=== PATIENT | female | born 1955 | race Caucasian/White ===

== ENCOUNTER 2016-10-02 20:17 | Observation (INO) ==
[2016-10-02] MEDS ORDERED: Ondansetron 4 MG/2 ML VIAL IVP ONE (20:47)
[2016-10-02] MEDS ORDERED: *HR* Morphine 2 MG/ML SYRINGE IVP ONE (21:16)
[2016-10-02] MEDS ORDERED: MethylPREDNISolone 40 MG/ML VIAL IVP ONE (22:18)
--- NOTE | 2016-10-02 22:20 | Emergency Department Note ---
Disposition Clinical Impression: Lumbar radiculopathy Disposition: Admitted As Inpatient Condition: Fair Time of Disposition: 21:45 Back Pain HPI - General Chief Complaint: ED Back Pain/Injury Stated Complaint: pain after sugery Source: patient, family, EMS Limitations: no limitations - History of Present Illness HPI Narrative: Mrs. Camp had surgery today at the [facility] near [place] by Dr. Ramos. She comes into the [place] ER tonight by squad because of increased pain that is causing vomiting. She has urinated normally since coming home earlier this afternoon. She has not had a bowel movement yet. Her main complaint is that the left-sided sciatica that she has had for months is no better and even worse than before surgery. She is able to move her left leg and is limited only by pain. She is not experiencing any weakness. No fevers chills shortness of breath or chest pain. En route to the ER she had 6 mg of morphine and 5 mg of Versed each IV and is feeling more comfortable as long as she does not move very much. - Related Data Home Medications Medication Instructions Recorded Confirmed Allopurinol [Zyloprim 300 MG] 300 mg PO DAILY 03/08/15 05/22/16 Aspirin [Adult Low Dose Aspirin EC] 81 mg PO DAILY 03/08/15 05/22/16 Estrogens, Conjugated [Premarin] 0.5 mg PO DAILY 03/08/15 05/22/16 Etodolac 400 mg PO BID 03/08/15 05/22/16 Hydroxychloroquine [Plaquenuil] 200 mg PO BID 03/08/15 05/22/16 Leflunomide [Arava] 1 tab PO DAILY 03/08/15 05/22/16 Lovastatin [Mevacor] 20 mg PO HS 03/08/15 05/22/16 Metoprolol [Lopressor] 50 mg PO DAILY 03/08/15 05/22/16 Omeprazole [PriLOSEC] 20 mg PO DAILY 03/08/15 05/22/16 Ranitidine HCl [Zantac] 150 mg PO BID 03/08/15 05/22/16 glipiZIDE [Glucotrol] 5 mg PO DAILY 03/08/15 05/22/16 metFORMIN [Glucophage] 500 mg PO BIDWM 03/08/15 05/22/16 predniSONE [PredniSONE] 5 mg PO DAILY 03/08/15 05/22/16 Folic Acid 1 mg PO DAILY 10/02/16 10/02/16 Furosemide [Lasix] 40 mg PO DAILY PRN 10/02/16 10/02/16 Gabapentin [Gralise] 600 mg PO BID 10/02/16 10/02/16 Mesalamine [Lialda] 2.4 gm PO DAILY 10/02/16 10/02/16 Sulfasalazine [Azulfidine] 500 mg PO DAILY 10/02/16 10/02/16 Previous Rx's Medication Instructions Recorded Oxycodone HCl/Acetaminophen 1 each PO QID #12 tablet 05/22/16 [Percocet 5-325 mg Tablet] Allergies Allergy/AdvReac Type Severity Reaction Status Date / Time Amoxicillin [From Augmentin] Allergy Difficulty Verified 10/02/16 20:32 Breathing aspirin [From Fiorinal] Allergy Difficulty Verified 10/02/16 20:32 Breathing butalbital [From Fiorinal] Allergy Difficulty Verified 10/02/16 20:32 Breathing caffeine [From Fiorinal] Allergy Difficulty Verified 10/02/16 20:32 Breathing clavulanic acid Allergy Difficulty Verified 10/02/16 20:32 [From Augmentin] Breathing codeine Allergy Difficulty Verified 10/02/16 20:32 Breathing Erythromycin Base Allergy Difficulty Verified 10/02/16 20:32 Breathing norfloxacin [From Noroxin] Allergy Difficulty Verified 10/02/16 20:32 Breathing Penicillins Allergy Difficulty Verified 10/02/16 20:32 Breathing Quinolones Allergy See Verified 10/02/16 20:32 Comments Tetracycline Allergy Difficulty Verified 10/02/16 20:32 Breathing epinephrine AdvReac Migraine Verified 10/02/16 20:32 Constitutional: Denies: fever, chills Cardiovascular: Denies: chest pain, palpitations Gastrointestinal: Reports: as per HPI, nausea, vomiting. Denies: abdominal pain Genitourinary: Reports: as per HPI. Denies: urgency, dysuria, frequency Musculoskeletal: Reports: back pain Neurological: Reports: numbness, paresthesias. Denies: weakness Past Medical History - Past Medical History Medical history: Reports: arthritis, diabetes, fibromyalgia, hyperlipidemia, kidney stones, RA, other Surgical history: Reports: cholecystectomy, hysterectomy, other Psychiatric history: Reports: no psych history CAT AND DOG BATHER history: Reports: no CAT AND DOG BATHER history - Social History Smoking Status: Never smoker Smokeless Tobacco Status: No Alcohol use: Reports: none Drug use: Reports: none Physical Exam - General Limitations: no limitations General appearance: alert, in no apparent distress - Head Head exam: normocephalic - Eye Eye exam: Present: normal appearance - ENT ENT exam: mucous membranes moist, other (Nasal cannula in place) - Neck Neck exam: Present: normal inspection - Respiratory Respiratory exam: Present: normal lung sounds bilaterally. Absent: respiratory distress, wheezes, stridor - Cardiovascular Cardiovascular exam: Present: normal rhythm, tachycardia (Just over 100 bpm), normal heart sounds. Absent: systolic murmur, diastolic murmur - Back Exam Back exam: Present: straight leg raise (R) (At 10 degrees positive pain reported right lumbar.), straight leg raise (L) (At 10 degrees positive pain reported left lumbar.), other (Surgical scar lumbar longitudinal approximately 3 cm in length. Mild erythema no exudate.) - Neurological Exam Neurological exam: Present: alert, motor sensory deficit (Left great toe numb on tactile stimulation. Motor testing left lower extremity limited by pain but appears to be 4-5/5. Mrs. Camp feels this to be her baseline.) - Psychiatric Psychiatric exam: Present: anxious - Skin Skin exam: Present: erythema (Erythema her back exam) Course Vital Signs Temperature 97.1 F L 10/02/16 20:20 Pulse Rate 112 10/02/16 20:20 Respiratory Rate 12 10/02/16 20:20 Blood Pressure 144/83 10/02/16 20:20 O2 Sat by Pulse Oximetry 96 10/02/16 20:20 Temperature 98.3 F 10/02/16 22:58 Pulse Rate 112 10/02/16 20:20 Respiratory Rate 12 10/02/16 22:58 Blood Pressure 115/77 10/02/16 22:58 O2 Sat by Pulse Oximetry 96 10/02/16 20:20 Oxygen Delivery Oxygen Delivery Nasal Cannula Back Pain/Injury - MDM Narrative Medical decision making narrative: Low back pain status post surgery. On reassessment after IV Zofran was given she felt still nauseated and not ready for a by mouth challenge. She reports that her pain is returning as well. Room air pulse ox after removing nasal cannula oxygen 92%. She does not appear to be in any respiratory distress. She did urinate once here in the emergency department with staff assistance onto a bedpan. It does not appear as though she will do well going home based on her physical limitations with activities of daily living secondary to the pain. Furthermore her nausea will limit any aggressive by mouth regimen that we might formulate here tonight. I spoke with the on-call OrthoNeuro physician oncology physician assistant at [phone]. I presented the case and she agreed that Mrs. Camp should not return home. I did inquire about advanced imaging mainly an MRI with a patient like Miss Camp and she did not believe that that was urgently necessary as she did not have any motor deficits and was hoping that we could admit here at [place] for pain control steroids and nausea control. Mrs. Camp is amenable to this. She was transferred to the floor in stable condition.
[2016-10-03 00:10] LABS: Basophils % 0.1 %; Hematocrit 33.7 % (35.3-44.9); Hemoglobin 10.7 g/dL (11.5-15.4); Immature Granulocytes % 0.4 % (0-4); Lymphocytes # 0.7 K/mcL (0.6-4.6); Lymphocytes % 8.7 %; Mean Corpuscular HGB Conc 31.8 g/dL (31.6-35.5); Mean Corpuscular Hemoglobin 26.4 pg (28.0-33.3); Mean Platelet Volume 9.5 fL (9.4-12.4); Monocytes # 0.2 K/mcL (0.0-1.3); Monocytes % 2.9 %; Platelet Count 243 K/mcL (140-400); Red Blood Count 4.06 M/mcL (3.82-4.97); Segmented Neutrophils % 87.9 %
[2016-10-03 00:20] LABS: Alanine Aminotransferase 24 Units/L (0-55); Albumin 2.9 g/dL (3.5-5.0); Albumin/Globulin Ratio 0.9 (1.1-2.2); Alkaline Phosphatase 87 Units/L (38-126); Aspartate Amino Transferase 30 Units/L (5-34); BUN/Creatinine Ratio 20 (6-26); Bilirubin,Total 0.4 mg/dL (0.2-1.2); Blood Urea Nitrogen 17 mg/dL (7-20); Carbon Dioxide 24 mEq/L (19-29); Chloride 106 mEq/L (98-109); Globulin 3.3 g/dL (2.4-3.5); Glucose 199 mg/dL (70-99); Osmolality,Calculated 299 (280-300); Potassium 4.2 mEq/L (3.5-4.5); Sodium 141 mEq/L (136-145); Total Protein 6.2 g/dL (6.0-8.3); eGFR For African Americans > 60 (> 60); eGFR For Non-African Americans > 60 (> 60)
[2016-10-03] MEDS ORDERED: Dextrose Gel 15 GM PO PRN ×2 (00:26)
[2016-10-03] MEDS ORDERED: *HR* Dextrose 50 % in Water (Syg) 50 ML SYRINGE IVP PRN (00:26)
[2016-10-03] MEDS ORDERED: D5% in Water 1,000 ML IVC PRN (00:26)
[2016-10-03 00:35] LABS: INR 1.1; Prothrombin Time 11.3 Seconds (9.4-12.1)
[2016-10-03 00:38] LABS: Activated Partial Thrombo Time 29.3 Seconds (26.0-36.0)
[2016-10-03] MEDS: *HR* HYDROmorphone (PF) 1 MG/ML SYRINGE IVP PRN ×2 (02:38→08:12)
[2016-10-03] MEDS: Ondansetron 4 MG/2 ML VIAL IVP PRN ×2 (02:38→08:12)
[2016-10-03] MEDS: Insulin LISPRO 300 UNITS/3 ML VIAL SQ SCH ×2 (08:48→12:59)
[2016-10-03] MEDS ORDERED: *HR* HYDROmorphone 2 MG/ML SYRINGE IVP ONE ×3 (10:45→15:32)
[2016-10-03 11:56] VITALS: BP 118/83
[2016-10-03] MEDS ORDERED: *HR* HYDROmorphone 2 MG/ML SYRINGE IVP PRN (13:29)
[2016-10-03] MEDS ORDERED: diazePAM 10 MG/2 ML SYRINGE IVP PRN (13:30)
--- NOTE | 2016-10-03 14:27 | Internal Med History&Physical ---
Date of Encounter: 10/03/16 Time of Encounter: 14:25 Assessment and Plan (1) S/P discectomy for herniated nucleus pulposus Current visit: Yes Status: Acute Patient had a discectomy yesterday for the above-mentioned problem. She has had unrelenting pain and cannot ambulate since surgery. Spoke with her physician substance addiction coordinator who will except patient on transfer to the [facility] - H&P: HPI Chief complaint: Patient admitted for uncontrolled pain status post disc ectomy Admitted From: Emergency Dept Plans for Post Hospital Care: Transfer Other History of present illness: Ms. Camp is a 61 year old female She had has uncontrolled pain after surgery from the [facility]. I spoken to the neurosurgical call Dr. Gaitan is accepted the patient for transfer to the [facility] Past Med Surg Social Fam HX - Past Medical History Medical history: arthritis, diabetes, fibromyalgia, hyperlipidemia, kidney stones, RA, other Psychiatric history: no psych history - Past Surgical History Surgical History: cholecystectomy, hysterectomy, other - Social History Smoking Status: Never smoker Smokeless Tobacco Status: No Alcohol use: none Drug use: none - Family History Mother History Unknown: Yes Father History Unknown: Yes Internal Medicine - H&P: Meds Allopurinol [Zyloprim 300 MG] 300 mg PO DAILY 03/08/15 [History] Aspirin [Adult Low Dose Aspirin EC] 81 mg PO DAILY 03/08/15 [History] Estrogens, Conjugated [Premarin] 0.5 mg PO DAILY 03/08/15 [History] Etodolac 400 mg PO BID 03/08/15 [History] Hydroxychloroquine [Plaquenuil] 200 mg PO BID 03/08/15 [History] Leflunomide [Arava] 1 tab PO DAILY 03/08/15 [History] Lovastatin [Mevacor] 20 mg PO HS 03/08/15 [History] Metoprolol [Lopressor] 50 mg PO DAILY 03/08/15 [History] Omeprazole [PriLOSEC] 20 mg PO DAILY 03/08/15 [History] Ranitidine HCl [Zantac] 150 mg PO BID 03/08/15 [History] glipiZIDE [Glucotrol] 5 mg PO DAILY 03/08/15 [History] metFORMIN [Glucophage] 500 mg PO BIDWM 03/08/15 [History] predniSONE [PredniSONE] 5 mg PO DAILY 03/08/15 [History] Oxycodone HCl/Acetaminophen [Percocet 5-325 mg Tablet] 1 each PO QID #12 tablet 05/22/16 [Rx] Folic Acid 1 mg PO DAILY 10/02/16 [History] Furosemide [Lasix] 40 mg PO DAILY PRN 10/02/16 [History] Gabapentin [Gralise] 600 mg PO BID 10/02/16 [History] Mesalamine [Lialda] 2.4 gm PO DAILY 10/02/16 [History] Sulfasalazine [Azulfidine] 500 mg PO DAILY 10/02/16 [History] Allergies Amoxicillin [From Augmentin] Allergy (Verified 10/02/16 23:51) Difficulty Breathing aspirin [From Fiorinal] Allergy (Verified 10/02/16 23:51) Difficulty Breathing butalbital [From Fiorinal] Allergy (Verified 10/02/16 23:51) Difficulty Breathing caffeine [From Fiorinal] Allergy (Verified 10/02/16 23:51) Difficulty Breathing clavulanic acid [From Augmentin] Allergy (Verified 10/02/16 23:51) Difficulty Breathing codeine Allergy (Verified 10/02/16 23:51) Difficulty Breathing Erythromycin Base Allergy (Verified 10/02/16 23:51) Difficulty Breathing norfloxacin [From Noroxin] Allergy (Verified 10/02/16 23:51) Difficulty Breathing Penicillins Allergy (Verified 10/02/16 23:51) Difficulty Breathing Quinolones Allergy (Verified 10/02/16 23:51) See Comments Tetracycline Allergy (Verified 10/02/16 23:51) Difficulty Breathing epinephrine Adverse Reaction (Verified 10/02/16 23:51) Migraine All Systems PM: A 10-system review of systems was performed and is negative for pertinent findings except as documented above in the HPI. - Constitutional Vitals: Temp Pulse Resp BP Pulse Ox 98.1 F 107 18 118/83 97 10/03/16 11:55 10/03/16 11:55 10/03/16 11:55 10/03/16 11:55 10/03/16 11:55 General appearance: Present: severe distress - Head Head exam: Present: atraumatic, normal inspection, normocephalic - Neck Neck exam general surgery: Present: supple, trachea midline. Absent: lymphadenopathy - Respiratory Respiratory exam: Present: CTAB. Absent: accessory muscle use, rales, rhonchi, wheezes - Cardiovascular Cardiovascular exam: Present: RRR, +S1, +S2. Absent: diastolic murmur, gallop, rubs, systolic murmur - GI/Abdominal GI/Abdominal exam: Present: normal bowel sounds, soft, no peritoneal signs. Absent: distended, tenderness - Back Exam Back exam: Present: muscle spasm Additional comments: Fear pain at the surgical site. Dressings clean and dry. She has cephalgia so I suspect CSF leak. - Neurological Exam Neurological exam: Present: CN II-XII intact, oriented X3, no focal deficits. Absent: pronater drift, facial droop, speech deficit Additional comments: Patient is somewhat decreased sensation left leg. She states her toes a bit numb for several months. She had a previous laminectomy in June. Internal Med - H&P Results - Labs CBC & Chem 7: 10/02/16 23:55 10/02/16 23:55 Labs: Short CBC 10/02/16 Range/Units 23:55 WBC 8.0 D (4.3-11.1) K/mcL Hgb 10.7 L (11.5-15.4) g/dL Hct 33.7 L (35.3-44.9) % Plt Count 243 (140-400) K/mcL Neutrophils # 7.0 (1.6-8.9) K/mcL BMP 10/02/16 23:55 Sodium 141 Potassium 4.2 Chloride 106 Carbon Dioxide 24 BUN 17 Creatinine 0.83 Glucose 199 H Calcium 9.0 Liver Function 10/02/16 Range/Units 23:55 Total Bilirubin 0.4 (0.2-1.2) mg/dL AST 30 (5-34) Units/L ALT 24 (0-55) Units/L Alkaline Phosphatase 87 (38-126) Units/L Albumin 2.9 L (3.5-5.0) g/dL Her lab is stable - VTE Documentation of Mechanical Device: Graduated compression elastic hosiery
--- NOTE | 2016-10-03 14:33 | Discharge Summary ---
Date of Encounter: 10/03/16 Time of Encounter: 14:31 - Discharge Diagnosis (1) S/P discectomy for herniated nucleus pulposus Priority: Primary Status: Acute Comments: Patient's had unrelenting pain. - Discharge Medications Home Medications: Allopurinol [Zyloprim 300 MG] 300 mg PO DAILY 03/08/15 [History] Aspirin [Adult Low Dose Aspirin EC] 81 mg PO DAILY 03/08/15 [History] Estrogens, Conjugated [Premarin] 0.5 mg PO DAILY 03/08/15 [History] Etodolac 400 mg PO BID 03/08/15 [History] Hydroxychloroquine [Plaquenuil] 200 mg PO BID 03/08/15 [History] Leflunomide [Arava] 1 tab PO DAILY 03/08/15 [History] Lovastatin [Mevacor] 20 mg PO HS 03/08/15 [History] Metoprolol [Lopressor] 50 mg PO DAILY 03/08/15 [History] Omeprazole [PriLOSEC] 20 mg PO DAILY 03/08/15 [History] Ranitidine HCl [Zantac] 150 mg PO BID 03/08/15 [History] glipiZIDE [Glucotrol] 5 mg PO DAILY 03/08/15 [History] metFORMIN [Glucophage] 500 mg PO BIDWM 03/08/15 [History] predniSONE [PredniSONE] 5 mg PO DAILY 03/08/15 [History] Oxycodone HCl/Acetaminophen [Percocet 5-325 mg Tablet] 1 each PO QID #12 tablet 05/22/16 [Rx] Folic Acid 1 mg PO DAILY 10/02/16 [History] Furosemide [Lasix] 40 mg PO DAILY PRN 10/02/16 [History] Gabapentin [Gralise] 600 mg PO BID 10/02/16 [History] Mesalamine [Lialda] 2.4 gm PO DAILY 10/02/16 [History] Sulfasalazine [Azulfidine] 500 mg PO DAILY 10/02/16 [History] Allergies/Adverse Reactions: Allergies Amoxicillin [From Augmentin] Allergy (Verified 10/02/16 23:51) Difficulty Breathing aspirin [From Fiorinal] Allergy (Verified 10/02/16 23:51) Difficulty Breathing butalbital [From Fiorinal] Allergy (Verified 10/02/16 23:51) Difficulty Breathing caffeine [From Fiorinal] Allergy (Verified 10/02/16 23:51) Difficulty Breathing clavulanic acid [From Augmentin] Allergy (Verified 10/02/16 23:51) Difficulty Breathing codeine Allergy (Verified 10/02/16 23:51) Difficulty Breathing Erythromycin Base Allergy (Verified 10/02/16 23:51) Difficulty Breathing norfloxacin [From Noroxin] Allergy (Verified 10/02/16 23:51) Difficulty Breathing Penicillins Allergy (Verified 10/02/16 23:51) Difficulty Breathing Quinolones Allergy (Verified 10/02/16 23:51) See Comments Tetracycline Allergy (Verified 10/02/16 23:51) Difficulty Breathing epinephrine Adverse Reaction (Verified 10/02/16 23:51) Migraine Date of admission: 10/02/16 22:55 Primary care physician: Shaq Hills Discharging clinician: [place] Anticipated date of discharge: 10/03/16 - Patient Status Disposition: Transfer Other Condition: Fair Functional capacity at discharge: bed bound Overall status at discharge: patient is not back to baseline - Discharge Instructions Follow Up With: Tj Elizondo DO [Primary Care Provider] - - Diet and Activity Activity: as per physical therapy Diet: diabetic diet Interval History: She arrived home yesterday she could not ambulate family had incredibly difficult time just going from the car which was parked at the [employer] [place] to the house. She began crying out in pain. She has been hysterical. The patient was vomiting so she did not keep any pain meds down. So the eyes which dosed IV. She still states she is not getting much relief. That is with 2 of IV Dilaudid and 5 mg IV Valium Hospital course: Ms. Camp is a 61 year old female - Time Spent with Patient Total time spent providing and/or coordinating discharge services: Greater than 30 minutes - Constitutional Vitals: Temp Pulse Resp BP Pulse Ox 98.1 F 107 18 118/83 97 10/03/16 11:55 10/03/16 11:55 10/03/16 11:55 10/03/16 11:55 10/03/16 11:55 General appearance: Present: severe distress - Head Head exam: Present: atraumatic, normal inspection, normocephalic - Neck Neck exam general surgery: Present: supple, trachea midline. Absent: lymphadenopathy - Respiratory Respiratory exam: Present: CTAB. Absent: accessory muscle use, rales, rhonchi, wheezes - Cardiovascular Cardiovascular exam: Present: RRR, +S1, +S2. Absent: diastolic murmur, gallop, rubs, systolic murmur - Back Exam Back exam: Present: muscle spasm Additional comments: Patient cannot get comfortable rolls from side to side and moans and states the pain is terrible - Neurological Exam Neurological exam: Present: CN II-XII intact, oriented X3, no focal deficits. Absent: pronater drift, facial droop, speech deficit Additional comments: Dates decreased sensation left leg. - VTE Documentation of Mechanical Device: Graduated compression elastic hosiery
[2016-10-03] MEDS ORDERED: Insulin LISPRO 300 UNITS/3 ML VIAL SQ SCH (21:00)
== END 2016-10-03 16:10 | disposition short-term general hospital (02) ==
LOC: INPGRE 20:17 → EMEROOGRE 20:17 → INPGRE 23:07
PROVIDERS: ADMIT Internal Medicine; ATTEND Internal Medicine

== ENCOUNTER 2017-02-15 12:19 | Inpatient (IN) ==
[2017-02-15] MEDS ORDERED: Furosemide 40 MG TABLET PO PRN (19:40)
[2017-02-15] MEDS ORDERED: *HR* OxyCODONE/APAP 5/325 TABLET PO PRN (19:40)
[2017-02-15] MEDS: Famotidine 20 MG TABLET PO SCH (20:09)
[2017-02-15] MEDS: *HR* OxyCODONE/APAP 10/325 TABLET PO PRN (20:10)
[2017-02-16] MEDS: *HR* OxyCODONE/APAP 10/325 TABLET PO PRN ×4 (02:19→20:57)
[2017-02-16 07:26] LABS: Basophils % 0.5 %; Eosinophils # 0.1 K/mcL (0.0-0.6); Eosinophils % 1.2 %; Hematocrit 25.1 % (35.3-44.9); Hemoglobin 7.6 g/dL (11.5-15.4); Immature Granulocytes % 0.9 % (0-4); Lymphocytes # 2.7 K/mcL (0.6-4.6); Lymphocytes % 33.2 %; Mean Corpuscular HGB Conc 30.3 g/dL (31.6-35.5); Mean Corpuscular Volume 95.8 fL (83.0-100.0); Mean Platelet Volume 9.2 fL (9.4-12.4); Monocytes # 0.8 K/mcL (0.0-1.3); Monocytes % 10.3 %; Neutrophils # 4.4 K/mcL (1.6-8.9); Platelet Count 269 K/mcL (140-400); Red Blood Count 2.62 M/mcL (3.82-4.97); Red Cell Distribution Width 15.1 % (11.5-14.5); Segmented Neutrophils % 53.9 %
[2017-02-16 07:34] LABS: INR 1.1; Prothrombin Time 11.6 Seconds (9.4-12.1)
[2017-02-16 07:37] LABS: Activated Partial Thrombo Time 24.4 Seconds (26.0-36.0)
[2017-02-16 07:42] LABS: BUN/Creatinine Ratio 15 (6-26); Blood Urea Nitrogen 11 mg/dL (7-20); Calcium 8.8 mg/dL (8.6-10.8); Carbon Dioxide 26 mEq/L (19-29); Chloride 106 mEq/L (98-109); Glucose 110 mg/dL (70-99); Osmolality,Calculated 292 (280-300); Potassium 3.7 mEq/L (3.5-4.5); Sodium 141 mEq/L (136-145); eGFR For African Americans > 60 (> 60); eGFR For Non-African Americans > 60 (> 60)
[2017-02-16] MEDS: *HR* Metformin 500 MG TABLET PO SCH ×2 (08:50→16:54)
[2017-02-16] MEDS: Famotidine 20 MG TABLET PO SCH ×2 (08:50→20:56)
[2017-02-16] MEDS: Gabapentin 300 MG CAPSULE PO SCH ×2 (08:50→16:54)
[2017-02-16] MEDS: predniSONE 5 MG TABLET PO SCH (08:50)
[2017-02-16] MEDS: (Leflunomide [Arava] 20 MG) PO SCH (08:50)
[2017-02-16] MEDS: sulfaSALAzine 500 MG TABLET PO SCH (09:08)
--- NOTE | 2017-02-16 11:50 | Internal Med History&Physical ---
<LynnSalinas S - Last Filed: 02/16/17 13:54> Date of Encounter: 02/16/17 Internal Medicine - H&P: HPI History of present illness: Ms. Camp is a 61 year old female Internal Medicine - H&P: Meds Allopurinol [Zyloprim 300 MG] 300 mg PO DAILY 03/08/15 [History] Aspirin [Adult Low Dose Aspirin EC] 81 mg PO DAILY 03/08/15 [History] Hydroxychloroquine [Plaquenuil] 200 mg PO BID 03/08/15 [History] Leflunomide [Arava] 20 mg PO DAILY 03/08/15 [History] Lovastatin [Mevacor] 20 mg PO HS 03/08/15 [History] Metoprolol [Lopressor] 50 mg PO DAILY 03/08/15 [History] Omeprazole [PriLOSEC] 20 mg PO DAILY 03/08/15 [History] Ranitidine HCl [Zantac] 150 mg PO BID 03/08/15 [History] glipiZIDE [Glucotrol] 5 mg PO 1700 03/08/15 [History] metFORMIN [Glucophage] 500 mg PO BIDWM 03/08/15 [History] predniSONE [PredniSONE] 5 mg PO DAILY 03/08/15 [History] Folic Acid 1 mg PO 1200 10/02/16 [History] Furosemide [Lasix] 40 mg PO DAILY PRN 10/02/16 [History] Gabapentin [Gralise] 600 mg PO BIDWM 10/02/16 [History] Mesalamine [Lialda] 2.4 gm PO 1200 10/02/16 [History] Sulfasalazine [Azulfidine] 500 mg PO DAILY 10/02/16 [History] Estradiol 0.5 mg PO HS 02/15/17 [History] OxyCODONE/APAP 5/325 [Percocet 5/325 MG] 1 each PO Q4HR PRN 02/15/17 [History] 3 Allergy/AdvReac Type Severity Reaction Status Date / Time Amoxicillin [From Augmentin] Allergy Difficulty Verified 02/10/17 10:42 Breathing aspirin [From Fiorinal] Allergy Difficulty Verified 02/10/17 10:42 Breathing butalbital [From Fiorinal] Allergy Difficulty Verified 02/10/17 10:42 Breathing caffeine [From Fiorinal] Allergy Difficulty Verified 02/10/17 10:42 Breathing clavulanic acid Allergy Difficulty Verified 02/10/17 10:42 [From Augmentin] Breathing codeine Allergy Difficulty Verified 02/10/17 10:42 Breathing Erythromycin Base Allergy Difficulty Verified 02/10/17 10:42 Breathing norfloxacin [From Noroxin] Allergy Difficulty Verified 02/10/17 10:42 Breathing Penicillins Allergy Difficulty Verified 02/10/17 10:42 Breathing Quinolones Allergy See Verified 02/10/17 10:42 Comments Tetracycline Allergy Difficulty Verified 02/10/17 10:42 Breathing epinephrine AdvReac Migraine Verified 02/10/17 10:42 All Systems PM: A 10-system review of systems was performed and is negative for pertinent findings except as documented above in the HPI. - Constitutional Vitals: Temp Pulse Resp BP Pulse Ox 98.6 F 98 18 139/76 94 02/16/17 12:00 02/16/17 12:00 02/16/17 12:00 02/16/17 12:00 02/16/17 12:00 Internal Med - H&P Results - Labs CBC & Chem 7: 02/16/17 07:10 02/16/17 07:10 Labs: Short CBC 02/16/17 Range/Units 07:10 WBC 8.2 (4.3-11.1) K/mcL Hgb 7.6 L D (11.5-15.4) g/dL Hct 25.1 L (35.3-44.9) % Plt Count 269 (140-400) K/mcL Neutrophils # 4.4 (1.6-8.9) K/mcL BMP 02/16/17 07:10 Sodium 141 Potassium 3.7 Chloride 106 Carbon Dioxide 26 BUN 11 Creatinine 0.72 Glucose 110 H Calcium 8.8 <Aakash Moy - Last Filed: 02/17/17 16:09> Date of Encounter: 02/17/17 Time of Encounter: 11:48 Assessment and Plan (1) S/P discectomy for herniated nucleus pulposus Current visit: Yes Status: Acute Patient admitted for physical therapy evaluation and therapy secondary to deconditioning. Status post surgical lumbar laminectomy. Patient continues to have residual neurological deficits that include left lower leg radiculopathy and paresthesia. Patient noted to have slight motor weakness to left lower leg , which likely results and unstable gait. We will continue to evaluate patient' s pain management after therapy begins. We will start patient on a muscle relaxant such as Flexeril due to current complaints of pain medication not lasting long enough. (2) Diabetes mellitus Current visit: Yes Status: Chronic Patient is a type II diabetic with oral coverage. Patient currently with admission labs shows elevated glucose greater than 150. 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 Patient's baseline renal values show creatinine of 0.7 and B UN of 11 on her admission labs. We will continue current medications Qualifiers: Chronic kidney disease stage: unspecified stage Qualified Code(s): N18.9 - Chronic kidney disease, unspecified (4) Hypertension Current visit: Yes Status: Chronic Currently vital signs are stable. We will continue with current medications. Qualifiers: Hypertension type: essential hypertension Qualified Code(s): I10 - Essential (primary) hypertension Internal Medicine - H&P: HPI Chief complaint: deconditioning s/p lumbar laminectomy Admitted From: Hospital to Hospital Transfer Plans for Post Hospital Care: Home History of present illness: Ms. Camp is a 61 year old female who was admitted for deconditioning secondary to a L4-L5 lumbar laminectomy/fusion. Pt states a long Hx of lumbar disc disease , which includes two previous laminectomies and multiple past interventions. Pt states that she she had radicular symptoms to the left hip and leg that included pain radiating down the back of the leg to the foot, slight decreased motor strength and parasthesia to the lower leg and top of the foot. Pt states that these symptoms have only slightly improved since her surgery. States that her pain meds have been effective, but do not last long between dosing. Past Med Surg Social Fam HX - Past Medical History Source: patient Medical history: arthritis, diabetes, fibromyalgia, hyperlipidemia, hypertension , kidney stones, RA, renal disease, other (History of lupus, chronic kidney disease, hiatal hernia, GERD, chronic anemia) Psychiatric history: no psych history - Past Surgical History Surgical History: cholecystectomy, hysterectomy, other (Patient also has a history of a laminectomy, kidney stones, cholecystectomy, hysterectomy, carpal tunnel) - Social History Smoking Status: Never smoker Smokeless Tobacco Status: No Alcohol use: none Drug use: none Occupational status: previously employed Current living situation: Home, With Family Recent Out of Country Travel Within the Last 8 Weeks: No Exposure or Possible Exposure to Illness During Travel: No - Family History Father Hx Family Neurologic Disorders: Yes (CVA) Mother Hx Family Respiratory Disorders: Yes (copd) All Systems PM: A 10-system review of systems was performed and is negative for pertinent findings except as documented above in the HPI. - Constitutional Constitutional: as per HPI, fatigue, weakness Additional comments: Patient c/o increased weakness and parasthesia to the entire left leg. Also, c/ o of radicular pain to the left hip, radiating down to the foot. - EENT Eyes: as per HPI, no change in vision, no discharge, no pain, no photophobia Ears: no ear discharge, no ear pain, no tinnitus Nose, mouth and throat: no dysphagia, no nasal discharge, no neck pain, no sore throat - Breasts Breasts: as per HPI - Cardiovascular Cardiovascular ROS IM: as per HPI, no chest pain, no diaphoresis, no dyspnea, no dyspnea on exertion, no edema, no lightheadedness, no palpitations, no syncope - Respiratory Respiratory: no cough, no dyspnea, no wheezing, no excessive phlegm production - Gastrointestinal Gastrointestinal: constipation, no abdominal pain, no diarrhea, no hematemesis, no hematochezia, no melena, no nausea, no vomiting - Genitourinary Genitourinary: urinary hesitancy, no change in urinary stream, no dysuria, no flank pain, no hematuria Menstruation: post hysterectomy - Musculoskeletal Musculoskeletal ROS IM: back pain, limited range of motion, muscle weakness, numbness, tingling, no atrophy, no joint swelling, no muscle cramps, no neck pain, no stiffness - Integumentary Integumentary IM: no rash, no unusual bruising - Neurological Neurological ROS: as per HPI, paresthesias, radicular pain, weakness, no restless legs - Psychiatric Psychiatric: as per HPI, no anxiety, no behavioral changes, no confusion, no depression - Endocrine Endocrine IM: as per HPI - Hematologic/Lymphatic Hematologic/Lymphatic: as per HPI - Allergic/Immunologic Allergic/Immunologic: as per HPI - Constitutional Vitals: Temp Pulse Resp BP Pulse Ox 98.6 F 96 18 139/76 94 02/16/17 07:16 02/16/17 07:16 02/16/17 07:16 02/16/17 07:16 02/16/17 07:16 General appearance: Present: A&O X 3, no acute distress, obese - Head Head exam: Present: atraumatic, normocephalic - Eye Eye exam: Present: PERRL, conjuntiva pink, sclera anicteric Pupils: Present: PERRL - Neck Neck exam general surgery: Present: supple, trachea midline. Absent: lymphadenopathy - Respiratory Respiratory exam: Present: decreased breath sounds (Patient with diminished breath sounds to lower posterior stark), CTAB. Absent: accessory muscle use, rales, rhonchi, wheezes - Expanded Respiratory Exam Location: decreased breath sounds: Lower, Right, Left - Cardiovascular Cardiovascular exam: Present: RRR, +S1, +S2. Absent: diastolic murmur, gallop, rubs, systolic murmur - GI/Abdominal GI/Abdominal exam: Present: normal bowel sounds, soft, no peritoneal signs. Absent: distended, tenderness - Back Exam Back exam: Present: normal inspection (Surgical incision the lower lumbar area appears dry and intact and healing well) - Neurological Exam Neurological exam: Present: CN II-XII intact, oriented X3, reflexes normal Additional comments: Patient noted to have slight motor weakness to the left lower leg with MS 5/5 to the BUE and RLE. Noted MS of 4/5 to the LLE on prox/distal and ext/flex. Patient states paresthesia type symptoms to left lower leg. Noted diminished sensation to sharp on the left lateral leg and top of the left foot. - Psychiatric Psychiatric exam: Present: normal affect, normal mood - Skin Skin exam: Present: dry, normal color, warm Internal Med - H&P Results - Labs CBC & Chem 7: 02/17/17 05:04 02/16/17 07:10 Labs: Short CBC 02/16/17 Range/Units 07:10 WBC 8.2 (4.3-11.1) K/mcL Hgb 7.6 L D (11.5-15.4) g/dL Hct 25.1 L (35.3-44.9) % Plt Count 269 (140-400) K/mcL Neutrophils # 4.4 (1.6-8.9) K/mcL BMP 02/16/17 07:10 Sodium 141 Potassium 3.7 Chloride 106 Carbon Dioxide 26 BUN 11 Creatinine 0.72 Glucose 110 H Calcium 8.8 - VTE Documentation of Mechanical Device: Graduated compression elastic hosiery
[2017-02-16] MEDS: Folic Acid 1 MG TABLET PO SCH (13:40)
[2017-02-16] MEDS: MESALAMINE PO SCH (13:40)
[2017-02-16] MEDS: *HR* Morphine Sulfate SR (12 HR) 15 MG TABLET.ER PO SCH (14:53)
[2017-02-16] MEDS: *HR* GlipiZIDE 5 MG TABLET PO SCH (16:55)
[2017-02-17] MEDS: *HR* Morphine Sulfate SR (12 HR) 15 MG TABLET.ER PO SCH ×2 (02:28→14:50)
[2017-02-17 05:11] LABS: Basophils % 0.6 %; Eosinophils # 0.1 K/mcL (0.0-0.6); Eosinophils % 1.8 %; Hematocrit 25.9 % (35.3-44.9); Hemoglobin 7.9 g/dL (11.5-15.4); Immature Granulocytes % 0.7 % (0-4); Lymphocytes # 2.5 K/mcL (0.6-4.6); Mean Corpuscular HGB Conc 30.5 g/dL (31.6-35.5); Mean Corpuscular Hemoglobin 29.5 pg (28.0-33.3); Mean Corpuscular Volume 96.6 fL (83.0-100.0); Mean Platelet Volume 8.9 fL (9.4-12.4); Monocytes # 0.7 K/mcL (0.0-1.3); Monocytes % 10.5 %; Neutrophils # 3.2 K/mcL (1.6-8.9); Nucleated Red Blood Cells 0.3 /100 WBC (0); Platelet Count 283 K/mcL (140-400); Red Blood Count 2.68 M/mcL (3.82-4.97); Red Cell Distribution Width 15.2 % (11.5-14.5); Segmented Neutrophils % 48.4 %
[2017-02-17] MEDS: *HR* OxyCODONE/APAP 10/325 TABLET PO PRN ×4 (05:41→21:48)
[2017-02-17] MEDS: *HR* Metformin 500 MG TABLET PO SCH ×2 (09:47→16:36)
[2017-02-17] MEDS: sulfaSALAzine 500 MG TABLET PO SCH (09:47)
[2017-02-17] MEDS: Aspirin Enteric Coated 81 MG Tablet PO SCH (09:47)
[2017-02-17] MEDS: Famotidine 20 MG TABLET PO SCH ×2 (09:47→21:47)
[2017-02-17] MEDS: predniSONE 5 MG TABLET PO SCH (09:48)
[2017-02-17] MEDS: Gabapentin 300 MG CAPSULE PO SCH ×2 (09:48→16:36)
[2017-02-17] MEDS: (Leflunomide [Arava] 20 MG) PO SCH (09:48)
[2017-02-17] MEDS: MESALAMINE PO SCH (10:59)
[2017-02-17] MEDS: *HR* Enoxaparin 40 MG/0.4 ML SYRINGE SQ SCH (11:01)
[2017-02-17] MEDS: Folic Acid 1 MG TABLET PO SCH (11:01)
--- NOTE | 2017-02-17 11:31 | Internal Med Progress Note ---
<Aakash Moy - Last Filed: 02/17/17 16:09> Date of Encounter: 02/17/17 Time of Encounter: 16:09 - Assessment and plan (1) S/P discectomy for herniated nucleus pulposus Status: Acute Assessment and plan: No acute issues. Patient needs to have radicular symptoms to her left hip and leg. States her pain has improved with the addition of the Flexeril. We will continue to monitor closely as patient progresses during physical therapy. Surgical incision appears to be healing well, but noted caused still attached to the right incision. We will continue to attempt to remove gauze without disrupting surgical incision. We will continue with current therapy (2) Diabetes mellitus Status: Chronic Assessment and plan: Patient started him on fingersticks to violate current coverage needs. Patient currently has had fingersticks have all been less than 200. We will continue to monitor fingersticks and continue with current coverage ordered Qualifiers: Diabetes mellitus type: type 2 Diabetes mellitus complication status: without complication Diabetes mellitus assisted insulin use: with adjunct faculty for medical terminology use Qualified Code(s): E11.9 - Type 2 diabetes mellitus without complications (3) Chronic kidney disease Status: Chronic Assessment and plan: No acute issues will continue with current medications. We will reevaluate labs in 1 week Qualifiers: Chronic kidney disease stage: unspecified stage Qualified Code(s): N18.9 - Chronic kidney disease, unspecified (4) Hypertension Status: Chronic Assessment and plan: Vital signs stable continue with current medications Qualifiers: Hypertension type: essential hypertension Qualified Code(s): I10 - Essential (primary) hypertension - Subjective Interval history: Patient currently complains of moderate low back pain with radicular pain to the left leg, which she states is tolerable with current pain medications. Patient states that her pain is improved since starting on Flexeril yesterday. States that her pain currently is secondary to starting her physical therapy. - Constitutional Vitals: Temp Pulse Resp BP Pulse Ox 98.3 F 92 18 127/77 94 02/17/17 07:00 02/17/17 07:00 02/17/17 07:00 02/17/17 07:00 02/17/17 07:00 General appearance: Present: A&O X 3, no acute distress, obese - Head Head exam: Present: atraumatic, normocephalic - Neck Neck exam general surgery: Present: full ROM, supple, trachea midline. Absent: lymphadenopathy - Respiratory Respiratory exam: Present: CTAB. Absent: accessory muscle use, rales, rhonchi, wheezes Additional comments: Respiratory rate is regular and relaxed - Cardiovascular Cardiovascular exam: Present: RRR, +S1, +S2. Absent: diastolic murmur, gallop, rubs, systolic murmur - GI/Abdominal GI/Abdominal exam: Present: normal bowel sounds, soft, no peritoneal signs. Absent: distended, tenderness - Incison Comments: Patient has 2 incisions to her lower lumbar area which are parallel to the spine. Left incision remains intact and appears to be healing well. Right incision remains intact and healing well, but noted small amount of dressing gauze that is attached to the incision. Both incisions were sealed with surgical glue. No erythema or drainage noted. No edema. - Neurological Exam Neurological exam: Present: CN II-XII intact, oriented X3, no focal deficits. Absent: pronater drift, facial droop, speech deficit Additional comments: Patient continues with complaints of pain radiating to her left hip and lower leg. Continued decreased sharp sensation to left lateral leg and foot. No clonus. Muscle strength remains 5/5 to BUE and RLE and +4/5 to the LLE - Skin Skin exam: Present: dry, intact Internal Medicine: Result - Labs CBC & Chem 7: 02/17/17 05:04 02/16/17 07:10 Labs: Short CBC 02/17/17 Range/Units 05:04 WBC 6.7 (4.3-11.1) K/mcL Hgb 7.9 L (11.5-15.4) g/dL Hct 25.9 L (35.3-44.9) % Plt Count 283 (140-400) K/mcL Neutrophils # 3.2 (1.6-8.9) K/mcL - ABG Interpretation ABG results: PT/INR, D-dimer PT 11.6 Seconds (9.4-12.1) 02/16/17 07:10 - VTE Documentation of Mechanical Device: Graduated compression elastic hosiery Consult Discharge Plan - Plan Instructions: Lumbar Spinal Fusion (DC) Referrals: Tj Elizondo DO [Primary Care Provider] - 02/26/17 1:30 pm Candida Ramos DO [Non-Partnered Physician] - 03/10/17 11:15 am Prescriptions: Morphine Sulfate SR (12 HR) [MS Contin] 15 mg PO Q12H #30 tablet.er <Salinas Lynn - Last Filed: 02/24/17 13:16> Date of Encounter: 02/24/17 - Constitutional Vitals: Temp Pulse Resp BP Pulse Ox 97.9 F 83 14 132/77 93 02/19/17 07:00 02/19/17 07:00 02/19/17 07:00 02/19/17 07:00 02/19/17 07:00 Internal Medicine: Result - Labs CBC & Chem 7: 02/17/17 05:04 02/16/17 07:10 - ABG Interpretation ABG results: PT/INR, D-dimer PT 11.6 Seconds (9.4-12.1) 02/16/17 07:10
[2017-02-17] MEDS: *HR* GlipiZIDE 5 MG TABLET PO SCH (16:36)
[2017-02-18] MEDS: *HR* Morphine Sulfate SR (12 HR) 15 MG TABLET.ER PO SCH ×2 (02:30→14:56)
[2017-02-18] MEDS: *HR* Enoxaparin 40 MG/0.4 ML SYRINGE SQ SCH (06:41)
[2017-02-18] MEDS: *HR* OxyCODONE/APAP 10/325 TABLET PO PRN ×3 (08:28→21:34)
[2017-02-18] MEDS: Gabapentin 300 MG CAPSULE PO SCH ×2 (08:28→17:31)
[2017-02-18] MEDS: sulfaSALAzine 500 MG TABLET PO SCH (08:28)
[2017-02-18] MEDS: Famotidine 20 MG TABLET PO SCH ×2 (08:28→21:32)
[2017-02-18] MEDS: predniSONE 5 MG TABLET PO SCH (08:28)
[2017-02-18] MEDS: Aspirin Enteric Coated 81 MG Tablet PO SCH (08:28)
[2017-02-18] MEDS: *HR* Metformin 500 MG TABLET PO SCH ×2 (08:28→17:32)
[2017-02-18] MEDS: (Leflunomide [Arava] 20 MG) PO SCH (08:36)
--- NOTE | 2017-02-18 10:57 | Internal Med Progress Note ---
Date of Encounter: 02/18/17 Time of Encounter: 11:17 - Assessment and plan (1) S/P discectomy for herniated nucleus pulposus Current Visit: Yes Status: Acute Assessment and plan: No acute issues. Patient continues to have radicular symptoms to her left hip and leg, but has improved during therapy over the last 2 days.. S We will continue to monitor closely as patient progresses during physical therapy. Surgical incision appears to be healing well, but noted caused still attached to the right incision. We will continue to attempt to remove gauze without disrupting surgical incision. We will continue with current therapy (2) Diabetes mellitus Current Visit: Yes Status: Chronic Assessment and plan: Patient glucose has remained greater than 200 on fingersticks. We will increase current metformin dosing to 1000 twice a day and will continue with fingersticks before meals and at bedtime. Qualifiers: Diabetes mellitus type: type 2 Diabetes mellitus complication status: without complication Diabetes mellitus rodent exterminator insulin use: with rodent exterminator use Qualified Code(s): E11.9 - Type 2 diabetes mellitus without complications ; Z79.4 - residential (current) use of insulin; Z79.4 - intermediate teacher (current) use of insulin; Z79.4 - residential (current) use of insulin; Z79.4 - residential ( current) use of insulin (3) Chronic kidney disease Current Visit: Yes Status: Chronic Assessment and plan: No acute issues will continue with current medications. We will reevaluate labs in 1 week Qualifiers: Chronic kidney disease stage: unspecified stage Qualified Code(s): N18.9 - Chronic kidney disease, unspecified (4) Hypertension Current Visit: Yes Status: Chronic Assessment and plan: Vital signs stable continue with current medications Qualifiers: Hypertension type: essential hypertension Qualified Code(s): I10 - Essential (primary) hypertension - Subjective Interval history: Patient currently complains of moderate low back pain with radicular pain to the left leg, which she states is tolerable with current pain medications and that her pain is actually has decreased over the last 2 days. Patient states that her pain has greatly decreased from her preoperative state. Patient does complain of 2 days of dysuria and last night onset or frequency. Patient states long history of frequent UTIs and has been followed prior to this admission with urology. Patient denies any fever or chills. - Constitutional Vitals: Temp Pulse Resp BP Pulse Ox 97.8 F 81 18 149/82 95 02/18/17 07:15 02/18/17 07:15 02/18/17 07:15 02/18/17 07:15 02/18/17 07:15 General appearance: Present: A&O X 3, no acute distress, obese - Respiratory Respiratory exam: Present: CTAB. Absent: accessory muscle use, rales, rhonchi, wheezes - Cardiovascular Cardiovascular exam: Present: RRR, +S1, +S2. Absent: diastolic murmur, gallop, rubs, systolic murmur - GI/Abdominal GI/Abdominal exam: Present: normal bowel sounds, soft, no peritoneal signs. Absent: distended, tenderness - Incison Comments: Patient's surgical incisions to lower lumbar, which were originally closed with surgical glue, remained dry and intact. No erythema or edema noted. Patient continues to have a small amount of gauze to the right decision, which has been adherent BioGlue. - Neurological Exam Neurological exam: Present: CN II-XII intact, oriented X3, no focal deficits. Absent: pronater drift, facial droop, speech deficit Additional comments: Patient continues complaining radicular symptoms to her left leg. Noted decreased sharp sensation to left lateral leg and on the top of her foot. No limits to range of motion. No clonus. Muscle strength in bilateral legs remain 5/5. No hyperreflexia Internal Medicine: Result - Labs CBC & Chem 7: 02/17/17 05:04 02/16/17 07:10 - ABG Interpretation ABG results: PT/INR, D-dimer PT 11.6 Seconds (9.4-12.1) 02/16/17 07:10 - VTE Documentation of Mechanical Device: Graduated compression elastic hosiery Consult Discharge Plan - Plan Referrals: Tj Elizondo DO [Primary Care Provider] -
[2017-02-18] MEDS: Folic Acid 1 MG TABLET PO SCH (12:49)
[2017-02-18] MEDS: MESALAMINE PO SCH (12:50)
[2017-02-18 15:39] LABS: Bilirubin,Urine Negative (Negative); Blood,Urine Negative (Negative); Clarity,Urine Slightly Cloudy (Clear); Color,Urine Yellow (Yellow); Glucose,Urine (UA) Normal (Normal); Ketones,Urine Negative (Negative); Leukocyte Esterase,Urine Large (Negative); Nitrite,Urine Positive (Negative); Protein,Urine Negative (Neg-Trace); Urobilinogen,Urine Normal (Normal)
[2017-02-18 15:46] LABS: Bacteria,Urine Many per hpf (None-Few); Squamous Epithelial Cell,Urine Few per lpf (None-Few); WBC,Urine 15-30 per hpf (0-3)
[2017-02-18] MEDS: *HR* GlipiZIDE 5 MG TABLET PO SCH (17:31)
[2017-02-19] MEDS: *HR* Morphine Sulfate SR (12 HR) 15 MG TABLET.ER PO SCH (02:40)
[2017-02-19] MEDS: *HR* Enoxaparin 40 MG/0.4 ML SYRINGE SQ SCH (06:46)
[2017-02-19 07:18] VITALS: BP 132/77
[2017-02-19] MEDS: *HR* Metformin 500 MG TABLET PO SCH (08:53)
[2017-02-19] MEDS: Famotidine 20 MG TABLET PO SCH (08:53)
[2017-02-19] MEDS: Gabapentin 300 MG CAPSULE PO SCH (08:53)
[2017-02-19] MEDS: predniSONE 5 MG TABLET PO SCH (08:54)
[2017-02-19] MEDS: Aspirin Enteric Coated 81 MG Tablet PO SCH (08:54)
[2017-02-19] MEDS: sulfaSALAzine 500 MG TABLET PO SCH (08:54)
[2017-02-19] MEDS: *HR* OxyCODONE/APAP 10/325 TABLET PO PRN ×2 (08:54→12:54)
[2017-02-19] MEDS: (Leflunomide [Arava] 20 MG) PO SCH (08:55)
--- NOTE | 2017-02-19 10:42 | Internal Med Progress Note ---
Date of Encounter: 02/19/17 Time of Encounter: 10:40 - Assessment and plan (1) S/P discectomy for herniated nucleus pulposus Current Visit: Yes Status: Acute Assessment and plan: No acute issues. Patient continues to have radicular symptoms to her left hip and leg, but has improved over the last several days. Surgical incision appears to be healing well, but noted gauze still attached to the right incision. We will continue to attempt to remove gauze without disrupting surgical incision. Patient will continue with current therapy. Patient being prepared for discharge to home. (2) Diabetes mellitus Current Visit: Yes Status: Chronic Assessment and plan: Patient glucose has remained greater than 200 on fingersticks with minimal effect after increasing metformin dosing. Will continue with fingersticks before meals and at bedtime. Qualifiers: Diabetes mellitus type: type 2 Diabetes mellitus complication status: without complication Diabetes mellitus ocean transportation intermediary insulin use: without fpc use Qualified Code(s): E11.9 - Type 2 diabetes mellitus without complications (3) Chronic kidney disease Current Visit: Yes Status: Chronic Assessment and plan: No acute issues will continue with current medications. We will reevaluate labs in 1 week Qualifiers: Chronic kidney disease stage: unspecified stage Qualified Code(s): N18.9 - Chronic kidney disease, unspecified (4) Hypertension Current Visit: Yes Status: Chronic Assessment and plan: Vital signs stable continue with current medications Qualifiers: Hypertension type: essential hypertension Qualified Code(s): I10 - Essential (primary) hypertension (5) UTI (urinary tract infection) Current Visit: Yes Status: Acute Assessment and plan: Patient continues with complaints of dysuria and frequency. Analysis was obtained which shows positive for UTI. Patient started on Macrodantin. Patient with long history of frequent chronic UTIs and will be recommended to follow up with her urologist after discharge Qualifiers: Urinary tract infection type: acute cystitis Hematuria presence: without hematuria Qualified Code(s): N30.00 - Acute cystitis without hematuria - Subjective Interval history: Patient prophylaxis and continues with complaints of radicular pain to the left leg which increases during mobility and physical therapy. Patient states that her pain has subsided somewhat. Patient continues with complaints of dysuria and frequency of urination. Urinalysis was received which was positive for UTI. Patient denies any other issues or shortness of breath. - Constitutional Vitals: Temp Pulse Resp BP Pulse Ox 97.9 F 83 14 132/77 93 02/19/17 07:00 02/19/17 07:00 02/19/17 07:00 02/19/17 07:00 02/19/17 07:00 General appearance: Present: A&O X 3, no acute distress, obese - Respiratory Respiratory exam: Present: CTAB. Absent: accessory muscle use, rales, rhonchi, wheezes Additional comments: Lungs are clear to refills and diminished to posterior basilar stark - Cardiovascular Cardiovascular exam: Present: RRR, +S1, +S2. Absent: diastolic murmur, gallop, rubs, systolic murmur - GI/Abdominal GI/Abdominal exam: Present: normal bowel sounds, soft, no peritoneal signs. Absent: distended, tenderness - Extremities Exam Extremities exam: Present: warm, radial pulses palpable and symmetrical. Absent : calf tenderness, cyanotic, pedal edema - Incison Incision: Present: clean and dry, intact Comments: Patient has 2 surgical incisions approximately 4 cm in late or lumbar spine area which were closed with surgical glue. Patient continues to have a small amount of gauze adhered to the right incision. Both incisions appear clean with no erythema or drainage. No edema - Neurological Exam Neurological exam: Present: CN II-XII intact, oriented X3, no focal deficits. Absent: pronater drift, facial droop, speech deficit Additional comments: Patient continues with complaints radicular pain that radiates from her left hip down to her left foot. Patient states a decreased sharp sensation that is along her left lateral leg and goes to the top of her left foot. - Skin Skin exam: Present: dry, intact Internal Medicine: Result - Labs CBC & Chem 7: 02/17/17 05:04 02/16/17 07:10 Labs: Urine 02/18/17 Range/Units 10:54 Urine Color Yellow (Yellow) Urine Clarity Slightly Cloudy A (Clear) Urine pH 6.0 (5.0-8.0) pH Units Ur Specific [place] 1.020 (1.010-1.025) Urine Protein Negative (Neg-Trace) mg/dL Urine Glucose (UA) Normal (Normal) mg/dL - ABG Interpretation ABG results: PT/INR, D-dimer PT 11.6 Seconds (9.4-12.1) 02/16/17 07:10 - VTE Documentation of Mechanical Device: Graduated compression elastic hosiery Consult Discharge Plan - Plan Referrals: Tj Elizondo DO [Primary Care Provider] -
[2017-02-19] MEDS: MESALAMINE PO SCH (12:55)
[2017-02-19] MEDS: Folic Acid 1 MG TABLET PO SCH (12:55)
--- NOTE | 2017-02-19 13:29 | Discharge Summary ---
Date of Encounter: 02/19/17 Time of Encounter: 13:23 - Discharge Diagnosis (1) S/P discectomy for herniated nucleus pulposus Priority: Primary Status: Acute (2) Diabetes mellitus Priority: Secondary Status: Chronic Qualifiers: Diabetes mellitus type: type 2 Diabetes mellitus complication status: without complication Diabetes mellitus long distance operator insulin use: without long distance operator use Qualified Code(s): E11.9 - Type 2 diabetes mellitus without complications (3) Chronic kidney disease Priority: Secondary Status: Chronic Qualifiers: Chronic kidney disease stage: unspecified stage Qualified Code(s): N18.9 - Chronic kidney disease, unspecified (4) Hypertension Priority: Secondary Status: Chronic Qualifiers: Hypertension type: essential hypertension Qualified Code(s): I10 - Essential (primary) hypertension (5) UTI (urinary tract infection) Priority: Secondary Status: Acute Qualifiers: Urinary tract infection type: acute cystitis Hematuria presence: without hematuria Qualified Code(s): N30.00 - Acute cystitis without hematuria - Discharge Medications Home Medications: Allopurinol [Zyloprim 300 MG] 300 mg PO DAILY 03/08/15 [History] Aspirin [Adult Low Dose Aspirin EC] 81 mg PO DAILY 03/08/15 [History] Hydroxychloroquine [Plaquenuil] 200 mg PO BID 03/08/15 [History] Leflunomide [Arava] 20 mg PO DAILY 03/08/15 [History] Lovastatin [Mevacor] 20 mg PO HS 03/08/15 [History] Metoprolol [Lopressor] 50 mg PO DAILY 03/08/15 [History] Omeprazole [PriLOSEC] 20 mg PO DAILY 03/08/15 [History] Ranitidine HCl [Zantac] 150 mg PO BID 03/08/15 [History] glipiZIDE [Glucotrol] 5 mg PO 1700 03/08/15 [History] metFORMIN [Glucophage] 500 mg PO BIDWM 03/08/15 [History] predniSONE [PredniSONE] 5 mg PO DAILY 03/08/15 [History] Folic Acid 1 mg PO 1200 10/02/16 [History] Furosemide [Lasix] 40 mg PO DAILY PRN 10/02/16 [History] Gabapentin [Gralise] 600 mg PO BIDWM 10/02/16 [History] Mesalamine [Lialda] 2.4 gm PO 1200 10/02/16 [History] Sulfasalazine [Azulfidine] 500 mg PO DAILY 10/02/16 [History] Estradiol 0.5 mg PO HS 02/15/17 [History] OxyCODONE/APAP 5/325 [Percocet 5/325 MG] 1 each PO Q4HR PRN 02/15/17 [History] Allergies/Adverse Reactions: 3 Allergy/AdvReac Type Severity Reaction Status Date / Time Amoxicillin [From Augmentin] Allergy Difficulty Verified 02/10/17 10:42 Breathing aspirin [From Fiorinal] Allergy Difficulty Verified 02/10/17 10:42 Breathing butalbital [From Fiorinal] Allergy Difficulty Verified 02/10/17 10:42 Breathing caffeine [From Fiorinal] Allergy Difficulty Verified 02/10/17 10:42 Breathing clavulanic acid Allergy Difficulty Verified 02/10/17 10:42 [From Augmentin] Breathing codeine Allergy Difficulty Verified 02/10/17 10:42 Breathing Erythromycin Base Allergy Difficulty Verified 02/10/17 10:42 Breathing norfloxacin [From Noroxin] Allergy Difficulty Verified 02/10/17 10:42 Breathing Penicillins Allergy Difficulty Verified 02/10/17 10:42 Breathing Quinolones Allergy See Verified 02/10/17 10:42 Comments Tetracycline Allergy Difficulty Verified 02/10/17 10:42 Breathing epinephrine AdvReac Migraine Verified 02/10/17 10:42 Date of admission: 02/15/17 18:07 Primary care physician: Shaq Hills Consults: 02/16/17 07:00 Consult to Occupational Therapy [CONS] Routine Comment: Evaluate, develop and implement POC Reason for Consult: s/p lumbar fusion Consult to Physical Therapy [CONS] Routine Comment: Evaluate, develop and implement POC Reason for Consult: s/p lumbar fusion Consult to Recreational Therapy [CONS] Routine Comment: Evaluate, develop and implement POC Discharging clinician: [place] - Patient Status Disposition: Home, Self-Care Condition: Good Functional capacity at discharge: uses cane/walker Overall status at discharge: patient is progressing back to baseline - Discharge Instructions Follow Up With: Tj Elizondo DO [Primary Care Provider] - - Diet and Activity Activity: ambulate only with your walker Diet: diabetic diet Interval History: . Hospital course: Ms. Camp is a 61 year old female was admitted to facility for rehabilitation due to deconditioning secondary to a recent lumbar laminectomy. Patient had a L4-L5 laminectomy with no acute issues noted during her acute hospitalization. Patient has a long history of lumbar disc disease with this being her second surgery for lumbar disc. Patient was admitted with continued radicular symptoms of pain radiating down from her hip to her left lower leg and had complained of decreased sharp sensation along her left lateral leg and on top of her foot along the L5 dermatome. Patient dissipated and physical therapy and progressed well. Patient currently ambulates with the use of a walker and continues with the walker due to unsteady gait. Patient noted to have very slight weakness on the left lower leg, possibly antalgic. Pain has been controlled with oral medications. Patient did complain of dysuria during her stay and urinalysis. Which showed positive results. Patient will start on Macrodantin. Patient with a history of diabetes, which she takes oral coverage. Glucose fingersticks have been greater than 200 on multiple checks. Patient's metformin was increased during her hospital stay to 1000 twice a day. Time spent discussing smoking cessation with patient: 3 to 10 minutes - Time Spent with Patient Total time spent providing and/or coordinating discharge services: Less than 30 minutes - Constitutional Vitals: Temp Pulse Resp BP Pulse Ox 97.9 F 83 14 132/77 93 02/19/17 07:00 02/19/17 07:00 02/19/17 07:00 02/19/17 07:00 02/19/17 07:00 General appearance: Present: A&O X 3, no acute distress, obese - Head Head exam: Present: atraumatic, normocephalic - Eye Eye exam: Present: PERRL, conjuntiva pink, sclera anicteric Pupils: Present: PERRL - Neck Neck exam general surgery: Present: supple, trachea midline. Absent: lymphadenopathy - Respiratory Respiratory exam: Present: CTAB. Absent: accessory muscle use, rales, rhonchi, wheezes - Cardiovascular Cardiovascular exam: Present: RRR, +S1, +S2. Absent: diastolic murmur, gallop, rubs, systolic murmur - GI/Abdominal GI/Abdominal exam: Present: normal bowel sounds, soft, no peritoneal signs. Absent: distended, tenderness - Extremities Exam Extremities exam: Present: warm, radial pulses palpable and symmetrical. Absent : calf tenderness, cyanotic, pedal edema Additional comments: He complains of slight pain drain left leg left. No limits to range of motion. Describes decreased sensation to left lateral leg area on the top of her left foot. - Neurological Exam Neurological exam: Present: CN II-XII intact, oriented X3, no focal deficits. Absent: pronater drift, facial droop, speech deficit - Skin Skin exam: Present: dry, intact - VTE Documentation of Mechanical Device: Graduated compression elastic hosiery
[2017-02-19] MEDS ORDERED: Nitrofurantoin (BID) 100 MG CAPSULE PO SCH (17:00)
== END 2017-02-19 16:30 | disposition home health service (06) | DRG 560 ==
LOC: INPGRE 18:07
PROVIDERS: ADMIT Internal Medicine; ATTEND Internal Medicine

== ENCOUNTER 2017-05-20 17:45 | Observation (INO) ==
[2017-05-20 18:17] LABS: Bilirubin,Urine Moderate (Negative); Blood,Urine Negative (Negative); Clarity,Urine Clear (Clear); Color,Urine Yellow (Yellow); Glucose,Urine (UA) 100 mg/dL (Normal); Ketones,Urine Negative (Negative); Leukocyte Esterase,Urine Negative (Negative); Nitrite,Urine Negative (Negative); Protein,Urine 30 mg/dL (Neg-Trace); Specific Gravity,Urine >= 1.030 (1.010-1.025); Urobilinogen,Urine Normal (Normal)
[2017-05-20] MEDS ORDERED: 0.9 % Sodium Chloride 1,000 ML IVC ONE (18:26)
[2017-05-20] MEDS ORDERED: Ketorolac 30 MG/ML VIAL IVP ONE (18:26)
--- NOTE | 2017-05-20 18:26 | Emergency Department Note ---
Disposition Clinical Impression: Anemia Qualifiers: Anemia type: unspecified type Qualified Code(s): D64.9 - Anemia, unspecified Back pain Qualifiers: Chronicity: acute Back pain laterality: right Sciatica presence: without sciatica Disposition: Admitted As Inpatient Back Pain HPI - General Chief Complaint: ED Back Pain/Injury Stated Complaint: severe back pain Time Seen by Provider: 05/20/17 18:05 Source: patient Mode of arrival: private vehicle Limitations: no limitations Nursing Notes Reviewed: Yes Vital Signs Reviewed: Yes - History of Present Illness HPI Narrative: Patient presents to the ED complaining of right-sided back and flank pain. States it started 2 days ago was initially intermittent but today has become constant. She states it stabbing in nature and she rates it a 10 out of 10. It is in her right mid back and wraps around towards the front. It does not cross midline or radiate up into her neck or down into her legs. Denies any numbness, tingling or weakness in her legs. No bowel or bladder incontinence. No saddle anesthesia. She reports urinary frequency with small volumes of urine over the past few days but denies any dysuria, hematuria or urgency. She denies any recent falls or back injuries. She has had 3 prior back surgeries, the most recent an L4-L5 fusion performed 02/12/2017. States she had follow-up with her orthopedist 2 days ago and was told that "everything looked good." She does have a remote history of kidney stones with last episode a few years ago. She has required surgery and stents in the past for her stones. She took 2 of her Percocet today that she had left over from her back surgery without significant improvement. She also tried applying salon Julien patch as well without relief. She denies any abdominal pain, nausea, vomiting or diarrhea. No fever or report of chill although she states she did feel hot and sweaty earlier today when the pain was really bad. - Related Data Home Medications Medication Instructions Recorded Confirmed Allopurinol [Zyloprim 300 MG] 300 mg PO DAILY 03/08/15 05/20/17 Aspirin [Adult Low Dose Aspirin EC] 81 mg PO DAILY 03/08/15 05/20/17 Hydroxychloroquine [Plaquenuil] 200 mg PO BID 03/08/15 05/20/17 Leflunomide [Arava] 20 mg PO DAILY 03/08/15 05/20/17 Lovastatin [Mevacor] 20 mg PO HS 03/08/15 05/20/17 Metoprolol [Lopressor] 50 mg PO BID 03/08/15 05/20/17 Omeprazole [PriLOSEC] 20 mg PO DAILY 03/08/15 05/20/17 Ranitidine HCl [Zantac] 150 mg PO BID 03/08/15 05/20/17 glipiZIDE [Glucotrol] 5 mg PO 1700 03/08/15 05/20/17 metFORMIN [Glucophage] 500 mg PO BIDWM 03/08/15 05/20/17 predniSONE [PredniSONE] 5 mg PO DAILY 03/08/15 05/20/17 Folic Acid 1 mg PO 1200 10/02/16 05/20/17 Mesalamine [Lialda] 2.4 gm PO 1200 10/02/16 05/20/17 Sulfasalazine [Azulfidine] 500 mg PO DAILY 10/02/16 05/20/17 Estradiol 0.5 mg PO HS 02/15/17 05/20/17 OxyCODONE/APAP 5/325 [Percocet 1 each PO Q4HR PRN 02/15/17 05/20/17 5/325 MG] Etodolac [Lodine] 400 mg PO BID 02/21/17 05/20/17 Gabapentin [Gralise] 600 mg PO BID 02/21/17 05/20/17 Meloxicam [Mobic] 7.5 mg PO DAILY 05/20/17 05/20/17 Previous Rx's Medication Instructions Recorded Morphine Sulfate SR (12 HR) [MS 15 mg PO Q12H #30 tablet.er 02/19/17 Contin] Allergies Allergy/AdvReac Type Severity Reaction Status Date / Time Amoxicillin [From Augmentin] Allergy Difficulty Verified 05/20/17 21:20 Breathing aspirin [From Fiorinal] Allergy Difficulty Verified 05/20/17 21:20 Breathing butalbital [From Fiorinal] Allergy Difficulty Verified 05/20/17 21:20 Breathing caffeine [From Fiorinal] Allergy Difficulty Verified 05/20/17 21:20 Breathing clavulanic acid Allergy Difficulty Verified 05/20/17 21:20 [From Augmentin] Breathing codeine Allergy Difficulty Verified 05/20/17 21:20 Breathing Erythromycin Base Allergy Difficulty Verified 05/20/17 21:20 Breathing norfloxacin [From Noroxin] Allergy Difficulty Verified 05/20/17 21:20 Breathing Penicillins Allergy Difficulty Verified 05/20/17 21:20 Breathing Quinolones Allergy See Verified 05/20/17 21:20 Comments Tetracycline Allergy Difficulty Verified 05/20/17 21:20 Breathing epinephrine AdvReac Migraine Verified 05/20/17 21:20 Constitutional: Denies: fever, chills, weakness, weight change Eyes: Denies: eye pain, eye discharge, vision change ENT ED: Denies: ear pain, throat pain, dental pain, hearing loss, epistaxis, congestion, dysphagia Cardiovascular: Denies: chest pain, palpitations, dyspnea on exertion, edema, syncope Respiratory: Denies: cough, dyspnea, wheezes, hemoptysis, stridor Gastrointestinal: Denies: abdominal pain, nausea, vomiting, diarrhea, constipation, hematemesis, melena, hematochezia Genitourinary: Reports: as per HPI, frequency. Denies: dysuria, hematuria, discharge Musculoskeletal: Reports: as per HPI, back pain. Denies: neck pain, arthralgia , myalgia Integumentary: Denies: rash, abrasion, lesions Neurological: Denies: headache, weakness, numbness, paresthesias, confusion, abnormal gait, vertigo Psychiatric: Denies: anxiety, depression, suicidal thoughts, homicidal thoughts , auditory hallucinations, visual hallucinations Endocrine: Denies: fatigue Hematological/Lymphatic: Denies: easy bleeding, easy bruising Allergic/Immunologic: Denies: facial swelling, urticaria Past Medical History - Past Medical History Medical history: Reports: arthritis, diabetes, fibromyalgia, hyperlipidemia, hypertension, kidney stones, RA, renal disease, other Surgical history: Reports: cholecystectomy, hysterectomy, other (Patient also has a history of a laminectomy, kidney stones, cholecystectomy, hysterectomy, carpal tunnel) Psychiatric history: Reports: no psych history MEAT PUMPER history: Reports: no MEAT PUMPER history - Social History Smoking Status: Never smoker Smokeless Tobacco Status: No Alcohol use: Reports: none Drug use: Reports: none Physical Exam - General Limitations: no limitations General appearance: alert, in no apparent distress - Head Head exam: atraumatic, normocephalic, normal inspection - Eye Eye exam: Present: normal appearance - ENT ENT exam: normal exam, normal oropharynx, mucous membranes moist - Neck Neck exam: Present: normal inspection, full ROM, trachea midline - Chest Chest inspection: Present: normal inspection, symmetric chest wall rise - Respiratory Respiratory exam: Present: normal lung sounds bilaterally - Cardiovascular Cardiovascular exam: Present: regular rate, normal rhythm, normal heart sounds - Abdominal Exam Abdominal exam: Present: soft, Non-Tender, normal bowel sounds. Absent: tenderness, distention, guarding, rebound, rigidity - Extremities Exam Extremities exam: Present: normal inspection, full ROM. Absent: tenderness, pedal edema - Back Exam Back exam: Present: normal inspection, full ROM, tenderness (R lower thoracic area and flank). Absent: CVA tenderness (R), CVA tenderness (L), vertebral tenderness, sciatic notch tenderness (R), sciatic notch tenderness (L), straight leg raise (R), straight leg raise (L) - Neurological Exam Neurological exam: Present: alert, oriented X3 - Psychiatric Psychiatric exam: Present: normal affect, normal mood - Skin Skin exam: Present: warm, dry, intact, normal color Course Course Narrative: She presents to the ED with right-sided back and flank pain that has been increasing over the past few days as well as some urinary frequency with small volumes of urine. On arrival she is hemodynamically stable and nontoxic in appearance. Given her symptoms and history of stones or is concern for possible recurrent kidney stone. Will give Toradol for pain, obtain labs and CT scan. Pain is not in the vertebral area and she has no associated neurologic symptoms to raise concern for spinal pathology or any complications from her recent surgery. - Reevaluation(s) Reevaluation #2: CT scan did not show any kidney stone or other cause for patient's pain. She had lumbar and thoracic x-rays performed one month ago by her orthopedist that showed degenerative changes and good hardware placement. At this time the cause of patient's pain is unclear although it could be musculoskeletal in nature given its location. She had some relief with Toradol intially but the pain has now increased again. Will give Percocet. Urinalysis did not show any blood. CBC however shows acute on chronic anemia with H&H of 7 and 26, down from 9 and32 one month ago. Patient has apparent history of anemia and required a blood transfusion last September. States they never found a cause for her anemia that she has been on iron supplements in the past. She has a history of Crohn's disease but has never had any GI bleeding. She denies any blood in her urine or stool recently. She does on further questioning admits some fatigue and occasional shortness of breath. She would benefit from a transfusion at this time as well as continued medication for her back pain. Discussed with patient admission for transfusion and she is agreeable. Will contact the hospitalist at this time to discuss admission. Time: 20:31 Reevaluation #3: I spoke to the hospitalist on-call, Dr. More, who has agreed to admit the patient for transfusion of 2 units of PRBCs. Vital Signs Temperature 97.7 F 05/20/17 17:52 Pulse Rate 107 05/20/17 17:52 Respiratory Rate 18 05/20/17 17:52 Blood Pressure 144/66 05/20/17 17:52 O2 Sat by Pulse Oximetry 98 05/20/17 17:52 Temperature 98.0 F 05/21/17 02:12 Pulse Rate 84 05/21/17 02:12 Respiratory Rate 15 05/21/17 02:12 Blood Pressure 147/71 05/21/17 02:12 O2 Sat by Pulse Oximetry 97 05/21/17 02:12 Oxygen Delivery Oxygen Delivery Room Air Back Pain/Injury - Differential Diagnosis Differential Diagnosis: Likely: lumbar radiculopathy, renal colic, thoracic back pain. Unlikely: sciatica, strain of lumbar region - Medical Records Medical records reviewed: Yes I reviewed the patient's medical records. - Lab Data Lab results reviewed: Yes I reviewed the patient's lab results. Result diagrams: 05/20/17 18:48 05/20/17 18:48 Lab Results 05/20/17 05/20/17 05/20/17 Range/Units 18:12 18:48 18:48 WBC 7.9 (4.3-11.1) K/mcL RBC 3.31 L (3.82-4.97) M/mcL Hgb 7.7 L (11.5-15.4) g/dL Hct 26.4 L (35.3-44.9) % MCV 79.8 L (83.0-100.0) fL MCH 23.3 L (28.0-33.3) pg MCHC 29.2 L (31.6-35.5) g/dL RDW 16.5 H (11.5-14.5) % Plt Count 382 (140-400) K/mcL MPV 8.9 L (9.4-12.4) fL Immature Gran % 0.4 (0-4) % Seg Neutrophils % 71.9 % Lymphocytes % 17.6 % Monocytes % 8.7 % Eosinophils % 0.8 % Basophils % 0.6 % Neutrophils # 5.7 (1.6-8.9) K/mcL Lymphocytes # 1.4 (0.6-4.6) K/mcL Monocytes # 0.7 (0.0-1.3) K/mcL Eosinophils # 0.1 (0.0-0.6) K/mcL Basophils # 0.1 (0.0-0.2) K/mcL Sodium 133 L (136-145) mEq/L Potassium 4.4 (3.5-5.1) mEq/L Chloride 103 (98-107) mEq/L Carbon Dioxide 22 L (23-29) mEq/L BUN 18 (8-23) mg/dL Creatinine 0.85 (0.60-1.20) mg/dL Est GFR ( Amer) > 60 (> 60) Est GFR (Non-Af Amer) > 60 (> 60) BUN/Creatinine Ratio 21 (6-26) Glucose 239 H (70-105) mg/dL Calculated Osmolality 286 (280-300) Calcium 9.0 (8.6-10.3) mg/dL Urine Color Yellow (Yellow) Urine Clarity Clear (Clear) Urine pH 5.0 (5.0-8.0) pH Units Ur Specific [place] >= 1.030 H (1.010-1.025) Urine Protein 30 H (Neg-Trace) mg/dL Urine Glucose (UA) 100 H (Normal) mg/dL Urine Ketones Negative (Negative) mg/dL Urine Blood Negative (Negative) Urine Nitrite Negative (Negative) Urine Bilirubin Moderate H (Negative) Urine Urobilinogen Normal (Normal) mg/dL Ur Leukocyte Esterase Negative (Negative) Urine Microscopic RBC 0-3 (0-3) per hpf Urine Microscopic WBC 3-5 H (0-3) per hpf Ur Squamous Epith Cells Many H (None-Few) per lpf Calcium Oxalate Crystal Present Urine Bacteria Many H (None-Few) per hpf Hyaline Casts Few (None-Few) per lpf Ur Culture Indicated? NO (NO) Blood Type Antibody Screen Crossmatch 05/20/17 Range/Units 21:23 WBC (4.3-11.1) K/mcL RBC (3.82-4.97) M/mcL Hgb (11.5-15.4) g/dL Hct (35.3-44.9) % MCV (83.0-100.0) fL MCH (28.0-33.3) pg MCHC (31.6-35.5) g/dL RDW (11.5-14.5) % Plt Count (140-400) K/mcL MPV (9.4-12.4) fL Immature Gran % (0-4) % Seg Neutrophils % % Lymphocytes % % Monocytes % % Eosinophils % % Basophils % % Neutrophils # (1.6-8.9) K/mcL Lymphocytes # (0.6-4.6) K/mcL Monocytes # (0.0-1.3) K/mcL Eosinophils # (0.0-0.6) K/mcL Basophils # (0.0-0.2) K/mcL Sodium (136-145) mEq/L Potassium (3.5-5.1) mEq/L Chloride (98-107) mEq/L Carbon Dioxide (23-29) mEq/L BUN (8-23) mg/dL Creatinine (0.60-1.20) mg/dL Est GFR ( Amer) (> 60) Est GFR (Non-Af Amer) (> 60) BUN/Creatinine Ratio (6-26) Glucose (70-105) mg/dL Calculated Osmolality (280-300) Calcium (8.6-10.3) mg/dL Urine Color (Yellow) Urine Clarity (Clear) Urine pH (5.0-8.0) pH Units Ur Specific [place] (1.010-1.025) Urine Protein (Neg-Trace) mg/dL Urine Glucose (UA) (Normal) mg/dL Urine Ketones (Negative) mg/dL Urine Blood (Negative) Urine Nitrite (Negative) Urine Bilirubin (Negative) Urine Urobilinogen (Normal) mg/dL Ur Leukocyte Esterase (Negative) Urine Microscopic RBC (0-3) per hpf Urine Microscopic WBC (0-3) per hpf Ur Squamous Epith Cells (None-Few) per lpf Calcium Oxalate Crystal Urine Bacteria (None-Few) per hpf Hyaline Casts (None-Few) per lpf Ur Culture Indicated? (NO) Blood Type A POSITIVE Antibody Screen NEGATIVE Crossmatch See Detail - Radiology Data Radiology results reviewed: Yes I reviewed the patient's radiology results. ITS Impressions Abdomen/Pelvis CT 05/20/17 18:26 IMPRESSION: Negative noncontrast study. D/ / Bita Kaiser Cha, MD / Bita Kaiser Cha, MD Interpreting Provider: Bita Kaiser Cha, MD
[2017-05-20 18:28] LABS: RBC,Urine 0-3 per hpf (0-3); Squamous Epithelial Cell,Urine Many per lpf (None-Few)
[2017-05-20 18:29] LABS: Bacteria,Urine Many per hpf (None-Few); Calcium Oxalate Crystals,Urine Present; Hyaline Casts,Urine Few per lpf (None-Few)
[2017-05-20 18:57] LABS: Basophils # 0.1 K/mcL (0.0-0.2); Basophils % 0.6 %; Eosinophils # 0.1 K/mcL (0.0-0.6); Eosinophils % 0.8 %; Hematocrit 26.4 % (35.3-44.9); Hemoglobin 7.7 g/dL (11.5-15.4); Immature Granulocytes % 0.4 % (0-4); Lymphocytes # 1.4 K/mcL (0.6-4.6); Lymphocytes % 17.6 %; Mean Corpuscular HGB Conc 29.2 g/dL (31.6-35.5); Mean Corpuscular Hemoglobin 23.3 pg (28.0-33.3); Mean Corpuscular Volume 79.8 fL (83.0-100.0); Mean Platelet Volume 8.9 fL (9.4-12.4); Monocytes # 0.7 K/mcL (0.0-1.3); Monocytes % 8.7 %; Neutrophils # 5.7 K/mcL (1.6-8.9); Platelet Count 382 K/mcL (140-400); Red Blood Count 3.31 M/mcL (3.82-4.97); Red Cell Distribution Width 16.5 % (11.5-14.5); Segmented Neutrophils % 71.9 %
[2017-05-20 19:08] LABS: BUN/Creatinine Ratio 21 (6-26); Blood Urea Nitrogen 18 mg/dL (8-23); Carbon Dioxide 22 mEq/L (23-29); Chloride 103 mEq/L (98-107); Glucose 239 mg/dL (70-105); Osmolality,Calculated 286 (280-300); Potassium 4.4 mEq/L (3.5-5.1); Sodium 133 mEq/L (136-145); eGFR For African Americans > 60 (> 60); eGFR For Non-African Americans > 60 (> 60)
[2017-05-20] MEDS ORDERED: *HR* OxyCODONE/APAP 5/325 TABLET PO ONE (20:20)
[2017-05-20] MEDS ORDERED: Naloxone 0.4 MG/ML INJ IVP PRN (21:12)
[2017-05-20] MEDS ORDERED: *HR* OxyCODONE/APAP 5/325 TABLET PO PRN (21:26)
[2017-05-20] MEDS ORDERED: 0.9 % Sodium Chloride 500 ML ONE (23:14)
[2017-05-21] MEDS: *HR* OxyCODONE/APAP 5/325 TABLET PO PRN ×4 (00:13→15:18)
[2017-05-21] MEDS: *HR* Morphine Sulfate SR (12 HR) 15 MG TABLET.ER PO SCH ×2 (00:17→08:05)
[2017-05-21 07:19] LABS: Basophils # 0.1 K/mcL (0.0-0.2); Basophils % 0.9 %; Eosinophils # 0.2 K/mcL (0.0-0.6); Eosinophils % 1.9 %; Hematocrit 30.3 % (35.3-44.9); Hemoglobin 9.1 g/dL (11.5-15.4); Immature Granulocytes % 0.2 % (0-4); Lymphocytes # 2.9 K/mcL (0.6-4.6); Lymphocytes % 35.3 %; Mean Corpuscular Hemoglobin 24.3 pg (28.0-33.3); Mean Corpuscular Volume 80.8 fL (83.0-100.0); Monocytes # 0.9 K/mcL (0.0-1.3); Monocytes % 11.5 %; Neutrophils # 4.1 K/mcL (1.6-8.9); Platelet Count 338 K/mcL (140-400); Red Blood Count 3.75 M/mcL (3.82-4.97); Red Cell Distribution Width 16.4 % (11.5-14.5); Segmented Neutrophils % 50.2 %
[2017-05-21] MEDS: *HR* Metformin 500 MG TABLET PO SCH ×2 (08:13→17:41)
[2017-05-21] MEDS: Famotidine 20 MG TABLET PO SCH ×2 (08:13→15:17)
[2017-05-21] MEDS ORDERED: predniSONE 5 MG TABLET PO SCH (09:00)
[2017-05-21] MEDS ORDERED: Gabapentin 300 MG CAPSULE PO SCH (09:00)
[2017-05-21] MEDS ORDERED: Leflunomide [Arava] 20 MG PO SCH (09:00)
[2017-05-21] MEDS ORDERED: MESALAMINE 2.4 GM PO SCH (12:00)
[2017-05-21] MEDS ORDERED: Folic Acid 1 MG TABLET PO SCH (12:00)
--- NOTE | 2017-05-21 13:45 | Internal Med History&Physical ---
Date of Encounter: 05/21/17 Time of Encounter: 13:36 Assessment and Plan (1) Back pain Current visit: Yes Status: Acute Patient with complaints of pain to lower thoracic area, which she states as a dull ache with intermittent increases in severity secondary to mobilization. Patient states that her pain has been present for the past 2 weeks with minimal relief after taking pain medications and applying heat. Recent has followed up with orthopedic surgeon with resolving current imagery showing no acute process. We will continue with current treatment. Patient surgeon Dr. Ramos was updated on patient's current status per Dr. More with recommendations received. Patient being scheduled for a MRI of the thoracic spine with and without contrast and will follow-up with Dr. Ramos for further evaluation and treatment. No other focal neurological deficits noted during exam. Qualifiers: Back pain location: low back pain Chronicity: acute Back pain laterality : right Sciatica presence: without sciatica Qualified Code(s): M54.5 - Low back pain (2) Anemia Current visit: Yes Status: Acute Patient was admitted with hemoglobin of 7.7. Patient with a long history of chronic anemia and currently showed positive for Hemoccult stool. No signs of phil bleeding noted. Patient received 2 units of packed red blood cells and current hemoglobin is greater than 9. Current plan is for patient to be discharged after receiving her MRI and is to follow-up with her PCP, Dr. Pierre in 1 week for further labs, a evaluation and treatment. Qualifiers: Anemia type: unspecified type Qualified Code(s): D64.9 - Anemia, unspecified (3) Hypertension Current visit: No Status: Chronic No acute issues during this admission. Vital signs been stable. We will continue with current medications Qualifiers: Hypertension type: essential hypertension Qualified Code(s): I10 - Essential (primary) hypertension Internal Medicine - H&P: HPI Chief complaint: low back pain Admitted From: Home Plans for Post Hospital Care: Home History of present illness: Ms. Camp is a 61 year old female presented to the ED complaining of right-sided back and flank pain. States it started 2 days ago was initially intermittent but today has become constant. She states it stabbing in nature and she rates it a 10 out of 10. It is in her right mid back and wraps around towards the front. It does not cross midline or radiate up into her neck or down into her legs. Denies any numbness, tingling or weakness in her legs. No bowel or bladder incontinence. No saddle anesthesia. She reports urinary frequency with small volumes of urine over the past few days but denies any dysuria, hematuria or urgency. She denies any recent falls or back injuries. She has had 3 prior back surgeries, the most recent an L4-L5 fusion performed 2016. States she had follow-up with her orthopedist 2 days ago and was told that "everything looked good." She does have a remote history of kidney stones with last episode a few years ago. She has required surgery and stents in the past for her stones. CT scan of abdomen did not show any kidney stone or other cause for patient's pain. She had lumbar and thoracic x-rays performed one month ago by her orthopedist that showed degenerative changes and good hardware placement. At this time the cause of patient's pain is unclear although it could be musculoskeletal in nature given its location. CBC however shows acute on chronic anemia with H&H of 7 and 26, down from 9 and32 one month ago. Patient has apparent history of anemia and required a blood transfusion last September. States they never found a cause for her anemia that she has been on iron supplements in the past. She has a history of Crohn' s disease but has never had any GI bleeding. She was asymptomatic at that time but was admitted for a transfusion Patient currently continues with complaints of pain to the lower thoracic area which she states is a constant dull pain with intermittent increases when mobilizing. Patient denies any shortness of breath or discomforts. Past Med Surg Social Fam HX - Past Medical History Medical history: arthritis, diabetes, fibromyalgia, hyperlipidemia, hypertension , kidney stones, RA, renal disease, other Psychiatric history: no psych history - Past Surgical History Surgical History: cholecystectomy, hysterectomy, other (Patient also has a history of a laminectomy, kidney stones, cholecystectomy, hysterectomy, carpal tunnel) - Social History Smoking Status: Never smoker Smokeless Tobacco Status: No Alcohol use: none Drug use: none - Family History Father Adopted: Ada: [employer] Family Member Ethnicity: Non- Living Status: Age at : 56 Cause of : stroke Hx Family Cardiac Disorders: No Hx Family Respiratory Disorders: Yes Hx Family Cancer: No Hx Family GI Disorders: Yes Hx Family Genitourinary Disorders: Yes Hx Family Endocrine Disorder: Yes Hx Family Musculoskeletal Disorders: No Hx Family Neuromuscular Disorders: No Hx Family Neurologic Disorders: No Hx Family HEENT Disorders: No Hx Family Autoimmune Disorders: No Hx Family Reproductive Disorders: No Hx Family Psychosocial Disorders: No Hx Family Medical Disorders: No Mother Adopted: Ada: amina pugh Age: 83 Family Member Ethnicity: Non- Living Status: Still Living Hx Family Cardiac Disorders: No Hx Family Respiratory Disorders: Yes Hx Family Cancer: No Hx Family GI Disorders: Yes Hx Family Genitourinary Disorders: Yes Hx Family Endocrine Disorder: Yes Hx Family Musculoskeletal Disorders: No Hx Family Neuromuscular Disorders: No Hx Family Neurologic Disorders: No Hx Family HEENT Disorders: No Hx Family Autoimmune Disorders: No Hx Family Reproductive Disorders: No Hx Family Psychosocial Disorders: No Hx Family Medical Disorders: No Internal Medicine - H&P: Meds Allopurinol [Zyloprim 300 MG] 300 mg PO DAILY 03/08/15 [History] Aspirin [Adult Low Dose Aspirin EC] 81 mg PO DAILY 03/08/15 [History] Hydroxychloroquine [Plaquenuil] 200 mg PO BID 03/08/15 [History] Leflunomide [Arava] 20 mg PO DAILY 03/08/15 [History] Lovastatin [Mevacor] 20 mg PO HS 03/08/15 [History] Metoprolol [Lopressor] 50 mg PO BID 03/08/15 [History] Omeprazole [PriLOSEC] 20 mg PO DAILY 03/08/15 [History] Ranitidine HCl [Zantac] 150 mg PO BID 03/08/15 [History] glipiZIDE [Glucotrol] 5 mg PO 1700 03/08/15 [History] metFORMIN [Glucophage] 500 mg PO BIDWM 03/08/15 [History] predniSONE [PredniSONE] 5 mg PO DAILY 03/08/15 [History] Folic Acid 1 mg PO 1200 10/02/16 [History] Mesalamine [Lialda] 2.4 gm PO 1200 10/02/16 [History] Sulfasalazine [Azulfidine] 500 mg PO DAILY 10/02/16 [History] Estradiol 0.5 mg PO HS 02/15/17 [History] OxyCODONE/APAP 5/325 [Percocet 5/325 MG] 1 each PO Q4HR PRN 02/15/17 [History] Morphine Sulfate SR (12 HR) [MS Contin] 15 mg PO Q12H #30 tablet.er 02/19/17 [Rx ] Etodolac [Lodine] 400 mg PO BID 02/21/17 [History] Gabapentin [Gralise] 600 mg PO BID 02/21/17 [History] Meloxicam [Mobic] 7.5 mg PO DAILY 05/20/17 [History] 3 Allergy/AdvReac Type Severity Reaction Status Date / Time Amoxicillin [From Augmentin] Allergy Difficulty Verified 05/20/17 21:20 Breathing aspirin [From Fiorinal] Allergy Difficulty Verified 05/20/17 21:20 Breathing butalbital [From Fiorinal] Allergy Difficulty Verified 05/20/17 21:20 Breathing caffeine [From Fiorinal] Allergy Difficulty Verified 05/20/17 21:20 Breathing clavulanic acid Allergy Difficulty Verified 05/20/17 21:20 [From Augmentin] Breathing codeine Allergy Difficulty Verified 05/20/17 21:20 Breathing Erythromycin Base Allergy Difficulty Verified 05/20/17 21:20 Breathing norfloxacin [From Noroxin] Allergy Difficulty Verified 05/20/17 21:20 Breathing Penicillins Allergy Difficulty Verified 05/20/17 21:20 Breathing Quinolones Allergy See Verified 05/20/17 21:20 Comments Tetracycline Allergy Difficulty Verified 05/20/17 21:20 Breathing epinephrine AdvReac Migraine Verified 05/20/17 21:20 All Systems PM: A 10-system review of systems was performed and is negative for pertinent findings except as documented above in the HPI. - Constitutional Constitutional: no chills, no fever(s), no night sweats - EENT Eyes: no change in vision, no discharge, no pain, no photophobia Ears: no ear discharge, no ear pain, no tinnitus Nose, mouth and throat: no dysphagia, no nasal discharge, no neck pain, no sore throat - Cardiovascular Cardiovascular ROS IM: as per HPI, no chest pain, no diaphoresis, no dyspnea, no lightheadedness, no palpitations, no syncope - Respiratory Respiratory: as per HPI, no cough, no dyspnea, no wheezing, no excessive phlegm production - Gastrointestinal Gastrointestinal: as per HPI, no abdominal pain, no diarrhea, no hematemesis, no hematochezia, no melena, no nausea, no vomiting - Genitourinary Genitourinary: as per HPI, no change in urinary stream, no dysuria, no flank pain, no hematuria - Musculoskeletal Musculoskeletal ROS IM: as per HPI, no numbness, no tingling - Integumentary Integumentary IM: no rash, no unusual bruising - Neurological Neurological ROS: no confusion, no convulsions, no focal weakness, no numbness, no tingling, no tremor(s) - Hematologic/Lymphatic Hematologic/Lymphatic: no easy bruising - Constitutional Vitals: Temp Pulse Resp BP Pulse Ox 97.8 F 75 16 147/86 96 05/21/17 11:43 05/21/17 11:43 05/21/17 11:43 05/21/17 11:43 05/21/17 11:43 General appearance: Present: A&O X 3, pleasant - Head Head exam: Present: atraumatic, normocephalic - Eye Eye exam: Present: PERRL, conjuntiva pink, sclera anicteric Pupils: Present: PERRL - Neck Neck exam general surgery: Present: full ROM, supple, trachea midline. Absent: lymphadenopathy Additional comments: No stillness or rigidity - Respiratory Respiratory exam: Present: CTAB. Absent: accessory muscle use, rales, rhonchi, wheezes - Cardiovascular Cardiovascular exam: Present: RRR, +S1, +S2. Absent: diastolic murmur, gallop, rubs, systolic murmur - GI/Abdominal GI/Abdominal exam: Present: normal bowel sounds, soft, no peritoneal signs. Absent: distended, tenderness - Extremities Exam Extremities exam: Present: warm, radial pulses palpable and symmetrical. Absent : calf tenderness, cyanotic, pedal edema - Neurological Exam Neurological exam: Present: CN II-XII intact, oriented X3, no focal deficits. Absent: pronater drift, facial droop, speech deficit Additional comments: Previous surgical incision site appears well-healed to lower lumbar. No deformities, injuries or step-offs noted during inspection of spine. Patient with complaints of slight tenderness to lower thoracic spine area with radiation to right chest flank. No other neurological focal deficits noted on exam. Leg lift exam was negative. No hyperreflexia or clonus. - Skin Skin exam: Present: dry, intact Internal Med - H&P Results - Labs CBC & Chem 7: 05/21/17 06:45 05/20/17 18:48 Labs: Short CBC 05/21/17 Range/Units 06:45 WBC 8.1 (4.3-11.1) K/mcL Hgb 9.1 L (11.5-15.4) g/dL Hct 30.3 L (35.3-44.9) % Plt Count 338 (140-400) K/mcL Neutrophils # 4.1 (1.6-8.9) K/mcL - VTE Reasons for not Prescribing Prophylaxis: Treatment not Indicated - Low risk for VTE
--- NOTE | 2017-05-21 14:01 | Discharge Summary ---
- NOTES TO OUTPATIENT PROVIDER Notes to Outpatient Provider: Patient was admitted for complaints of thoracic back pain and at time of admission was noted to have a hemoglobin of 7.2. Patient received 2 units of packed red blood cells with posttransfusion hemoglobin greater than 9. Patient was positive for Hemoccult blood. Orders not resulted at time of discharge: Pending orders 05/21/17 12:47 MR thoracic spine wo/w con [MR] Routine Date of Encounter: 05/21/17 Time of Encounter: 13:58 - Discharge Diagnosis (1) Back pain Priority: Primary Status: Acute Comments: Patient has had a dull pain to her lower thoracic area that becomes severe during mobilization. Patient has had a recent lumbar laminectomy by Dr. Ramos and has been in follow-up with him. Patient had a abdominal CAT scan during this admission which showed no acute issues. Patient received MRI with and without contrast of thoracic spine which will be taken to Dr. Ramos for further evaluation. Qualifiers: Back pain location: low back pain Chronicity: acute Back pain laterality : right Sciatica presence: without sciatica Qualified Code(s): M54.5 - Low back pain (2) Anemia Priority: Secondary Status: Acute Comments: Patient's hemoglobin was 7.7 current presentation in emergency department. Patient was transfused with 2 units packed red blood cells and currently his hemoglobin is greater than 9. Patient was positive for occult stool. Patient is to follow-up with her PCP in one week for a follow-up CBC. Qualifiers: Anemia type: unspecified type Qualified Code(s): D64.9 - Anemia, unspecified (3) Hypertension Priority: Secondary Status: Chronic Comments: No acute issues during this hospitalization. Patient is a continue with current medications Qualifiers: Hypertension type: essential hypertension Qualified Code(s): I10 - Essential (primary) hypertension Hospital course: Ms. Camp is a 61 year old female who presented to the emergency firm with complaints of lower thoracic pain that been present for the past 2 weeks and was progressively worsening. Patient's pain was a dull pain with intermittent severity secondary to immobilization. Patient has had recent follow-up with her surgeon, Dr. Ramos who performed Pool laminectomy during the past several weeks. Chemistry taken by his office showed no acute issues. Patient had a CT scan of the abdomen was showed no acute issues. During her presentation to the emergency department her hemoglobin was shown to be 7.7 and she was admitted overnight for pain control and for transfusion of packed red blood cells. Patient's hemoglobin after transfusion of 2 units of packed blood cells was greater than 9. Patient's thoracic pain was unresolved. Dr. More called Dr. Ramos and spoke to him at length about patient's current status with recommendations received for patient to have a MRI of the thoracic spine with and without contrast. Patient has a history of a thoracic arachnoid cyst. Patient being discharged to home after MRI obtained and reviewed. Discharge discussed with: patient - Time Spent with Patient Total time spent providing and/or coordinating discharge services: Less than 30 minutes - Discharge Medications Home Medications: Allopurinol [Zyloprim 300 MG] 300 mg PO DAILY 03/08/15 [History] Aspirin [Adult Low Dose Aspirin EC] 81 mg PO DAILY 03/08/15 [History] Hydroxychloroquine [Plaquenuil] 200 mg PO BID 03/08/15 [History] Leflunomide [Arava] 20 mg PO DAILY 03/08/15 [History] Lovastatin [Mevacor] 20 mg PO HS 03/08/15 [History] Metoprolol [Lopressor] 50 mg PO BID 03/08/15 [History] Omeprazole [PriLOSEC] 20 mg PO DAILY 03/08/15 [History] Ranitidine HCl [Zantac] 150 mg PO BID 03/08/15 [History] glipiZIDE [Glucotrol] 5 mg PO 1700 03/08/15 [History] metFORMIN [Glucophage] 500 mg PO BIDWM 03/08/15 [History] predniSONE [PredniSONE] 5 mg PO DAILY 03/08/15 [History] Folic Acid 1 mg PO 1200 10/02/16 [History] Mesalamine [Lialda] 2.4 gm PO 1200 10/02/16 [History] Sulfasalazine [Azulfidine] 500 mg PO DAILY 10/02/16 [History] Estradiol 0.5 mg PO HS 02/15/17 [History] OxyCODONE/APAP 5/325 [Percocet 5/325 MG] 1 each PO Q4HR PRN 02/15/17 [History] Morphine Sulfate SR (12 HR) [MS Contin] 15 mg PO Q12H #30 tablet.er 02/19/17 [Rx ] Etodolac [Lodine] 400 mg PO BID 02/21/17 [History] Gabapentin [Gralise] 600 mg PO BID 02/21/17 [History] Meloxicam [Mobic] 7.5 mg PO DAILY 05/20/17 [History] Allergies/Adverse Reactions: 3 Allergy/AdvReac Type Severity Reaction Status Date / Time Amoxicillin [From Augmentin] Allergy Difficulty Verified 05/20/17 21:20 Breathing aspirin [From Fiorinal] Allergy Difficulty Verified 05/20/17 21:20 Breathing butalbital [From Fiorinal] Allergy Difficulty Verified 05/20/17 21:20 Breathing caffeine [From Fiorinal] Allergy Difficulty Verified 05/20/17 21:20 Breathing clavulanic acid Allergy Difficulty Verified 05/20/17 21:20 [From Augmentin] Breathing codeine Allergy Difficulty Verified 05/20/17 21:20 Breathing Erythromycin Base Allergy Difficulty Verified 05/20/17 21:20 Breathing norfloxacin [From Noroxin] Allergy Difficulty Verified 05/20/17 21:20 Breathing Penicillins Allergy Difficulty Verified 05/20/17 21:20 Breathing Quinolones Allergy See Verified 05/20/17 21:20 Comments Tetracycline Allergy Difficulty Verified 05/20/17 21:20 Breathing epinephrine AdvReac Migraine Verified 05/20/17 21:20 Date of admission: 05/20/17 21:32 Primary care physician: Shaq Hills Discharging clinician: Tino More Anticipated date of discharge: 05/21/17 - Constitutional Vitals: Temp Pulse Resp BP Pulse Ox 97.8 F 75 16 147/86 96 05/21/17 11:43 05/21/17 11:43 05/21/17 11:43 05/21/17 11:43 05/21/17 11:43 General appearance: Present: A&O X 3, pleasant - Head Head exam: Present: atraumatic, normocephalic - Eye Eye exam: Present: PERRL, conjuntiva pink, sclera anicteric Pupils: Present: PERRL - Neck Neck exam general surgery: Present: supple, trachea midline. Absent: lymphadenopathy - Respiratory Respiratory exam: Present: CTAB. Absent: accessory muscle use, rales, rhonchi, wheezes - Cardiovascular Cardiovascular exam: Present: RRR, +S1, +S2. Absent: diastolic murmur, gallop, rubs, systolic murmur - GI/Abdominal GI/Abdominal exam: Present: normal bowel sounds, soft, no peritoneal signs. Absent: distended, tenderness - Extremities Exam Extremities exam: Present: warm, radial pulses palpable and symmetrical. Absent : calf tenderness, cyanotic, pedal edema - Neurological Exam Neurological exam: Present: CN II-XII intact, oriented X3, no focal deficits. Absent: pronater drift, facial droop, speech deficit Additional comments: Spine was inspected with no step-offs or deformities noted. Patient to have slight tenderness to lower thoracic area with pain radiating to right chest flank. No neurological focal deficits noted during exam. Leg lift exam was negative. No clonus or hyperreflexia. Recent surgical lumbar laminectomy incisions were well-healed and appear healthy - Skin Skin exam: Present: dry, intact - Patient Status Disposition: Home, Self-Care Condition: Good Functional capacity at discharge: independent ambulation Overall status at discharge: patient is progressing back to baseline - Discharge Instructions Follow Up With: jT Elizondo DO [Primary Care Provider] - - Diet and Activity Activity: increase activity as tolerated, resume usual activities as tolerated Diet: advance to your usual diet - VTE Reasons for not Prescribing Prophylaxis: Treatment not Indicated - Low risk for VTE
[2017-05-21 16:50] VITALS: BP 162/80
[2017-05-21] MEDS ORDERED: *HR* GlipiZIDE 5 MG TABLET PO SCH (17:00)
== END 2017-05-21 18:00 | disposition home or self-care (01) ==
LOC: INPGRE 17:45 → EMEROOGRE 17:45 → INPGRE 22:08

== ENCOUNTER 2019-03-02 16:52 | Observation (INO) ==
[2019-03-02] MEDS ORDERED: *HR* HYDROmorphone (PF) 1 MG/ML SYRINGE IM ONE (17:25)
[2019-03-02] MEDS ORDERED: Ondansetron ODT 4 MG TAB.RAPDIS SL ONE (17:26)
[2019-03-02] MEDS ORDERED: Dexamethasone 4 MG/ML VIAL IVP ONE (17:58)
[2019-03-02] MEDS ORDERED: *HR* HYDROmorphone (PF) 1 MG/ML SYRINGE IVP ONE (18:32)
[2019-03-02 19:05] LABS: Basophils % 0.7 %; Hematocrit 36.2 % (35.3-44.9); Hemoglobin 11.5 g/dL (11.5-15.4); Immature Granulocytes % 1.2 % (0-4); Lymphocytes # 0.7 K/mcL (0.6-4.6); Lymphocytes % 11.5 %; Mean Corpuscular HGB Conc 31.8 g/dL (31.6-35.5); Mean Corpuscular Hemoglobin 28.8 pg (28.0-33.3); Mean Corpuscular Volume 90.7 fL (83.0-100.0); Mean Platelet Volume 9.8 fL (9.4-12.4); Monocytes # 1.1 K/mcL (0.0-1.3); Monocytes % 17.9 %; Neutrophils # 4.1 K/mcL (1.6-8.9); Platelet Count 197 K/mcL (140-400); Red Blood Count 3.99 M/mcL (3.82-4.97); Red Cell Distribution Width 14.5 % (11.5-14.5); Segmented Neutrophils % 68.7 %
[2019-03-02 19:15] LABS: Bilirubin,Urine Negative (Negative); Blood,Urine Trace-intact (Negative); Clarity,Urine Clear (Clear); Color,Urine Yellow (Yellow); Glucose,Urine (UA) Normal (Normal); Ketones,Urine Negative (Negative); Leukocyte Esterase,Urine Small (Negative); Nitrite,Urine Positive (Negative); Protein,Urine Negative (Neg-Trace); Specific Gravity,Urine 1.015 (1.010-1.025); Urobilinogen,Urine Normal (Normal)
[2019-03-02 19:20] LABS: Bacteria,Urine Many per hpf (None-Few); RBC,Urine 0-3 per hpf (0-3); Squamous Epithelial Cell,Urine Moderate per lpf (None-Few)
[2019-03-02] MEDS ORDERED: Sulfamethoxazole/Trimeth DS 1 EACH TABLET PO ONE (19:22)
[2019-03-02 19:24] LABS: Alanine Aminotransferase 43 Units/L (7-52); Albumin 3.5 g/dL (3.5-5.7); Albumin/Globulin Ratio 1.7 (1.1-2.2); Alkaline Phosphatase 101 Units/L (34-104); Aspartate Amino Transferase 39 Units/L (13-39); BUN/Creatinine Ratio 16 (6-26); Bilirubin,Total 0.6 mg/dL (0.3-1.0); Blood Urea Nitrogen 13 mg/dL (8-23); Calcium 8.9 mg/dL (8.6-10.3); Carbon Dioxide 24 mEq/L (23-29); Chloride 99 mEq/L (98-107); Globulin 2.1 g/dL (2.4-3.5); Glucose 182 mg/dL (70-105); Osmolality,Calculated 283 (280-300); Potassium 4.2 mEq/L (3.5-5.1); Sodium 134 mEq/L (136-145); Total Protein 5.6 g/dL (6.4-8.9); eGFR For African Americans > 60 (> 60); eGFR For Non-African Americans > 60 (> 60)
[2019-03-02] MEDS ORDERED: *HR* HYDROmorphone (PF) 1 MG/ML SYRINGE IVP PRN (21:01)
[2019-03-02] MEDS ORDERED: Ondansetron ODT 4 MG TAB.RAPDIS SL PRN (22:30)
[2019-03-02] MEDS ORDERED: Gabapentin 300 MG CAPSULE PO SCH (22:30)
[2019-03-02] MEDS ORDERED: Naloxone 0.4 MG/ML INJ IVP PRN (22:30)
[2019-03-02] MEDS ORDERED: *HR* HYDROmorphone (PF) 1 MG/ML SYRINGE IVP STA (22:30)
[2019-03-02] MEDS ORDERED: MOM Conc 10 ML UD.LIQ PO PRN (22:30)
[2019-03-02] MEDS ORDERED: Mag Hydrox/Al Hydrox/Simeth 30 ML UDC PO PRN (22:30)
[2019-03-03] MEDS: Ibuprofen 400 MG TABLET PO SCH ×2 (00:04→08:03)
[2019-03-03] MEDS: Famotidine 20 MG TABLET PO SCH ×2 (00:14→08:03)
[2019-03-03] MEDS: *HR* OxyCODONE/APAP 5/325 TABLET PO PRN ×3 (00:32→15:25)
[2019-03-03] MEDS: *HR* HYDROmorphone (PF) 1 MG/ML SYRINGE IVP PRN ×2 (03:26→11:28)
[2019-03-03] MEDS ORDERED: *HR* Enoxaparin 40 MG/0.4 ML SYRINGE SQ SCH (07:00)
[2019-03-03] MEDS ORDERED: *HR* Metformin 500 MG TABLET PO SCH (08:00)
[2019-03-03] MEDS ORDERED: (Leflunomide [Arava] 20 MG) PO SCH (09:00)
[2019-03-03] MEDS ORDERED: MESALAMINE PO SCH (09:00)
[2019-03-03] MEDS ORDERED: predniSONE 20 MG TABLET PO SCH ×2 (09:00)
[2019-03-03] MEDS ORDERED: Aspirin Enteric Coated 81 MG Tablet PO SCH (09:00)
[2019-03-03] MEDS ORDERED: Folic Acid 1 MG TABLET PO SCH (12:00)
[2019-03-03 12:36] VITALS: BP 124/75
[2019-03-03] MEDS ORDERED: GlipiZIDE 5 MG TABLET PO SCH (17:00)
== END 2019-03-03 16:53 | disposition home or self-care (01) ==
LOC: EMEROOGRE 16:52 → INPGRE 16:52

== ENCOUNTER 2019-03-14 18:12 | Inpatient (IN) ==
[2019-03-14] MEDS ORDERED: Morphine Sulfate 2 MG/ML SYRINGE IVP ONE (18:32)
[2019-03-14] MEDS ORDERED: Ondansetron 4 MG/2 ML VIAL IVP ONE ×2 (18:32→20:00)
[2019-03-14] MEDS ORDERED: *HR* HYDROmorphone (PF) 1 MG/ML SYRINGE IVP ONE ×3 (20:01→21:36)
[2019-03-14] MEDS ORDERED: Naloxone 0.4 MG/ML INJ IVP PRN (23:23)
[2019-03-15] MEDS: *HR* HYDROmorphone (PF) 1 MG/ML SYRINGE IVP PRN ×2 (00:47→04:50)
[2019-03-15] MEDS: *HR* OxyCODONE/APAP 5/325 TABLET PO PRN ×4 (01:52→20:35)
[2019-03-15 05:46] LABS: Bilirubin,Urine Small (Negative); Blood,Urine Negative (Negative); Clarity,Urine Slightly Cloudy (Clear); Color,Urine Dark Yellow (Yellow); Glucose,Urine (UA) 500 mg/dL (Normal); Ketones,Urine 15 mg/dL (Negative); Leukocyte Esterase,Urine Negative (Negative); Nitrite,Urine Negative (Negative); PH,Urine 5.5 pH Units (5.0-8.0); Protein,Urine 30 mg/dL (Neg-Trace); Specific Gravity,Urine >= 1.030 (1.010-1.025); Urobilinogen,Urine Normal (Normal)
[2019-03-15 05:47] LABS: Amorphous Sediment,Urine Few per hpf (Few); Squamous Epithelial Cell,Urine Few per lpf (None-Few)
[2019-03-15] MEDS: Ondansetron ODT 4 MG TAB.RAPDIS SL PRN ×2 (06:26→12:03)
[2019-03-15] MEDS: *HR* Enoxaparin 40 MG/0.4 ML SYRINGE SQ SCH (06:58)
[2019-03-15] MEDS: *HR* OxyCODONE ER (12 HR) 10 MG TABLET PO SCH ×2 (06:58→18:17)
[2019-03-15] MEDS: Famotidine 20 MG TABLET PO SCH ×2 (06:58→16:32)
[2019-03-15] MEDS: *HR* Metformin 500 MG TABLET PO SCH ×2 (08:14→16:32)
[2019-03-15] MEDS: Folic Acid 1 MG TABLET PO SCH (12:03)
[2019-03-15] MEDS: Gabapentin 400 MG CAPSULE PO SCH ×3 (12:03→20:34)
[2019-03-15] MEDS ORDERED: GlipiZIDE 5 MG TABLET PO SCH (17:00)
[2019-03-15] MEDS ORDERED: Gabapentin 300 MG CAPSULE PO SCH (21:00)
[2019-03-16] MEDS: *HR* HYDROmorphone (PF) 1 MG/ML SYRINGE IVP PRN ×2 (03:51→09:11)
[2019-03-16] MEDS: Famotidine 20 MG TABLET PO SCH ×3 (06:08→18:33)
[2019-03-16] MEDS: *HR* Enoxaparin 40 MG/0.4 ML SYRINGE SQ SCH (06:09)
[2019-03-16] MEDS: *HR* OxyCODONE ER (12 HR) 10 MG TABLET PO SCH ×3 (06:09→19:58)
[2019-03-16] MEDS: Gabapentin 400 MG CAPSULE PO SCH ×3 (08:02→20:27)
[2019-03-16] MEDS: *HR* Metformin 500 MG TABLET PO SCH (08:02)
[2019-03-16] MEDS: Ketorolac 15 MG/ML VIAL IVP PRN ×2 (08:07→10:05)
[2019-03-16] MEDS ORDERED: Mesalamine 250 MG CAPSULE.ER PO SCH (09:00)
[2019-03-16] MEDS: Folic Acid 1 MG TABLET PO SCH (12:55)
[2019-03-16] MEDS: *HR* OxyCODONE/APAP 5/325 TABLET PO PRN ×2 (13:00→20:27)
[2019-03-16] MEDS ORDERED: 0.9 % Sodium Chloride 1,000 ML IVC SCH (13:00)
[2019-03-16] MEDS ORDERED: *HR* Dextrose 50 % in Water (Syg) 50 ML SYRINGE IVP PRN (14:46)
[2019-03-16] MEDS ORDERED: D5% in Water 1,000 ML IVC PRN (14:46)
[2019-03-16] MEDS ORDERED: Dextrose Gel 15 GM/37.5 ML TUBE PO PRN ×2 (14:46)
[2019-03-16] MEDS ORDERED: Insulin LISPRO 300 UNITS/3 ML VIAL SQ SCH ×2 (16:30→21:00)
[2019-03-17] MEDS: *HR* OxyCODONE/APAP 5/325 TABLET PO PRN (03:33)
[2019-03-17 03:44] VITALS: BP 156/79
== END 2019-03-17 04:32 | disposition short-term general hospital (02) | DRG 552 ==
LOC: EMEROOGRE 18:12 → SUATTDRO 22:21 → INPGRE 22:21
PROVIDERS: ADMIT Internal Medicine; ATTEND Family Medicine

== ENCOUNTER 2019-03-17 17:25 | Inpatient (IN) ==
[2019-03-18] MEDS ORDERED: USTEKINUMAB SQ SCH (18:45)
[2019-03-18] MEDS ORDERED: *HR* Dextrose 50 % in Water (Syg) 50 ML SYRINGE IVP PRN (18:47)
[2019-03-18] MEDS ORDERED: Dextrose Gel 15 GM/37.5 ML TUBE PO PRN ×2 (18:47→21:07)
[2019-03-18] MEDS ORDERED: D5% in Water 1,000 ML IVC PRN (18:47)
[2019-03-18] MEDS ORDERED: cloNIDine HCl 0.1 MG TABLET PO PRN (19:14)
[2019-03-18] MEDS: *HR* OxyCODONE/APAP 5/325 TABLET PO PRN (19:57)
[2019-03-18] MEDS ORDERED: Gabapentin 300 MG CAPSULE PO SCH (21:00)
[2019-03-18] MEDS: tiZANidine 4 MG TABLET PO PRN (21:04)
[2019-03-18] MEDS: Insulin LISPRO 300 UNITS/3 ML VIAL SQ SCH (21:05)
[2019-03-19] MEDS: *HR* OxyCODONE/APAP 5/325 TABLET PO PRN ×3 (01:12→23:40)
[2019-03-19] MEDS: tiZANidine 4 MG TABLET PO PRN (04:38)
[2019-03-19 07:11] LABS: Basophils % 0.5 %; Eosinophils # 0.1 K/mcL (0.0-0.6); Eosinophils % 0.9 %; Hematocrit 29.3 % (35.3-44.9); Hemoglobin 9.2 g/dL (11.5-15.4); Immature Granulocytes % 0.5 % (0-4); Lymphocytes # 1.2 K/mcL (0.6-4.6); Mean Corpuscular HGB Conc 31.4 g/dL (31.6-35.5); Mean Corpuscular Hemoglobin 29.6 pg (28.0-33.3); Mean Corpuscular Volume 94.2 fL (83.0-100.0); Mean Platelet Volume 10.1 fL (9.4-12.4); Monocytes # 0.8 K/mcL (0.0-1.3); Monocytes % 13.4 %; Neutrophils # 3.6 K/mcL (1.6-8.9); Platelet Count 146 K/mcL (140-400); Red Blood Count 3.11 M/mcL (3.82-4.97); Red Cell Distribution Width 15.9 % (11.5-14.5); Segmented Neutrophils % 63.7 %; White Blood Count 5.7 K/mcL (4.3-11.1)
[2019-03-19 07:28] LABS: Alanine Aminotransferase 30 Units/L (7-52); Albumin 2.6 g/dL (3.5-5.7); Albumin/Globulin Ratio 1.4 (1.1-2.2); Alkaline Phosphatase 102 Units/L (34-104); Aspartate Amino Transferase 31 Units/L (13-39); BUN/Creatinine Ratio 12 (6-26); Bilirubin,Total 0.7 mg/dL (0.3-1.0); Blood Urea Nitrogen 7 mg/dL (8-23); Calcium 7.6 mg/dL (8.6-10.3); Carbon Dioxide 26 mEq/L (23-29); Chloride 106 mEq/L (98-107); Globulin 1.9 g/dL (2.4-3.5); Glucose 160 mg/dL (70-105); Magnesium 1.8 mg/dL (1.6-2.6); Osmolality,Calculated 283 (280-300); Potassium 4.2 mEq/L (3.5-5.1); Sodium 136 mEq/L (136-145); Total Protein 4.5 g/dL (6.4-8.9); eGFR For African Americans > 60 (> 60); eGFR For Non-African Americans > 60 (> 60)
[2019-03-19] MEDS: predniSONE 5 MG TABLET PO SCH (08:42)
[2019-03-19] MEDS: *HR* Metformin 500 MG TABLET PO SCH ×2 (08:42→17:24)
[2019-03-19] MEDS: Insulin LISPRO 300 UNITS/3 ML VIAL SQ SCH ×4 (08:47→20:14)
[2019-03-19] MEDS ORDERED: MESALAMINE PO SCH (09:00)
[2019-03-19] MEDS ORDERED: *HR* HYDROmorphone (PF) 1 MG/ML SYRINGE SQ ONE (10:13)
[2019-03-19] MEDS: Folic Acid 1 MG TABLET PO SCH (12:10)
[2019-03-19] MEDS: Gabapentin 300 MG CAPSULE PO SCH ×2 (15:30→20:14)
[2019-03-19] MEDS: tiZANidine 4 MG TABLET PO SCH ×2 (15:30→20:13)
[2019-03-19] MEDS: GlipiZIDE 5 MG TABLET PO SCH (17:25)
[2019-03-19] MEDS: *HR* OxyCODONE ER (12 HR) 10 MG TABLET PO SCH (17:25)
[2019-03-20] MEDS: *HR* OxyCODONE ER (12 HR) 10 MG TABLET PO SCH ×2 (05:29→17:15)
[2019-03-20 05:56] LABS: Hemoglobin 9.7 g/dL (11.5-15.4); Mean Corpuscular HGB Conc 30.3 g/dL (31.6-35.5); Mean Corpuscular Hemoglobin 28.6 pg (28.0-33.3); Mean Corpuscular Volume 94.4 fL (83.0-100.0); Mean Platelet Volume 9.9 fL (9.4-12.4); Platelet Count 185 K/mcL (140-400); Red Blood Count 3.39 M/mcL (3.82-4.97); Red Cell Distribution Width 15.9 % (11.5-14.5)
[2019-03-20 06:10] LABS: BUN/Creatinine Ratio 11 (6-26); Blood Urea Nitrogen 7 mg/dL (8-23); Calcium 8.4 mg/dL (8.6-10.3); Carbon Dioxide 28 mEq/L (23-29); Chloride 105 mEq/L (98-107); Glucose 72 mg/dL (70-105); Magnesium 1.7 mg/dL (1.6-2.6); Osmolality,Calculated 285 (280-300); Sodium 139 mEq/L (136-145); eGFR For African Americans > 60 (> 60); eGFR For Non-African Americans > 60 (> 60)
[2019-03-20] MEDS: Insulin LISPRO 300 UNITS/3 ML VIAL SQ SCH ×4 (07:25→21:20)
[2019-03-20] MEDS: *HR* Metformin 500 MG TABLET PO SCH ×2 (07:33→17:14)
[2019-03-20] MEDS: tiZANidine 4 MG TABLET PO SCH ×3 (07:33→21:20)
[2019-03-20] MEDS: Gabapentin 300 MG CAPSULE PO SCH ×3 (07:33→21:20)
[2019-03-20] MEDS: predniSONE 5 MG TABLET PO SCH (07:34)
[2019-03-20] MEDS: (Dulaglutide [Trulicity] 0.5 ML) SQ SCH (07:37)
[2019-03-20] MEDS: *HR* OxyCODONE/APAP 5/325 TABLET PO PRN ×2 (09:19→13:15)
[2019-03-20] MEDS: Folic Acid 1 MG TABLET PO SCH (13:15)
[2019-03-20 13:52] LABS: Estimated Average Glucose 203 mg/dl
[2019-03-20] MEDS: GlipiZIDE 5 MG TABLET PO SCH (17:15)
[2019-03-21] MEDS: *HR* OxyCODONE ER (12 HR) 10 MG TABLET PO SCH (06:13)
[2019-03-21] MEDS: Insulin LISPRO 300 UNITS/3 ML VIAL SQ SCH ×4 (07:44→20:41)
[2019-03-21] MEDS: tiZANidine 4 MG TABLET PO SCH ×3 (08:15→20:58)
[2019-03-21] MEDS: predniSONE 5 MG TABLET PO SCH (08:15)
[2019-03-21] MEDS: Gabapentin 300 MG CAPSULE PO SCH ×3 (08:15→20:58)
[2019-03-21] MEDS: *HR* Metformin 500 MG TABLET PO SCH ×2 (08:15→17:26)
[2019-03-21] MEDS: *HR* OxyCODONE/APAP 5/325 TABLET PO PRN ×3 (09:45→20:58)
[2019-03-21] MEDS: Folic Acid 1 MG TABLET PO SCH (12:30)
[2019-03-21] MEDS: *HR* OxyCODONE ER (12 HR) 20 MG TABLET PO SCH (17:26)
[2019-03-21] MEDS: GlipiZIDE 5 MG TABLET PO SCH (17:26)
[2019-03-21] MEDS ORDERED: Mag Hydrox/Al Hydrox/Simeth 30 ML UDC PO PRN (21:38)
[2019-03-22] MEDS: *HR* OxyCODONE ER (12 HR) 20 MG TABLET PO SCH ×2 (05:22→17:08)
[2019-03-22] MEDS: Insulin LISPRO 300 UNITS/3 ML VIAL SQ SCH ×4 (07:59→19:55)
[2019-03-22] MEDS: tiZANidine 4 MG TABLET PO SCH ×3 (08:11→20:01)
[2019-03-22] MEDS: *HR* Metformin 500 MG TABLET PO SCH ×2 (08:11→17:08)
[2019-03-22] MEDS: predniSONE 5 MG TABLET PO SCH (08:11)
[2019-03-22] MEDS: *HR* OxyCODONE/APAP 5/325 TABLET PO PRN ×3 (08:11→20:02)
[2019-03-22] MEDS: Gabapentin 300 MG CAPSULE PO SCH ×3 (08:11→20:01)
[2019-03-22] MEDS: Folic Acid 1 MG TABLET PO SCH (12:41)
[2019-03-22] MEDS: GlipiZIDE 5 MG TABLET PO SCH (17:08)
[2019-03-23] MEDS: *HR* OxyCODONE/APAP 5/325 TABLET PO PRN ×4 (03:42→16:54)
[2019-03-23] MEDS: *HR* OxyCODONE ER (12 HR) 20 MG TABLET PO SCH ×2 (05:56→17:49)
[2019-03-23] MEDS: Insulin LISPRO 300 UNITS/3 ML VIAL SQ SCH ×4 (07:32→22:32)
[2019-03-23] MEDS: tiZANidine 4 MG TABLET PO SCH ×3 (08:26→22:32)
[2019-03-23] MEDS: *HR* Metformin 500 MG TABLET PO SCH ×2 (08:26→16:54)
[2019-03-23] MEDS: Gabapentin 300 MG CAPSULE PO SCH ×3 (08:26→22:32)
[2019-03-23] MEDS: predniSONE 5 MG TABLET PO SCH (08:26)
[2019-03-23] MEDS: Folic Acid 1 MG TABLET PO SCH (11:54)
[2019-03-23] MEDS: GlipiZIDE 5 MG TABLET PO SCH (16:54)
[2019-03-24] MEDS: *HR* OxyCODONE ER (12 HR) 20 MG TABLET PO SCH ×2 (06:32→17:40)
[2019-03-24] MEDS: Insulin LISPRO 300 UNITS/3 ML VIAL SQ SCH ×4 (07:40→22:10)
[2019-03-24] MEDS: predniSONE 5 MG TABLET PO SCH (08:01)
[2019-03-24] MEDS: Gabapentin 300 MG CAPSULE PO SCH ×3 (08:01→22:10)
[2019-03-24] MEDS: *HR* OxyCODONE/APAP 5/325 TABLET PO PRN ×3 (08:01→16:02)
[2019-03-24] MEDS: *HR* Metformin 500 MG TABLET PO SCH ×2 (08:01→17:40)
[2019-03-24] MEDS: tiZANidine 4 MG TABLET PO SCH ×3 (08:01→22:10)
[2019-03-24] MEDS: Folic Acid 1 MG TABLET PO SCH (12:10)
[2019-03-24] MEDS: Triamcinolone Acet 0.1% CRM 15 GM TUBE TP SCH (15:56)
[2019-03-24] MEDS: GlipiZIDE 5 MG TABLET PO SCH (17:40)
[2019-03-25] MEDS: *HR* OxyCODONE ER (12 HR) 20 MG TABLET PO SCH ×2 (05:25→17:20)
[2019-03-25] MEDS: Insulin LISPRO 300 UNITS/3 ML VIAL SQ SCH ×4 (08:14→19:54)
[2019-03-25] MEDS: predniSONE 5 MG TABLET PO SCH (08:23)
[2019-03-25] MEDS: *HR* Metformin 500 MG TABLET PO SCH ×2 (08:23→17:19)
[2019-03-25] MEDS: *HR* OxyCODONE/APAP 5/325 TABLET PO PRN ×3 (08:23→18:31)
[2019-03-25] MEDS: Gabapentin 300 MG CAPSULE PO SCH ×3 (08:23→19:55)
[2019-03-25] MEDS: tiZANidine 4 MG TABLET PO SCH ×3 (08:23→19:55)
[2019-03-25] MEDS: Folic Acid 1 MG TABLET PO SCH (12:05)
[2019-03-25] MEDS: GlipiZIDE 5 MG TABLET PO SCH (17:19)
[2019-03-26] MEDS: *HR* OxyCODONE/APAP 5/325 TABLET PO PRN ×4 (00:05→23:06)
[2019-03-26] MEDS: *HR* OxyCODONE ER (12 HR) 20 MG TABLET PO SCH ×2 (05:26→18:09)
[2019-03-26] MEDS: Insulin LISPRO 300 UNITS/3 ML VIAL SQ SCH ×4 (08:18→20:04)
[2019-03-26] MEDS: predniSONE 5 MG TABLET PO SCH (08:24)
[2019-03-26] MEDS: Gabapentin 300 MG CAPSULE PO SCH ×3 (08:24→20:06)
[2019-03-26] MEDS: tiZANidine 4 MG TABLET PO SCH ×3 (08:24→20:07)
[2019-03-26] MEDS: *HR* Metformin 500 MG TABLET PO SCH ×2 (08:24→16:55)
[2019-03-26] MEDS: Folic Acid 1 MG TABLET PO SCH (12:02)
[2019-03-26] MEDS: GlipiZIDE 5 MG TABLET PO SCH (16:55)
[2019-03-27] MEDS: *HR* OxyCODONE ER (12 HR) 20 MG TABLET PO SCH ×2 (05:39→18:03)
[2019-03-27 05:54] LABS: Hematocrit 32.5 % (35.3-44.9); Hemoglobin 9.9 g/dL (11.5-15.4); Mean Corpuscular HGB Conc 30.5 g/dL (31.6-35.5); Mean Corpuscular Hemoglobin 28.9 pg (28.0-33.3); Mean Platelet Volume 9.6 fL (9.4-12.4); Platelet Count 305 K/mcL (140-400); Red Blood Count 3.42 M/mcL (3.82-4.97); Red Cell Distribution Width 15.5 % (11.5-14.5); White Blood Count 5.5 K/mcL (4.3-11.1)
[2019-03-27 06:21] LABS: BUN/Creatinine Ratio 10 (6-26); Blood Urea Nitrogen 8 mg/dL (8-23); Calcium 8.6 mg/dL (8.6-10.3); Carbon Dioxide 30 mEq/L (23-29); Chloride 103 mEq/L (98-107); Glucose 73 mg/dL (70-105); Magnesium 1.6 mg/dL (1.6-2.6); Osmolality,Calculated 287 (280-300); Potassium 4.1 mEq/L (3.5-5.1); Sodium 140 mEq/L (136-145); eGFR For African Americans > 60 (> 60); eGFR For Non-African Americans > 60 (> 60)
[2019-03-27] MEDS: Insulin LISPRO 300 UNITS/3 ML VIAL SQ SCH ×4 (07:58→20:49)
[2019-03-27] MEDS: predniSONE 5 MG TABLET PO SCH (08:04)
[2019-03-27] MEDS: Gabapentin 300 MG CAPSULE PO SCH ×3 (08:04→20:48)
[2019-03-27] MEDS: tiZANidine 4 MG TABLET PO SCH ×3 (08:04→20:48)
[2019-03-27] MEDS: *HR* Metformin 500 MG TABLET PO SCH ×2 (08:04→18:03)
[2019-03-27] MEDS: (Dulaglutide [Trulicity] 0.5 ML) SQ SCH (08:05)
[2019-03-27] MEDS: Folic Acid 1 MG TABLET PO SCH (12:39)
[2019-03-27] MEDS: *HR* OxyCODONE/APAP 5/325 TABLET PO PRN ×2 (12:41→20:48)
[2019-03-27] MEDS: Triamcinolone Acet 0.1% CRM 15 GM TUBE TP SCH (12:42)
[2019-03-27] MEDS: GlipiZIDE 5 MG TABLET PO SCH (18:03)
[2019-03-28] MEDS: *HR* OxyCODONE ER (12 HR) 20 MG TABLET PO SCH (06:33)
[2019-03-28] MEDS: Insulin LISPRO 300 UNITS/3 ML VIAL SQ SCH ×4 (07:53→20:01)
[2019-03-28] MEDS: Gabapentin 300 MG CAPSULE PO SCH ×3 (08:32→19:55)
[2019-03-28] MEDS: *HR* Metformin 500 MG TABLET PO SCH ×2 (08:32→17:16)
[2019-03-28] MEDS: predniSONE 5 MG TABLET PO SCH (08:32)
[2019-03-28] MEDS: tiZANidine 4 MG TABLET PO SCH (08:32)
[2019-03-28] MEDS ORDERED: *HR* OxyCODONE/APAP 5/325 TABLET PO PRN (09:12)
[2019-03-28] MEDS: *HR* OxyCODONE/APAP 5/325 TABLET PO PRN (11:46)
[2019-03-28] MEDS: Ondansetron ODT 4 MG TAB.RAPDIS SL PRN (11:47)
[2019-03-28] MEDS: Folic Acid 1 MG TABLET PO SCH (11:47)
[2019-03-28] MEDS: GlipiZIDE 5 MG TABLET PO SCH (17:16)
[2019-03-28] MEDS: *HR* OxyCODONE ER (12 HR) 10 MG TABLET PO SCH (18:05)
[2019-03-28] MEDS: tiZANidine 4 MG TABLET PO PRN (19:55)
[2019-03-29] MEDS: *HR* OxyCODONE/APAP 5/325 TABLET PO PRN ×4 (00:09→21:57)
[2019-03-29] MEDS: *HR* OxyCODONE ER (12 HR) 10 MG TABLET PO SCH ×2 (05:33→18:40)
[2019-03-29] MEDS: Gabapentin 300 MG CAPSULE PO SCH (07:26)
[2019-03-29] MEDS: predniSONE 5 MG TABLET PO SCH (07:26)
[2019-03-29] MEDS: *HR* Metformin 500 MG TABLET PO SCH ×2 (07:27→16:43)
[2019-03-29] MEDS: Insulin LISPRO 300 UNITS/3 ML VIAL SQ SCH ×4 (08:48→20:48)
[2019-03-29] MEDS: tiZANidine 4 MG TABLET PO PRN ×2 (10:30→21:57)
[2019-03-29] MEDS: Folic Acid 1 MG TABLET PO SCH (13:02)
[2019-03-29 15:17] LABS: Hematocrit 34.9 % (35.3-44.9); Hemoglobin 10.7 g/dL (11.5-15.4); Mean Corpuscular HGB Conc 30.7 g/dL (31.6-35.5); Mean Corpuscular Hemoglobin 29.2 pg (28.0-33.3); Mean Corpuscular Volume 95.1 fL (83.0-100.0); Mean Platelet Volume 9.5 fL (9.4-12.4); Platelet Count 455 K/mcL (140-400); Red Blood Count 3.67 M/mcL (3.82-4.97); Red Cell Distribution Width 15.3 % (11.5-14.5)
[2019-03-29 15:32] LABS: BUN/Creatinine Ratio 12 (6-26); Blood Urea Nitrogen 10 mg/dL (8-23); Calcium 8.6 mg/dL (8.6-10.3); Carbon Dioxide 26 mEq/L (23-29); Chloride 101 mEq/L (98-107); Glucose 122 mg/dL (70-105); Osmolality,Calculated 286 (280-300); Potassium 3.9 mEq/L (3.5-5.1); Sodium 138 mEq/L (136-145); eGFR For African Americans > 60 (> 60); eGFR For Non-African Americans > 60 (> 60)
[2019-03-29] MEDS: Gabapentin 100 MG CAPSULE PO SCH ×2 (16:44→21:57)
[2019-03-29] MEDS: GlipiZIDE 5 MG TABLET PO SCH (16:48)
[2019-03-29] MEDS: Triamcinolone Acet 0.1% CRM 15 GM TUBE TP SCH (17:06)
[2019-03-29 18:57] LABS: Bilirubin,Urine Negative (Negative); Blood,Urine Trace-intact (Negative); Clarity,Urine Clear (Clear); Color,Urine Yellow (Yellow); Glucose,Urine (UA) Normal (Normal); Ketones,Urine Negative (Negative); Leukocyte Esterase,Urine Negative (Negative); Nitrite,Urine Positive (Negative); PH,Urine 5.5 pH Units (5.0-8.0); Protein,Urine Trace mg/dL (Neg-Trace); Specific Gravity,Urine >= 1.030 (1.010-1.025); Urobilinogen,Urine Normal (Normal)
[2019-03-29 19:54] LABS: Bacteria,Urine Many per hpf (None-Few); Squamous Epithelial Cell,Urine Few per lpf (None-Few)
[2019-03-30] MEDS: Ondansetron ODT 4 MG TAB.RAPDIS SL PRN (00:40)
[2019-03-30] MEDS: *HR* OxyCODONE ER (12 HR) 10 MG TABLET PO SCH (06:57)
[2019-03-30 07:10] VITALS: BP 145/80
[2019-03-30] MEDS: Insulin LISPRO 300 UNITS/3 ML VIAL SQ SCH ×2 (08:58→11:44)
[2019-03-30] MEDS ORDERED: *HR* Promethazine 25 MG/ML VIAL IM ONE (09:18)
[2019-03-30] MEDS: *HR* Metformin 500 MG TABLET PO SCH (10:19)
[2019-03-30] MEDS: predniSONE 5 MG TABLET PO SCH (10:19)
[2019-03-30] MEDS: Gabapentin 100 MG CAPSULE PO SCH ×2 (10:20→14:33)
[2019-03-30] MEDS: Folic Acid 1 MG TABLET PO SCH (13:26)
== END 2019-03-30 17:20 | disposition home health service (06) | DRG 560 ==
LOC: INPGRE 03-18 18:08
PROVIDERS: ADMIT Family Medicine; ATTEND Family Medicine

== ENCOUNTER 2019-03-31 18:26 | Observation (INO) ==
[2019-03-31] MEDS ORDERED: *HR* Promethazine 25 MG/ML VIAL IM ONE (19:13)
[2019-03-31 19:52] LABS: Bilirubin,Urine Negative (Negative); Blood,Urine Negative (Negative); Clarity,Urine Clear (Clear); Color,Urine Yellow (Yellow); Glucose,Urine (UA) Normal (Normal); Ketones,Urine 15 mg/dL (Negative); Leukocyte Esterase,Urine Negative (Negative); Nitrite,Urine Negative (Negative); PH,Urine 6.5 pH Units (5.0-8.0); Protein,Urine Negative (Neg-Trace); Specific Gravity,Urine 1.015 (1.010-1.025); Urobilinogen,Urine Normal (Normal)
[2019-03-31] MEDS ORDERED: Metoclopramide 10 MG/2 ML VIAL IVP ONE (20:54)
[2019-03-31] MEDS ORDERED: 0.9 % Sodium Chloride 1,000 ML IVC SCH ×2 (21:00→23:44)
[2019-03-31] MEDS ORDERED: Pantoprazole 40 MG VIAL IVP ONE (21:28)
[2019-03-31 21:35] LABS: Basophils # 0.1 K/mcL (0.0-0.2); Basophils % 1.7 %; Eosinophils % 0.4 %; Hematocrit 37.8 % (35.3-44.9); Hemoglobin 11.6 g/dL (11.5-15.4); Immature Granulocytes % 1.5 % (0-4); Lymphocytes # 1.3 K/mcL (0.6-4.6); Lymphocytes % 18.4 %; Mean Corpuscular HGB Conc 30.7 g/dL (31.6-35.5); Mean Corpuscular Hemoglobin 29.1 pg (28.0-33.3); Mean Corpuscular Volume 94.7 fL (83.0-100.0); Mean Platelet Volume 9.8 fL (9.4-12.4); Monocytes # 0.7 K/mcL (0.0-1.3); Monocytes % 9.8 %; Neutrophils # 4.7 K/mcL (1.6-8.9); Nucleated Red Blood Cells 0.3 /100 WBC (0); Platelet Count 479 K/mcL (140-400); Red Blood Count 3.99 M/mcL (3.82-4.97); Segmented Neutrophils % 68.2 %; White Blood Count 6.9 K/mcL (4.3-11.1)
[2019-03-31] MEDS ORDERED: *HR* HYDROmorphone (PF) 1 MG/ML SYRINGE IVP ONE (21:45)
[2019-03-31 21:47] LABS: Alanine Aminotransferase 16 Units/L (7-52); Albumin 3.8 g/dL (3.5-5.7); Albumin/Globulin Ratio 1.5 (1.1-2.2); Alkaline Phosphatase 125 Units/L (34-104); Aspartate Amino Transferase 22 Units/L (13-39); BUN/Creatinine Ratio 13 (6-26); Bilirubin,Total 0.6 mg/dL (0.3-1.0); Blood Urea Nitrogen 10 mg/dL (8-23); Calcium 9.2 mg/dL (8.6-10.3); Carbon Dioxide 27 mEq/L (23-29); Chloride 103 mEq/L (98-107); Globulin 2.6 g/dL (2.4-3.5); Glucose 148 mg/dL (70-105); Lipase 47 Units/L (11-82); Osmolality,Calculated 294 (280-300); Potassium 3.6 mEq/L (3.5-5.1); Sodium 141 mEq/L (136-145); Total Protein 6.4 g/dL (6.4-8.9); eGFR For African Americans > 60 (> 60); eGFR For Non-African Americans > 60 (> 60)
[2019-03-31] MEDS ORDERED: Ondansetron 4 MG/2 ML VIAL IVP ONE (22:10)
[2019-03-31] MEDS ORDERED: 0.9 % Sodium Chloride 1,000 ML IVC ONE (22:17)
[2019-03-31] MEDS ORDERED: Mag Hydrox/Al Hydrox/Simeth 30 ML UDC PO PRN (23:44)
[2019-03-31] MEDS ORDERED: Naloxone 0.4 MG/ML INJ IVP PRN (23:44)
[2019-03-31] MEDS ORDERED: *HR* Promethazine 25 MG/ML VIAL IVP PRN (23:44)
[2019-03-31] MEDS ORDERED: tiZANidine 4 MG TABLET PO PRN (23:44)
[2019-03-31] MEDS ORDERED: Acetaminophen 325 MG TABLET PO PRN (23:44)
[2019-04-01] MEDS: 0.9 % Sodium Chloride 1,000 ML IVC SCH ×2 (00:28→11:04)
[2019-04-01] MEDS: Sucralfate 1 GM TABLET PO SCH ×5 (02:22→19:59)
[2019-04-01] MEDS: Gabapentin 300 MG CAPSULE PO SCH ×2 (02:27→19:59)
[2019-04-01] MEDS: *HR* OxyCODONE Immed Rel 5 MG TABLET PO PRN ×3 (02:29→17:19)
[2019-04-01] MEDS: *HR* Enoxaparin 40 MG/0.4 ML SYRINGE SQ SCH ×2 (02:30→07:36)
[2019-04-01] MEDS: MESALAMINE PO SCH ×2 (02:30→09:08)
[2019-04-01 06:34] LABS: Basophils # 0.1 K/mcL (0.0-0.2); Basophils % 0.8 %; Eosinophils % 0.1 %; Hematocrit 29.9 % (35.3-44.9); Hemoglobin 9.1 g/dL (11.5-15.4); Immature Granulocytes % 0.9 % (0-4); Lymphocytes # 0.7 K/mcL (0.6-4.6); Lymphocytes % 9.6 %; Mean Corpuscular HGB Conc 30.4 g/dL (31.6-35.5); Mean Corpuscular Hemoglobin 28.7 pg (28.0-33.3); Mean Corpuscular Volume 94.3 fL (83.0-100.0); Mean Platelet Volume 9.4 fL (9.4-12.4); Monocytes % 13.4 %; Neutrophils # 5.6 K/mcL (1.6-8.9); Nucleated Red Blood Cells 0.3 /100 WBC (0); Platelet Count 358 K/mcL (140-400); Red Blood Count 3.17 M/mcL (3.82-4.97); Red Cell Distribution Width 15.3 % (11.5-14.5); Segmented Neutrophils % 75.2 %; White Blood Count 7.5 K/mcL (4.3-11.1)
[2019-04-01 06:52] LABS: BUN/Creatinine Ratio 13 (6-26); Blood Urea Nitrogen 9 mg/dL (8-23); Carbon Dioxide 26 mEq/L (23-29); Chloride 108 mEq/L (98-107); Glucose 113 mg/dL (70-105); Osmolality,Calculated 293 (280-300); Potassium 3.4 mEq/L (3.5-5.1); Sodium 142 mEq/L (136-145); eGFR For African Americans > 60 (> 60); eGFR For Non-African Americans > 60 (> 60)
[2019-04-01] MEDS ORDERED: NON-FORMULARY MEDICATION 1 EACH EACH (Pantoprazole Sodium [Protonix] 40 MG) PO SCH (09:00)
[2019-04-01] MEDS: *HR* Metformin 500 MG TABLET PO SCH ×2 (09:06→16:49)
[2019-04-01] MEDS: predniSONE 5 MG TABLET PO SCH (09:06)
[2019-04-01] MEDS: Folic Acid 1 MG TABLET PO SCH (11:03)
[2019-04-01] MEDS ORDERED: GlipiZIDE 5 MG TABLET PO SCH (17:00)
[2019-04-02] MEDS: *HR* OxyCODONE Immed Rel 5 MG TABLET PO PRN ×2 (02:33→09:06)
[2019-04-02 08:48] VITALS: BP 157/83
[2019-04-02] MEDS: *HR* Enoxaparin 40 MG/0.4 ML SYRINGE SQ SCH (09:06)
[2019-04-02] MEDS: predniSONE 5 MG TABLET PO SCH (09:07)
[2019-04-02] MEDS: *HR* Metformin 500 MG TABLET PO SCH (09:07)
[2019-04-02] MEDS: Sucralfate 1 GM TABLET PO SCH ×2 (09:07→11:58)
[2019-04-02] MEDS: MESALAMINE PO SCH (09:10)
[2019-04-02] MEDS: Folic Acid 1 MG TABLET PO SCH (11:58)
[2019-04-03] MEDS ORDERED: (Dulaglutide [Trulicity] 0.5 ML) SQ SCH (09:00)
== END 2019-04-02 12:50 | disposition home or self-care (01) ==
LOC: INPGRE 18:26 → EMEROOGRE 18:26 → INPGRE 23:50
PROVIDERS: ADMIT Family Medicine; ATTEND Family Medicine

== ENCOUNTER 2019-04-28 16:27 | Inpatient (IN) ==
[2019-04-29] MEDS ORDERED: *HR* OxyCODONE/APAP 5/325 TABLET PO PRN
[2019-04-29] MEDS: Gabapentin 300 MG CAPSULE PO SCH ×2 (00:17→21:22)
[2019-04-29] MEDS: tiZANidine 4 MG TABLET PO SCH ×2 (00:17→21:22)
[2019-04-29] MEDS ORDERED: *HR* OxyCODONE/APAP 5/325 TABLET PO ONE (02:23)
[2019-04-29] MEDS: *HR* OxyCODONE/APAP 10/325 TABLET PO PRN ×5 (04:02→21:22)
[2019-04-29] MEDS: Ertapenem 1,000 MG in 0.9 % Sodium Chloride Mini Bag 100 ML IVPB SCH (08:15)
[2019-04-29] MEDS: *HR* Metformin 500 MG TABLET PO SCH ×2 (08:15→17:01)
[2019-04-29] MEDS: Sucralfate 1 GM TABLET PO SCH ×4 (08:15→21:22)
[2019-04-29] MEDS: Gabapentin 100 MG CAPSULE PO SCH (08:15)
[2019-04-29] MEDS: Metoprolol XL (24 HR) Succ 50 MG TAB.ER.24H PO SCH (08:15)
[2019-04-29] MEDS: GlipiZIDE 5 MG TABLET PO SCH (12:36)
[2019-04-29] MEDS: Folic Acid 1 MG TABLET PO SCH (12:36)
[2019-04-29] MEDS: predniSONE 5 MG TABLET PO SCH (12:37)
[2019-04-29] MEDS: LEFLUNOMIDE 20 MG PO SCH (12:45)
[2019-04-29 19:57] LABS: Bilirubin,Urine Negative (Negative); Blood,Urine Negative (Negative); Clarity,Urine Slightly Cloudy (Clear); Color,Urine Yellow (Yellow); Glucose,Urine (UA) Normal (Normal); Ketones,Urine Negative (Negative); Leukocyte Esterase,Urine Negative (Negative); Nitrite,Urine Negative (Negative); Protein,Urine Negative (Neg-Trace); Urobilinogen,Urine Normal (Normal)
[2019-04-30] MEDS: Metoprolol XL (24 HR) Succ 50 MG TAB.ER.24H PO SCH (07:51)
[2019-04-30] MEDS: *HR* OxyCODONE/APAP 10/325 TABLET PO PRN ×4 (07:51→21:50)
[2019-04-30] MEDS: Ertapenem 1,000 MG in 0.9 % Sodium Chloride Mini Bag 100 ML IVPB SCH (07:52)
[2019-04-30] MEDS: Gabapentin 100 MG CAPSULE PO SCH (07:52)
[2019-04-30] MEDS: *HR* Metformin 500 MG TABLET PO SCH ×2 (07:52→17:02)
[2019-04-30] MEDS: Sucralfate 1 GM TABLET PO SCH ×4 (07:52→21:50)
[2019-04-30] MEDS: Folic Acid 1 MG TABLET PO SCH (12:28)
[2019-04-30] MEDS: predniSONE 5 MG TABLET PO SCH (12:28)
[2019-04-30] MEDS: GlipiZIDE 5 MG TABLET PO SCH (12:29)
[2019-04-30] MEDS: LEFLUNOMIDE 20 MG PO SCH (12:29)
[2019-04-30 14:00] LABS: eGFR For African Americans > 60 (> 60); eGFR For Non-African Americans > 60 (> 60)
[2019-04-30] MEDS: Gabapentin 300 MG CAPSULE PO SCH (21:50)
[2019-04-30] MEDS: tiZANidine 4 MG TABLET PO SCH (21:50)
[2019-05-01] MEDS: *HR* OxyCODONE/APAP 10/325 TABLET PO PRN ×4 (02:29→18:10)
[2019-05-01 05:58] LABS: Basophils % 0.2 %; Eosinophils # 0.2 K/mcL (0.0-0.6); Hematocrit 28.4 % (35.3-44.9); Hemoglobin 8.7 g/dL (11.5-15.4); Immature Granulocytes % 0.7 % (0-4); Lymphocytes # 1.1 K/mcL (0.6-4.6); Lymphocytes % 19.5 %; Mean Corpuscular HGB Conc 30.6 g/dL (31.6-35.5); Mean Corpuscular Hemoglobin 28.6 pg (28.0-33.3); Mean Corpuscular Volume 93.4 fL (83.0-100.0); Monocytes # 0.6 K/mcL (0.0-1.3); Monocytes % 10.7 %; Neutrophils # 3.8 K/mcL (1.6-8.9); Platelet Count 166 K/mcL (140-400); Red Blood Count 3.04 M/mcL (3.82-4.97); Segmented Neutrophils % 65.9 %; White Blood Count 5.7 K/mcL (4.3-11.1)
[2019-05-01 06:11] LABS: BUN/Creatinine Ratio 24 (6-26); Blood Urea Nitrogen 14 mg/dL (8-23); Calcium 8.2 mg/dL (8.6-10.3); Carbon Dioxide 28 mEq/L (23-29); Chloride 106 mEq/L (98-107); Glucose 176 mg/dL (70-105); Osmolality,Calculated 293 (280-300); Potassium 3.8 mEq/L (3.5-5.1); Sodium 139 mEq/L (136-145); eGFR For African Americans > 60 (> 60); eGFR For Non-African Americans > 60 (> 60)
[2019-05-01] MEDS: *HR* Metformin 500 MG TABLET PO SCH ×2 (08:11→16:38)
[2019-05-01] MEDS: Sucralfate 1 GM TABLET PO SCH ×4 (08:11→19:58)
[2019-05-01] MEDS: Metoprolol XL (24 HR) Succ 50 MG TAB.ER.24H PO SCH (08:11)
[2019-05-01] MEDS: Ertapenem 1,000 MG in 0.9 % Sodium Chloride Mini Bag 100 ML IVPB SCH (08:11)
[2019-05-01] MEDS: Gabapentin 100 MG CAPSULE PO SCH (08:11)
[2019-05-01] MEDS: (Dulaglutide [Trulicity] 0.5 ML) SQ SCH (08:15)
[2019-05-01] MEDS ORDERED: USTEKINUMAB 90 MG SQ SCH (09:00)
[2019-05-01] MEDS: LEFLUNOMIDE 20 MG PO SCH (11:42)
[2019-05-01] MEDS: predniSONE 5 MG TABLET PO SCH (11:42)
[2019-05-01] MEDS: Folic Acid 1 MG TABLET PO SCH (11:42)
[2019-05-01 13:23] LABS: C-Reactive Protein 32 mg/L (Less than 10)
[2019-05-01] MEDS: Gabapentin 300 MG CAPSULE PO SCH (19:56)
[2019-05-01] MEDS: tiZANidine 4 MG TABLET PO SCH (19:56)
[2019-05-02] MEDS: *HR* OxyCODONE/APAP 10/325 TABLET PO PRN ×5 (02:08→21:47)
[2019-05-02] MEDS: Sucralfate 1 GM TABLET PO SCH ×4 (06:15→21:47)
[2019-05-02] MEDS: *HR* Metformin 500 MG TABLET PO SCH ×2 (09:17→16:23)
[2019-05-02] MEDS: Gabapentin 100 MG CAPSULE PO SCH (09:17)
[2019-05-02] MEDS: Metoprolol XL (24 HR) Succ 50 MG TAB.ER.24H PO SCH (09:17)
[2019-05-02] MEDS: Ertapenem 1,000 MG in 0.9 % Sodium Chloride Mini Bag 100 ML IVPB SCH (09:17)
[2019-05-02] MEDS ORDERED: *HR* OxyCODONE Immed Rel 5 MG TABLET PO ONE (10:00)
[2019-05-02] MEDS: LEFLUNOMIDE 20 MG PO SCH (10:45)
[2019-05-02] MEDS: Folic Acid 1 MG TABLET PO SCH (11:51)
[2019-05-02] MEDS: predniSONE 5 MG TABLET PO SCH (11:51)
[2019-05-02] MEDS: Gabapentin 300 MG CAPSULE PO SCH (21:46)
[2019-05-02] MEDS: tiZANidine 4 MG TABLET PO SCH (21:48)
[2019-05-03] MEDS ORDERED: Ondansetron ODT 4 MG TAB.RAPDIS SL ONE (01:02)
[2019-05-03 01:49] LABS: Basophils % 0.7 %; Eosinophils # 0.3 K/mcL (0.0-0.6); Eosinophils % 5.1 %; Hematocrit 28.6 % (35.3-44.9); Hemoglobin 8.9 g/dL (11.5-15.4); Immature Granulocytes % 0.7 % (0-4); Lymphocytes # 1.2 K/mcL (0.6-4.6); Lymphocytes % 19.9 %; Mean Corpuscular HGB Conc 31.1 g/dL (31.6-35.5); Mean Corpuscular Hemoglobin 28.7 pg (28.0-33.3); Mean Corpuscular Volume 92.3 fL (83.0-100.0); Mean Platelet Volume 10.1 fL (9.4-12.4); Monocytes # 0.8 K/mcL (0.0-1.3); Monocytes % 12.7 %; Neutrophils # 3.7 K/mcL (1.6-8.9); Platelet Count 186 K/mcL (140-400); Red Cell Distribution Width 14.7 % (11.5-14.5); Segmented Neutrophils % 60.9 %; White Blood Count 6.1 K/mcL (4.3-11.1)
[2019-05-03 02:50] LABS: BUN/Creatinine Ratio 12 (6-26); Blood Urea Nitrogen 9 mg/dL (8-23); Calcium 8.4 mg/dL (8.6-10.3); Carbon Dioxide 27 mEq/L (23-29); Chloride 106 mEq/L (98-107); Glucose 149 mg/dL (70-105); Osmolality,Calculated 291 (280-300); Potassium 3.7 mEq/L (3.5-5.1); Sodium 140 mEq/L (136-145); eGFR For African Americans > 60 (> 60); eGFR For Non-African Americans > 60 (> 60)
[2019-05-03 04:08] LABS: Albumin/Globulin Ratio 1.3 (1.1-2.2); Bilirubin,Direct 0.1 mg/dL (0.0-0.2); Bilirubin,Indirect 0.4 mg/dL (0.0-1.0); Bilirubin,Total 0.5 mg/dL (0.3-1.0); Globulin 2.4 g/dL (2.4-3.5); Total Protein 5.4 g/dL (6.4-8.9)
[2019-05-03] MEDS ORDERED: 0.9 % Sodium Chloride 250 ML ONE (04:11)
[2019-05-03] MEDS: *HR* OxyCODONE/APAP 10/325 TABLET PO PRN ×4 (04:28→20:39)
[2019-05-03] MEDS: Metoprolol XL (24 HR) Succ 50 MG TAB.ER.24H PO SCH (07:57)
[2019-05-03] MEDS: Gabapentin 100 MG CAPSULE PO SCH (07:57)
[2019-05-03] MEDS: Sucralfate 1 GM TABLET PO SCH ×4 (07:57→20:39)
[2019-05-03] MEDS: Ertapenem 1,000 MG in 0.9 % Sodium Chloride Mini Bag 100 ML IVPB SCH (07:58)
[2019-05-03] MEDS: LEFLUNOMIDE 20 MG PO SCH (07:58)
[2019-05-03] MEDS: *HR* Metformin 500 MG TABLET PO SCH ×2 (07:58→15:55)
[2019-05-03] MEDS: predniSONE 5 MG TABLET PO SCH (11:50)
[2019-05-03] MEDS: Folic Acid 1 MG TABLET PO SCH (11:50)
[2019-05-03] MEDS: Gabapentin 300 MG CAPSULE PO SCH (20:39)
[2019-05-03] MEDS: tiZANidine 4 MG TABLET PO SCH (20:40)
[2019-05-04] MEDS: *HR* OxyCODONE/APAP 10/325 TABLET PO PRN ×4 (01:15→17:31)
[2019-05-04] MEDS: Gabapentin 100 MG CAPSULE PO SCH (10:37)
[2019-05-04] MEDS: Metoprolol XL (24 HR) Succ 50 MG TAB.ER.24H PO SCH (10:37)
[2019-05-04] MEDS: Sucralfate 1 GM TABLET PO SCH ×4 (10:37→20:50)
[2019-05-04] MEDS: *HR* Metformin 500 MG TABLET PO SCH ×2 (10:38→17:22)
[2019-05-04] MEDS: Ertapenem 1,000 MG in 0.9 % Sodium Chloride Mini Bag 100 ML IVPB SCH (10:38)
[2019-05-04] MEDS: predniSONE 5 MG TABLET PO SCH (12:16)
[2019-05-04] MEDS: LEFLUNOMIDE 20 MG PO SCH (12:16)
[2019-05-04] MEDS: Folic Acid 1 MG TABLET PO SCH (12:16)
[2019-05-04] MEDS: *HR* Enoxaparin 40 MG/0.4 ML SYRINGE SQ SCH (20:49)
[2019-05-04] MEDS: tiZANidine 4 MG TABLET PO SCH (20:50)
[2019-05-04] MEDS: Gabapentin 300 MG CAPSULE PO SCH (20:50)
[2019-05-05] MEDS: *HR* OxyCODONE/APAP 10/325 TABLET PO PRN ×4 (03:06→19:54)
[2019-05-05 05:59] LABS: eGFR For African Americans > 60 (> 60); eGFR For Non-African Americans > 60 (> 60)
[2019-05-05] MEDS: Sucralfate 1 GM TABLET PO SCH ×3 (06:56→19:57)
[2019-05-05] MEDS: *HR* Metformin 500 MG TABLET PO SCH ×2 (07:50→19:54)
[2019-05-05] MEDS: Gabapentin 100 MG CAPSULE PO SCH (07:51)
[2019-05-05] MEDS: Metoprolol XL (24 HR) Succ 50 MG TAB.ER.24H PO SCH (07:51)
[2019-05-05] MEDS: Ertapenem 1,000 MG in 0.9 % Sodium Chloride Mini Bag 100 ML IVPB SCH (07:52)
[2019-05-05] MEDS: predniSONE 5 MG TABLET PO SCH (11:56)
[2019-05-05] MEDS: Folic Acid 1 MG TABLET PO SCH (11:56)
[2019-05-05] MEDS: LEFLUNOMIDE 20 MG PO SCH (11:59)
[2019-05-05] MEDS: Gabapentin 300 MG CAPSULE PO SCH (19:54)
[2019-05-05] MEDS: tiZANidine 4 MG TABLET PO SCH (19:54)
[2019-05-05] MEDS: *HR* Enoxaparin 40 MG/0.4 ML SYRINGE SQ SCH (19:55)
[2019-05-06] MEDS: *HR* OxyCODONE/APAP 10/325 TABLET PO PRN ×5 (01:19→23:34)
[2019-05-06] MEDS: Sucralfate 1 GM TABLET PO SCH ×4 (06:09→22:34)
[2019-05-06 06:21] LABS: Basophils # 0.1 K/mcL (0.0-0.2); Eosinophils # 0.4 K/mcL (0.0-0.6); Eosinophils % 8.8 %; Hematocrit 26.3 % (35.3-44.9); Immature Granulocytes % 0.8 % (0-4); Lymphocytes # 1.6 K/mcL (0.6-4.6); Lymphocytes % 33.4 %; Mean Corpuscular HGB Conc 30.4 g/dL (31.6-35.5); Mean Corpuscular Hemoglobin 28.5 pg (28.0-33.3); Mean Corpuscular Volume 93.6 fL (83.0-100.0); Mean Platelet Volume 9.6 fL (9.4-12.4); Monocytes # 0.6 K/mcL (0.0-1.3); Monocytes % 12.7 %; Neutrophils # 2.1 K/mcL (1.6-8.9); Platelet Count 166 K/mcL (140-400); Red Blood Count 2.81 M/mcL (3.82-4.97); Red Cell Distribution Width 14.6 % (11.5-14.5); Segmented Neutrophils % 43.3 %; White Blood Count 4.8 K/mcL (4.3-11.1)
[2019-05-06 06:42] LABS: BUN/Creatinine Ratio 21 (6-26); Blood Urea Nitrogen 15 mg/dL (8-23); Carbon Dioxide 26 mEq/L (23-29); Chloride 107 mEq/L (98-107); Glucose 165 mg/dL (70-105); Osmolality,Calculated 293 (280-300); Potassium 3.4 mEq/L (3.5-5.1); Sodium 139 mEq/L (136-145); eGFR For African Americans > 60 (> 60); eGFR For Non-African Americans > 60 (> 60)
[2019-05-06] MEDS: Metoprolol XL (24 HR) Succ 50 MG TAB.ER.24H PO SCH (08:43)
[2019-05-06] MEDS: Ertapenem 1,000 MG in 0.9 % Sodium Chloride Mini Bag 100 ML IVPB SCH (08:44)
[2019-05-06] MEDS: *HR* Metformin 500 MG TABLET PO SCH ×2 (08:44→17:01)
[2019-05-06] MEDS: Gabapentin 100 MG CAPSULE PO SCH (08:44)
[2019-05-06] MEDS ORDERED: Furosemide 40 MG in 0.9 % Sodium Chloride 50 ML IV ONE (11:00)
[2019-05-06] MEDS ORDERED: Furosemide 40 MG/4 ML VIAL IVP ONE (11:00)
[2019-05-06] MEDS: predniSONE 5 MG TABLET PO SCH (11:17)
[2019-05-06] MEDS: Folic Acid 1 MG TABLET PO SCH (11:18)
[2019-05-06] MEDS: LEFLUNOMIDE 20 MG PO SCH (11:21)
[2019-05-06] MEDS: *HR* Enoxaparin 40 MG/0.4 ML SYRINGE SQ SCH (22:34)
[2019-05-06] MEDS: tiZANidine 4 MG TABLET PO SCH (22:34)
[2019-05-06] MEDS: Gabapentin 300 MG CAPSULE PO SCH (22:34)
[2019-05-07] MEDS: *HR* OxyCODONE/APAP 10/325 TABLET PO PRN ×4 (04:07→18:56)
[2019-05-07 04:38] LABS: BUN/Creatinine Ratio 22 (6-26); Blood Urea Nitrogen 15 mg/dL (8-23); Carbon Dioxide 28 mEq/L (23-29); Chloride 106 mEq/L (98-107); Glucose 143 mg/dL (70-105); Osmolality,Calculated 297 (280-300); Potassium 3.1 mEq/L (3.5-5.1); Sodium 142 mEq/L (136-145); eGFR For African Americans > 60 (> 60); eGFR For Non-African Americans > 60 (> 60)
[2019-05-07] MEDS: Sucralfate 1 GM TABLET PO SCH ×4 (09:25→21:32)
[2019-05-07] MEDS: Metoprolol XL (24 HR) Succ 50 MG TAB.ER.24H PO SCH (09:25)
[2019-05-07] MEDS: Gabapentin 100 MG CAPSULE PO SCH (09:25)
[2019-05-07] MEDS: Ertapenem 1,000 MG in 0.9 % Sodium Chloride Mini Bag 100 ML IVPB SCH (09:26)
[2019-05-07] MEDS: *HR* Metformin 500 MG TABLET PO SCH ×2 (09:26→16:38)
[2019-05-07] MEDS ORDERED: Furosemide 40 MG/4 ML VIAL IVP ONE (09:47)
[2019-05-07] MEDS: LEFLUNOMIDE 20 MG PO SCH (12:10)
[2019-05-07] MEDS: Folic Acid 1 MG TABLET PO SCH (12:31)
[2019-05-07] MEDS: predniSONE 5 MG TABLET PO SCH (12:31)
[2019-05-07] MEDS: *HR* Enoxaparin 40 MG/0.4 ML SYRINGE SQ SCH (21:32)
[2019-05-07] MEDS: Gabapentin 300 MG CAPSULE PO SCH (21:32)
[2019-05-07] MEDS: tiZANidine 4 MG TABLET PO SCH (21:32)
[2019-05-08] MEDS: *HR* OxyCODONE/APAP 10/325 TABLET PO PRN ×5 (03:24→21:09)
[2019-05-08 05:46] LABS: Basophils # 0.1 K/mcL (0.0-0.2); Basophils % 1.2 %; Eosinophils # 0.5 K/mcL (0.0-0.6); Eosinophils % 10.4 %; Hematocrit 27.3 % (35.3-44.9); Hemoglobin 8.4 g/dL (11.5-15.4); Immature Granulocytes % 0.6 % (0-4); Lymphocytes # 1.8 K/mcL (0.6-4.6); Lymphocytes % 34.7 %; Mean Corpuscular HGB Conc 30.8 g/dL (31.6-35.5); Mean Corpuscular Hemoglobin 27.8 pg (28.0-33.3); Mean Corpuscular Volume 90.4 fL (83.0-100.0); Mean Platelet Volume 9.8 fL (9.4-12.4); Monocytes # 0.7 K/mcL (0.0-1.3); Monocytes % 14.3 %; Platelet Count 184 K/mcL (140-400); Red Blood Count 3.02 M/mcL (3.82-4.97); Red Cell Distribution Width 14.6 % (11.5-14.5); Segmented Neutrophils % 38.8 %; White Blood Count 5.2 K/mcL (4.3-11.1)
[2019-05-08 05:58] LABS: BUN/Creatinine Ratio 21 (6-26); Blood Urea Nitrogen 13 mg/dL (8-23); Calcium 8.2 mg/dL (8.6-10.3); Carbon Dioxide 30 mEq/L (23-29); Chloride 103 mEq/L (98-107); Glucose 126 mg/dL (70-105); Osmolality,Calculated 294 (280-300); Potassium 3.4 mEq/L (3.5-5.1); Sodium 141 mEq/L (136-145); eGFR For African Americans > 60 (> 60); eGFR For Non-African Americans > 60 (> 60)
[2019-05-08] MEDS: Metoprolol XL (24 HR) Succ 50 MG TAB.ER.24H PO SCH (08:09)
[2019-05-08] MEDS: Gabapentin 100 MG CAPSULE PO SCH (08:09)
[2019-05-08] MEDS: Sucralfate 1 GM TABLET PO SCH ×4 (08:09→20:56)
[2019-05-08] MEDS: *HR* Metformin 500 MG TABLET PO SCH ×2 (08:09→17:02)
[2019-05-08] MEDS: (Dulaglutide [Trulicity] 0.5 ML) SQ SCH (08:09)
[2019-05-08] MEDS: Ertapenem 1,000 MG in 0.9 % Sodium Chloride Mini Bag 100 ML IVPB SCH (08:10)
[2019-05-08] MEDS: LEFLUNOMIDE 20 MG PO SCH (11:04)
[2019-05-08] MEDS: predniSONE 5 MG TABLET PO SCH (11:11)
[2019-05-08] MEDS: Folic Acid 1 MG TABLET PO SCH (11:11)
[2019-05-08 13:53] LABS: C-Reactive Protein 14 mg/L (Less than 10)
[2019-05-08 14:23] LABS: % Iron Saturation 7 % (15-50); Iron 25 mcg/dL (50-170); Transferrin 241 mg/dL (203-362)
[2019-05-08 14:25] LABS: Ferritin 34 ng/mL (10-120)
[2019-05-08] MEDS ORDERED: Dextrose Gel 15 GM/37.5 ML TUBE PO PRN ×2 (14:26)
[2019-05-08] MEDS ORDERED: D5% in Water 1,000 ML IVC PRN (14:26)
[2019-05-08] MEDS ORDERED: *HR* Dextrose 50 % in Water (Vial) 50 ML VIAL IVP PRN (14:26)
[2019-05-08] MEDS ORDERED: Furosemide 40 MG in 0.9 % Sodium Chloride 50 ML IV SCH (16:30)
[2019-05-08] MEDS ORDERED: Furosemide 40 MG/4 ML VIAL IVP SCH (16:30)
[2019-05-08] MEDS: *HR* Enoxaparin 40 MG/0.4 ML SYRINGE SQ SCH (20:56)
[2019-05-08] MEDS: tiZANidine 4 MG TABLET PO SCH (20:56)
[2019-05-08] MEDS: Gabapentin 300 MG CAPSULE PO SCH (20:56)
[2019-05-08] MEDS: Insulin LISPRO 300 UNITS/3 ML VIAL SQ SCH (21:15)
[2019-05-09] MEDS: *HR* OxyCODONE/APAP 10/325 TABLET PO PRN ×5 (03:25→22:30)
[2019-05-09] MEDS: Sucralfate 1 GM TABLET PO SCH ×4 (04:57→22:30)
[2019-05-09 06:01] LABS: BUN/Creatinine Ratio 18 (6-26); Blood Urea Nitrogen 13 mg/dL (8-23); Calcium 8.1 mg/dL (8.6-10.3); Carbon Dioxide 30 mEq/L (23-29); Chloride 101 mEq/L (98-107); Glucose 151 mg/dL (70-105); Osmolality,Calculated 291 (280-300); Potassium 3.4 mEq/L (3.5-5.1); Sodium 139 mEq/L (136-145); eGFR For African Americans > 60 (> 60); eGFR For Non-African Americans > 60 (> 60)
[2019-05-09] MEDS: Gabapentin 100 MG CAPSULE PO SCH (08:04)
[2019-05-09] MEDS: Ertapenem 1,000 MG in 0.9 % Sodium Chloride Mini Bag 100 ML IVPB SCH (08:04)
[2019-05-09] MEDS: Metoprolol XL (24 HR) Succ 50 MG TAB.ER.24H PO SCH (08:04)
[2019-05-09] MEDS: *HR* Metformin 500 MG TABLET PO SCH ×2 (08:04→16:47)
[2019-05-09] MEDS: LEFLUNOMIDE 20 MG PO SCH (11:50)
[2019-05-09] MEDS: predniSONE 5 MG TABLET PO SCH (12:00)
[2019-05-09] MEDS: Folic Acid 1 MG TABLET PO SCH (12:00)
[2019-05-09] MEDS: Furosemide 40 MG/4 ML VIAL IVP SCH ×2 (15:27)
[2019-05-09] MEDS: Insulin LISPRO 300 UNITS/3 ML VIAL SQ SCH (22:28)
[2019-05-09] MEDS: *HR* Enoxaparin 40 MG/0.4 ML SYRINGE SQ SCH (22:29)
[2019-05-09] MEDS: tiZANidine 4 MG TABLET PO SCH (22:29)
[2019-05-09] MEDS: Gabapentin 300 MG CAPSULE PO SCH (22:30)
[2019-05-10] MEDS: Sucralfate 1 GM TABLET PO SCH ×4 (05:55→20:44)
[2019-05-10] MEDS: *HR* OxyCODONE/APAP 10/325 TABLET PO PRN ×3 (05:55→20:45)
[2019-05-10 06:12] LABS: Alanine Aminotransferase 17 Units/L (7-52); Albumin 3.1 g/dL (3.5-5.7); Albumin/Globulin Ratio 1.4 (1.1-2.2); Alkaline Phosphatase 100 Units/L (34-104); Aspartate Amino Transferase 17 Units/L (13-39); BUN/Creatinine Ratio 17 (6-26); Bilirubin,Total 0.5 mg/dL (0.3-1.0); Blood Urea Nitrogen 14 mg/dL (8-23); Calcium 8.4 mg/dL (8.6-10.3); Carbon Dioxide 30 mEq/L (23-29); Chloride 103 mEq/L (98-107); Globulin 2.2 g/dL (2.4-3.5); Glucose 156 mg/dL (70-105); Magnesium 1.1 mg/dL (1.6-2.6); Osmolality,Calculated 294 (280-300); Potassium 4.2 mEq/L (3.5-5.1); Sodium 140 mEq/L (136-145); Total Protein 5.3 g/dL (6.4-8.9); eGFR For African Americans > 60 (> 60); eGFR For Non-African Americans > 60 (> 60)
[2019-05-10] MEDS: Gabapentin 100 MG CAPSULE PO SCH (08:12)
[2019-05-10] MEDS: *HR* Metformin 500 MG TABLET PO SCH ×2 (08:12→16:51)
[2019-05-10] MEDS: Metoprolol XL (24 HR) Succ 50 MG TAB.ER.24H PO SCH (08:12)
[2019-05-10] MEDS: Ertapenem 1,000 MG in 0.9 % Sodium Chloride Mini Bag 100 ML IVPB SCH (08:16)
[2019-05-10] MEDS: LEFLUNOMIDE 20 MG PO SCH (11:18)
[2019-05-10] MEDS: Folic Acid 1 MG TABLET PO SCH (11:44)
[2019-05-10] MEDS: predniSONE 5 MG TABLET PO SCH (11:45)
[2019-05-10] MEDS: Magnesium Oxide 400 MG TABLET PO SCH (20:44)
[2019-05-10] MEDS: tiZANidine 4 MG TABLET PO SCH (20:44)
[2019-05-10] MEDS: Gabapentin 300 MG CAPSULE PO SCH (20:44)
[2019-05-10] MEDS: *HR* Enoxaparin 40 MG/0.4 ML SYRINGE SQ SCH (20:45)
[2019-05-10] MEDS: Insulin LISPRO 300 UNITS/3 ML VIAL SQ SCH (20:51)
[2019-05-11] MEDS: Sucralfate 1 GM TABLET PO SCH ×4 (05:57→22:13)
[2019-05-11 06:11] LABS: VBG Ionized Calcium 0.94 mmol/L (1.15-1.35)
[2019-05-11] MEDS: *HR* Metformin 500 MG TABLET PO SCH ×2 (09:52→16:58)
[2019-05-11] MEDS: Gabapentin 100 MG CAPSULE PO SCH (09:52)
[2019-05-11] MEDS: Metoprolol XL (24 HR) Succ 50 MG TAB.ER.24H PO SCH (09:53)
[2019-05-11] MEDS: *HR* OxyCODONE/APAP 10/325 TABLET PO PRN ×4 (09:53→22:15)
[2019-05-11] MEDS: Multivit/Ca/Min/Fe/FA 1 TAB TABLET PO SCH (09:53)
[2019-05-11] MEDS: Magnesium Oxide 400 MG TABLET PO SCH ×2 (09:53→22:11)
[2019-05-11] MEDS: Ertapenem 1,000 MG in 0.9 % Sodium Chloride Mini Bag 100 ML IVPB SCH (09:54)
[2019-05-11] MEDS: predniSONE 5 MG TABLET PO SCH (12:17)
[2019-05-11] MEDS: LEFLUNOMIDE 20 MG PO SCH (12:17)
[2019-05-11] MEDS: Folic Acid 1 MG TABLET PO SCH (12:17)
[2019-05-11] MEDS ORDERED: Furosemide 40 MG in 0.9 % Sodium Chloride 50 ML IV ONE (15:15)
[2019-05-11] MEDS ORDERED: Furosemide 40 MG/4 ML VIAL IVP ONE (16:13)
[2019-05-11] MEDS: Gabapentin 300 MG CAPSULE PO SCH (22:11)
[2019-05-11] MEDS: *HR* Enoxaparin 40 MG/0.4 ML SYRINGE SQ SCH (22:11)
[2019-05-11] MEDS: tiZANidine 4 MG TABLET PO SCH (22:12)
[2019-05-11] MEDS: Insulin LISPRO 300 UNITS/3 ML VIAL SQ SCH (22:15)
[2019-05-12 05:07] LABS: Basophils # 0.1 K/mcL (0.0-0.2); Basophils % 1.2 %; Eosinophils # 0.8 K/mcL (0.0-0.6); Eosinophils % 12.9 %; Hematocrit 29.8 % (35.3-44.9); Hemoglobin 9.2 g/dL (11.5-15.4); Immature Granulocytes % 0.7 % (0-4); Lymphocytes % 33.3 %; Mean Corpuscular HGB Conc 30.9 g/dL (31.6-35.5); Mean Corpuscular Hemoglobin 28.3 pg (28.0-33.3); Mean Corpuscular Volume 91.7 fL (83.0-100.0); Mean Platelet Volume 9.7 fL (9.4-12.4); Monocytes # 0.8 K/mcL (0.0-1.3); Monocytes % 12.9 %; Neutrophils # 2.3 K/mcL (1.6-8.9); Platelet Count 207 K/mcL (140-400); Red Blood Count 3.25 M/mcL (3.82-4.97); Red Cell Distribution Width 14.6 % (11.5-14.5); White Blood Count 5.9 K/mcL (4.3-11.1)
[2019-05-12 05:44] LABS: Alanine Aminotransferase 15 Units/L (7-52); Albumin 3.4 g/dL (3.5-5.7); Albumin/Globulin Ratio 1.5 (1.1-2.2); Alkaline Phosphatase 97 Units/L (34-104); Aspartate Amino Transferase 17 Units/L (13-39); BUN/Creatinine Ratio 19 (6-26); Bilirubin,Total 0.4 mg/dL (0.3-1.0); Blood Urea Nitrogen 16 mg/dL (8-23); Carbon Dioxide 28 mEq/L (23-29); Chloride 101 mEq/L (98-107); Globulin 2.2 g/dL (2.4-3.5); Glucose 166 mg/dL (70-105); Magnesium 1.3 mg/dL (1.6-2.6); Osmolality,Calculated 289 (280-300); Potassium 4.8 mEq/L (3.5-5.1); Sodium 137 mEq/L (136-145); Total Protein 5.6 g/dL (6.4-8.9); eGFR For African Americans > 60 (> 60); eGFR For Non-African Americans > 60 (> 60)
[2019-05-12] MEDS: Sucralfate 1 GM TABLET PO SCH ×4 (06:57→20:29)
[2019-05-12] MEDS: *HR* OxyCODONE/APAP 10/325 TABLET PO PRN ×3 (06:58→17:04)
[2019-05-12] MEDS: Magnesium Oxide 400 MG TABLET PO SCH ×2 (08:22→20:28)
[2019-05-12] MEDS: Metoprolol XL (24 HR) Succ 50 MG TAB.ER.24H PO SCH (08:23)
[2019-05-12] MEDS: Multivit/Ca/Min/Fe/FA 1 TAB TABLET PO SCH (08:23)
[2019-05-12] MEDS: Gabapentin 100 MG CAPSULE PO SCH (08:24)
[2019-05-12] MEDS: *HR* Metformin 500 MG TABLET PO SCH ×2 (08:25→17:05)
[2019-05-12] MEDS: Ertapenem 1,000 MG in 0.9 % Sodium Chloride Mini Bag 100 ML IVPB SCH (08:44)
[2019-05-12] MEDS: Folic Acid 1 MG TABLET PO SCH (11:56)
[2019-05-12] MEDS: predniSONE 5 MG TABLET PO SCH (11:56)
[2019-05-12] MEDS: LEFLUNOMIDE 20 MG PO SCH (11:56)
[2019-05-12] MEDS: *HR* Enoxaparin 40 MG/0.4 ML SYRINGE SQ SCH (20:27)
[2019-05-12] MEDS: tiZANidine 4 MG TABLET PO SCH (20:28)
[2019-05-12] MEDS: Gabapentin 300 MG CAPSULE PO SCH (20:28)
[2019-05-12] MEDS: Insulin LISPRO 300 UNITS/3 ML VIAL SQ SCH (20:29)
[2019-05-13] MEDS: *HR* OxyCODONE/APAP 10/325 TABLET PO PRN ×4 (06:55→21:39)
[2019-05-13] MEDS: Sucralfate 1 GM TABLET PO SCH ×4 (06:55→21:40)
[2019-05-13] MEDS: Metoprolol XL (24 HR) Succ 50 MG TAB.ER.24H PO SCH (08:26)
[2019-05-13] MEDS: Gabapentin 100 MG CAPSULE PO SCH (08:27)
[2019-05-13] MEDS: *HR* Metformin 500 MG TABLET PO SCH ×2 (08:27→17:28)
[2019-05-13] MEDS: Multivit/Ca/Min/Fe/FA 1 TAB TABLET PO SCH (08:28)
[2019-05-13] MEDS: Magnesium Oxide 400 MG TABLET PO SCH ×2 (08:28→21:39)
[2019-05-13] MEDS: Ertapenem 1,000 MG in 0.9 % Sodium Chloride Mini Bag 100 ML IVPB SCH (09:04)
[2019-05-13] MEDS: predniSONE 5 MG TABLET PO SCH (12:40)
[2019-05-13] MEDS: Folic Acid 1 MG TABLET PO SCH (12:40)
[2019-05-13] MEDS: LEFLUNOMIDE 20 MG PO SCH (19:09)
[2019-05-13] MEDS: Insulin LISPRO 300 UNITS/3 ML VIAL SQ SCH (20:19)
[2019-05-13] MEDS: *HR* Enoxaparin 40 MG/0.4 ML SYRINGE SQ SCH (21:38)
[2019-05-13] MEDS: tiZANidine 4 MG TABLET PO SCH (21:40)
[2019-05-13] MEDS: Gabapentin 300 MG CAPSULE PO SCH (21:40)
[2019-05-14] MEDS: *HR* OxyCODONE/APAP 10/325 TABLET PO PRN ×3 (05:19→21:37)
[2019-05-14] MEDS: Metoprolol XL (24 HR) Succ 50 MG TAB.ER.24H PO SCH (08:21)
[2019-05-14] MEDS: Multivit/Ca/Min/Fe/FA 1 TAB TABLET PO SCH (08:21)
[2019-05-14] MEDS: Magnesium Oxide 400 MG TABLET PO SCH ×2 (08:21→21:40)
[2019-05-14] MEDS: Gabapentin 100 MG CAPSULE PO SCH (08:21)
[2019-05-14] MEDS: Ertapenem 1,000 MG in 0.9 % Sodium Chloride Mini Bag 100 ML IVPB SCH (08:22)
[2019-05-14] MEDS: *HR* Metformin 500 MG TABLET PO SCH ×2 (08:22→17:26)
[2019-05-14] MEDS: Sucralfate 1 GM TABLET PO SCH ×4 (09:04→21:40)
[2019-05-14] MEDS: Folic Acid 1 MG TABLET PO SCH (12:38)
[2019-05-14] MEDS: predniSONE 5 MG TABLET PO SCH (12:38)
[2019-05-14] MEDS: LEFLUNOMIDE 20 MG PO SCH (12:40)
[2019-05-14] MEDS: Insulin LISPRO 300 UNITS/3 ML VIAL SQ SCH (21:03)
[2019-05-14] MEDS: tiZANidine 4 MG TABLET PO SCH (21:37)
[2019-05-14] MEDS: Gabapentin 300 MG CAPSULE PO SCH (21:37)
[2019-05-14] MEDS: *HR* Enoxaparin 40 MG/0.4 ML SYRINGE SQ SCH (21:39)
[2019-05-15] MEDS: *HR* OxyCODONE/APAP 10/325 TABLET PO PRN ×4 (06:05→21:05)
[2019-05-15 06:42] LABS: Basophils # 0.1 K/mcL (0.0-0.2); Basophils % 1.4 %; Eosinophils # 0.9 K/mcL (0.0-0.6); Eosinophils % 14.7 %; Hematocrit 27.8 % (35.3-44.9); Hemoglobin 8.5 g/dL (11.5-15.4); Immature Granulocytes % 0.7 % (0-4); Lymphocytes # 1.9 K/mcL (0.6-4.6); Lymphocytes % 31.8 %; Mean Corpuscular HGB Conc 30.6 g/dL (31.6-35.5); Mean Corpuscular Hemoglobin 28.1 pg (28.0-33.3); Mean Corpuscular Volume 92.1 fL (83.0-100.0); Mean Platelet Volume 9.9 fL (9.4-12.4); Monocytes # 0.8 K/mcL (0.0-1.3); Monocytes % 13.8 %; Neutrophils # 2.2 K/mcL (1.6-8.9); Platelet Count 227 K/mcL (140-400); Red Blood Count 3.02 M/mcL (3.82-4.97); Red Cell Distribution Width 14.8 % (11.5-14.5); Segmented Neutrophils % 37.6 %; White Blood Count 5.9 K/mcL (4.3-11.1)
[2019-05-15 06:57] LABS: Alanine Aminotransferase 14 Units/L (7-52); Albumin 3.2 g/dL (3.5-5.7); Albumin/Globulin Ratio 1.7 (1.1-2.2); Alkaline Phosphatase 96 Units/L (34-104); Aspartate Amino Transferase 16 Units/L (13-39); BUN/Creatinine Ratio 21 (6-26); Bilirubin,Total 0.4 mg/dL (0.3-1.0); Blood Urea Nitrogen 15 mg/dL (8-23); Calcium 8.3 mg/dL (8.6-10.3); Carbon Dioxide 27 mEq/L (23-29); Chloride 106 mEq/L (98-107); Globulin 1.9 g/dL (2.4-3.5); Glucose 150 mg/dL (70-105); Magnesium 1.7 mg/dL (1.6-2.6); Osmolality,Calculated 292 (280-300); Sodium 139 mEq/L (136-145); Total Protein 5.1 g/dL (6.4-8.9); eGFR For African Americans > 60 (> 60); eGFR For Non-African Americans > 60 (> 60)
[2019-05-15] MEDS: Metoprolol XL (24 HR) Succ 50 MG TAB.ER.24H PO SCH (08:33)
[2019-05-15] MEDS: *HR* Metformin 500 MG TABLET PO SCH ×2 (08:33→17:02)
[2019-05-15] MEDS: Multivit/Ca/Min/Fe/FA 1 TAB TABLET PO SCH (08:33)
[2019-05-15] MEDS: Gabapentin 100 MG CAPSULE PO SCH (08:33)
[2019-05-15] MEDS: Ertapenem 1,000 MG in 0.9 % Sodium Chloride Mini Bag 100 ML IVPB SCH (08:34)
[2019-05-15] MEDS: Magnesium Oxide 400 MG TABLET PO SCH ×2 (08:36→21:05)
[2019-05-15] MEDS: Sucralfate 1 GM TABLET PO SCH ×4 (08:36→21:06)
[2019-05-15] MEDS: (Dulaglutide [Trulicity] 0.5 ML) SQ SCH (08:47)
[2019-05-15] MEDS: predniSONE 5 MG TABLET PO SCH (12:01)
[2019-05-15] MEDS: Folic Acid 1 MG TABLET PO SCH (12:01)
[2019-05-15] MEDS: LEFLUNOMIDE 20 MG PO SCH (12:02)
[2019-05-15] MEDS: Loratadine 10 MG TABLET PO SCH (14:48)
[2019-05-15] MEDS: Insulin LISPRO 300 UNITS/3 ML VIAL SQ SCH (20:34)
[2019-05-15] MEDS: *HR* Enoxaparin 40 MG/0.4 ML SYRINGE SQ SCH (21:04)
[2019-05-15] MEDS: tiZANidine 4 MG TABLET PO SCH (21:05)
[2019-05-15] MEDS: Gabapentin 300 MG CAPSULE PO SCH (21:05)
[2019-05-16] MEDS: *HR* OxyCODONE/APAP 10/325 TABLET PO PRN ×4 (06:47→20:38)
[2019-05-16] MEDS: Sucralfate 1 GM TABLET PO SCH ×4 (07:16→20:40)
[2019-05-16] MEDS: *HR* Metformin 500 MG TABLET PO SCH ×2 (08:51→17:36)
[2019-05-16] MEDS: Loratadine 10 MG TABLET PO SCH (08:51)
[2019-05-16] MEDS: Metoprolol XL (24 HR) Succ 50 MG TAB.ER.24H PO SCH (08:51)
[2019-05-16] MEDS: Multivit/Ca/Min/Fe/FA 1 TAB TABLET PO SCH (08:51)
[2019-05-16] MEDS: Gabapentin 100 MG CAPSULE PO SCH (08:51)
[2019-05-16] MEDS: Magnesium Oxide 400 MG TABLET PO SCH ×2 (08:51→20:39)
[2019-05-16] MEDS: Ertapenem 1,000 MG in 0.9 % Sodium Chloride Mini Bag 100 ML IVPB SCH (08:53)
[2019-05-16] MEDS: Folic Acid 1 MG TABLET PO SCH (11:54)
[2019-05-16] MEDS: predniSONE 5 MG TABLET PO SCH (11:54)
[2019-05-16] MEDS ORDERED: Furosemide 40 MG TABLET PO ONE (12:22)
[2019-05-16] MEDS: tiZANidine 4 MG TABLET PO SCH (20:38)
[2019-05-16] MEDS: Gabapentin 300 MG CAPSULE PO SCH (20:39)
[2019-05-16] MEDS: *HR* Enoxaparin 40 MG/0.4 ML SYRINGE SQ SCH (20:39)
[2019-05-16] MEDS: Insulin LISPRO 300 UNITS/3 ML VIAL SQ SCH (20:41)
[2019-05-17] MEDS: *HR* OxyCODONE/APAP 10/325 TABLET PO PRN ×4 (00:35→18:29)
[2019-05-17 06:58] LABS: Alanine Aminotransferase 16 Units/L (7-52); Albumin 3.6 g/dL (3.5-5.7); Albumin/Globulin Ratio 1.6 (1.1-2.2); Alkaline Phosphatase 105 Units/L (34-104); Aspartate Amino Transferase 20 Units/L (13-39); BUN/Creatinine Ratio 12 (6-26); Bilirubin,Total 0.5 mg/dL (0.3-1.0); Blood Urea Nitrogen 10 mg/dL (8-23); Calcium 8.8 mg/dL (8.6-10.3); Carbon Dioxide 30 mEq/L (23-29); Chloride 101 mEq/L (98-107); Globulin 2.2 g/dL (2.4-3.5); Glucose 110 mg/dL (70-105); Magnesium 1.7 mg/dL (1.6-2.6); Osmolality,Calculated 286 (280-300); Potassium 3.6 mEq/L (3.5-5.1); Sodium 138 mEq/L (136-145); Total Protein 5.8 g/dL (6.4-8.9); eGFR For African Americans > 60 (> 60); eGFR For Non-African Americans > 60 (> 60)
[2019-05-17] MEDS: Gabapentin 100 MG CAPSULE PO SCH (08:24)
[2019-05-17] MEDS: Sucralfate 1 GM TABLET PO SCH ×4 (08:24→21:23)
[2019-05-17] MEDS: Loratadine 10 MG TABLET PO SCH (08:24)
[2019-05-17] MEDS: Multivit/Ca/Min/Fe/FA 1 TAB TABLET PO SCH (08:24)
[2019-05-17] MEDS: *HR* Metformin 500 MG TABLET PO SCH ×2 (08:25→18:29)
[2019-05-17] MEDS: Metoprolol XL (24 HR) Succ 50 MG TAB.ER.24H PO SCH (08:25)
[2019-05-17] MEDS: Magnesium Oxide 400 MG TABLET PO SCH ×2 (08:25→19:58)
[2019-05-17] MEDS: Ertapenem 1,000 MG in 0.9 % Sodium Chloride Mini Bag 100 ML IVPB SCH (08:47)
[2019-05-17] MEDS: Folic Acid 1 MG TABLET PO SCH (11:23)
[2019-05-17] MEDS: predniSONE 5 MG TABLET PO SCH (11:23)
[2019-05-17] MEDS ORDERED: Aminoglycoside Consult 1 EACH MC ONE (16:07)
[2019-05-17] MEDS: *HR* Enoxaparin 40 MG/0.4 ML SYRINGE SQ SCH (18:32)
[2019-05-17] MEDS: Gabapentin 300 MG CAPSULE PO SCH (19:57)
[2019-05-17] MEDS: tiZANidine 4 MG TABLET PO SCH (19:58)
[2019-05-17] MEDS ORDERED: *HR* OxyCODONE/APAP 10/325 TABLET PO STA (21:11)
[2019-05-17] MEDS: Insulin LISPRO 300 UNITS/3 ML VIAL SQ SCH (21:20)
[2019-05-18] MEDS: Sucralfate 1 GM TABLET PO SCH ×2 (05:50→11:50)
[2019-05-18] MEDS: *HR* OxyCODONE/APAP 10/325 TABLET PO PRN ×3 (05:50→15:51)
[2019-05-18 07:57] VITALS: BP 122/74
[2019-05-18] MEDS: Metoprolol XL (24 HR) Succ 50 MG TAB.ER.24H PO SCH (08:43)
[2019-05-18] MEDS: *HR* Metformin 500 MG TABLET PO SCH (08:43)
[2019-05-18] MEDS: Ertapenem 1,000 MG in 0.9 % Sodium Chloride Mini Bag 100 ML IVPB SCH (08:44)
[2019-05-18] MEDS: Loratadine 10 MG TABLET PO SCH (08:44)
[2019-05-18] MEDS: Multivit/Ca/Min/Fe/FA 1 TAB TABLET PO SCH (08:44)
[2019-05-18] MEDS: Gabapentin 100 MG CAPSULE PO SCH (08:44)
[2019-05-18] MEDS: Magnesium Oxide 400 MG TABLET PO SCH (08:44)
[2019-05-18] MEDS: predniSONE 5 MG TABLET PO SCH (11:50)
[2019-05-18] MEDS: Folic Acid 1 MG TABLET PO SCH (11:50)
[2019-05-22] MEDS ORDERED: (Dulaglutide [Trulicity] 0.5 ML) SQ SCH (08:45)
[2019-05-25] MEDS ORDERED: USTEKINUMAB 90 MG SQ SCH (09:00)
== END 2019-05-18 16:08 | disposition home health service (06) | DRG 945 ==
LOC: INPGRE → OBSVTOIN 20:39
PROVIDERS: ADMIT Family Medicine; ATTEND Family Medicine

== ENCOUNTER 2020-06-01 21:07 | Inpatient (IN) ==
[2020-06-01] MEDS ORDERED: Acetaminophen 325 MG TABLET PO PRN (21:39)
[2020-06-01] MEDS ORDERED: Mag Hydrox/Al Hydrox/Simeth 30 ML UDC PO PRN (21:39)
[2020-06-01] MEDS ORDERED: MOM Conc 10 ML UD.LIQ PO PRN (21:39)
[2020-06-01] MEDS ORDERED: Ibuprofen 400 MG TABLET PO PRN (21:39)
[2020-06-01] MEDS ORDERED: Naloxone 0.4 MG/ML INJ IVP PRN (21:39)
[2020-06-01] MEDS ORDERED: SUMAtriptan succinate 25 MG TABLET PO PRN (22:31)
[2020-06-01 22:37] LABS: White Blood Count 7.3 K/mcL (4.3-11.1)
[2020-06-01 22:38] LABS: Basophils % 0.6 %; Eosinophils % 0.6 %; Hematocrit 29.4 % (35.3-44.9); Hemoglobin 9.3 g/dL (11.5-15.4); Immature Granulocytes % 0.6 % (0-4); Lymphocytes # 1.4 K/mcL (0.6-4.6); Lymphocytes % 18.6 %; Mean Corpuscular HGB Conc 31.6 g/dL (31.6-35.5); Mean Corpuscular Volume 88.6 fL (83.0-100.0); Mean Platelet Volume 10.6 fL (9.4-12.4); Monocytes # 0.6 K/mcL (0.0-1.3); Monocytes % 8.3 %; Neutrophils # 5.2 K/mcL (1.6-8.9); Platelet Count 242 K/mcL (140-400); Red Blood Count 3.32 M/mcL (3.82-4.97); Red Cell Distribution Width 15.1 % (11.5-14.5); Segmented Neutrophils % 71.3 %
[2020-06-01 22:57] LABS: Calcium 8.8 mg/dL (8.6-10.3); Potassium 4.2 mEq/L (3.5-5.1)
[2020-06-01] MEDS: Pregabalin 25 MG CAPSULE PO SCH (22:59)
[2020-06-01] MEDS: Melatonin 3 MG TABLET PO PRN (23:00)
[2020-06-01] MEDS: Ondansetron ODT 4 MG TAB.RAPDIS SL PRN (23:29)
[2020-06-02] MEDS: Ketorolac 30 MG/ML VIAL IVP PRN ×2 (01:16→21:05)
[2020-06-02] MEDS: Ertapenem 1,000 MG in 0.9 % Sodium Chloride Mini Bag 100 ML IVPB SCH ×2 (01:17→08:42)
[2020-06-02 01:50] LABS: Influenza A PCR Negative (Negative); Influenza B PCR Negative (Negative); Resp. Syncytial Virus PCR Negative (Negative)
[2020-06-02 01:51] LABS: SARS-CoV-2 by PCR (In House) Negative (Negative)
[2020-06-02] MEDS: *HR* Enoxaparin 40 MG/0.4 ML SYRINGE SQ SCH (05:31)
[2020-06-02] MEDS: *HR* OxyCODONE/APAP 10/325 TABLET PO PRN ×2 (05:38→16:31)
[2020-06-02] MEDS: Magnesium Oxide 400 MG TABLET PO SCH (08:41)
[2020-06-02] MEDS: Pregabalin 25 MG CAPSULE PO SCH ×2 (08:41→20:57)
[2020-06-02] MEDS: predniSONE 5 MG TABLET PO SCH (08:41)
[2020-06-02] MEDS: Multivit/Ca/Min/Fe/FA 1 TAB TABLET PO SCH (08:41)
[2020-06-02] MEDS: Metoprolol XL (24 HR) Succ 50 MG TAB.ER.24H PO SCH (08:42)
[2020-06-02] MEDS: Folic Acid 1 MG TABLET PO SCH (12:33)
[2020-06-03] MEDS: *HR* OxyCODONE/APAP 10/325 TABLET PO PRN ×3 (00:06→22:34)
[2020-06-03] MEDS: *HR* Enoxaparin 40 MG/0.4 ML SYRINGE SQ SCH (08:32)
[2020-06-03] MEDS: Metoprolol XL (24 HR) Succ 50 MG TAB.ER.24H PO SCH (08:33)
[2020-06-03] MEDS: Pregabalin 25 MG CAPSULE PO SCH ×2 (08:33→22:33)
[2020-06-03] MEDS: Magnesium Oxide 400 MG TABLET PO SCH (08:33)
[2020-06-03] MEDS: Multivit/Ca/Min/Fe/FA 1 TAB TABLET PO SCH (08:33)
[2020-06-03] MEDS: predniSONE 5 MG TABLET PO SCH (08:34)
[2020-06-03] MEDS: Ertapenem 1,000 MG in 0.9 % Sodium Chloride Mini Bag 100 ML IVPB SCH (08:34)
[2020-06-03] MEDS: Ketorolac 30 MG/ML VIAL IVP PRN (08:36)
[2020-06-03 09:24] LABS: Basophils % 0.5 %; Eosinophils # 0.2 K/mcL (0.0-0.6); Eosinophils % 2.4 %; Hematocrit 31.1 % (35.3-44.9); Hemoglobin 9.7 g/dL (11.5-15.4); Immature Granulocytes % 0.5 % (0-4); Lymphocytes # 1.9 K/mcL (0.6-4.6); Lymphocytes % 29.7 %; Mean Corpuscular HGB Conc 31.2 g/dL (31.6-35.5); Mean Corpuscular Hemoglobin 27.9 pg (28.0-33.3); Mean Corpuscular Volume 89.4 fL (83.0-100.0); Monocytes # 0.5 K/mcL (0.0-1.3); Monocytes % 7.8 %; Neutrophils # 3.8 K/mcL (1.6-8.9); Platelet Count 240 K/mcL (140-400); Red Blood Count 3.48 M/mcL (3.82-4.97); Red Cell Distribution Width 15.2 % (11.5-14.5); Segmented Neutrophils % 59.1 %; White Blood Count 6.4 K/mcL (4.3-11.1)
[2020-06-03 09:40] LABS: BUN/Creatinine Ratio 21 (6-26); Blood Urea Nitrogen 21 mg/dL (8-23); Calcium 8.7 mg/dL (8.6-10.3); Carbon Dioxide 26 mEq/L (23-29); Chloride 104 mEq/L (98-107); Glucose 88 mg/dL (70-105); Osmolality,Calculated 288 (280-300); Potassium 3.8 mEq/L (3.5-5.1); Sodium 138 mEq/L (136-145); eGFR For African Americans > 60 (> 60); eGFR For Non-African Americans 55 (> 60)
[2020-06-03 14:52] LABS: Estimated Average Glucose 157 mg/dl; Hemoglobin A1C 7.1 %
[2020-06-03] MEDS ORDERED: Ketorolac 30 MG/ML VIAL IVP PRN (15:29)
[2020-06-03] MEDS: Ondansetron ODT 4 MG TAB.RAPDIS SL PRN (17:42)
[2020-06-03] MEDS: Melatonin 3 MG TABLET PO PRN (22:34)
[2020-06-04] MEDS: *HR* Enoxaparin 40 MG/0.4 ML SYRINGE SQ SCH (06:43)
[2020-06-04 08:14] LABS: % Iron Saturation 10 % (15-50); Iron 35 mcg/dL (50-170); Transferrin 262 mg/dL (203-362)
[2020-06-04] MEDS: Folic Acid 1 MG TABLET PO SCH ×2 (09:26→15:20)
[2020-06-04] MEDS: Magnesium Oxide 400 MG TABLET PO SCH (10:24)
[2020-06-04] MEDS: Multivit/Ca/Min/Fe/FA 1 TAB TABLET PO SCH (10:24)
[2020-06-04] MEDS: Metoprolol XL (24 HR) Succ 50 MG TAB.ER.24H PO SCH (10:25)
[2020-06-04] MEDS: Ertapenem 1,000 MG in 0.9 % Sodium Chloride Mini Bag 100 ML IVPB SCH (10:25)
[2020-06-04] MEDS: Pregabalin 25 MG CAPSULE PO SCH ×2 (10:25→19:54)
[2020-06-04] MEDS: predniSONE 5 MG TABLET PO SCH (10:25)
[2020-06-04] MEDS: *HR* OxyCODONE/APAP 10/325 TABLET PO PRN ×2 (15:20→19:55)
[2020-06-04] MEDS ORDERED: Iron Sucrose Complex 200 MG in 0.9 % Sodium Chloride 100 ML IVPB SCH (18:00)
[2020-06-05] MEDS: *HR* Enoxaparin 40 MG/0.4 ML SYRINGE SQ SCH (06:06)
[2020-06-05] MEDS: *HR* OxyCODONE/APAP 10/325 TABLET PO PRN (06:10)
[2020-06-05] MEDS: Magnesium Oxide 400 MG TABLET PO SCH (09:59)
[2020-06-05] MEDS: Multivit/Ca/Min/Fe/FA 1 TAB TABLET PO SCH (09:59)
[2020-06-05] MEDS: Pregabalin 25 MG CAPSULE PO SCH (09:59)
[2020-06-05] MEDS: Ertapenem 1,000 MG in 0.9 % Sodium Chloride Mini Bag 100 ML IVPB SCH (10:00)
[2020-06-05] MEDS: Metoprolol XL (24 HR) Succ 50 MG TAB.ER.24H PO SCH (10:00)
[2020-06-05] MEDS: predniSONE 5 MG TABLET PO SCH (10:00)
[2020-06-05 11:40] VITALS: BP 135/82
[2020-06-05] MEDS: Folic Acid 1 MG TABLET PO SCH (12:53)
== END 2020-06-05 16:09 | disposition home or self-care (01) | DRG 690 ==
LOC: INPGRE 21:07
PROVIDERS: ADMIT Family Medicine; ATTEND Family Medicine

== ENCOUNTER 2021-04-18 15:46 | Observation (INO) ==
[2021-04-18 16:22] LABS: Basophils % 0.4 %; Eosinophils # 0.6 K/mcL (0.0-0.6); Eosinophils % 8.1 %; Hematocrit 26.4 % (35.3-44.9); Hemoglobin 7.8 g/dL (11.5-15.4); Immature Granulocytes % 0.6 % (0-4); Lymphocytes # 1.5 K/mcL (0.6-4.6); Lymphocytes % 21.2 %; Mean Corpuscular HGB Conc 29.5 g/dL (31.6-35.5); Mean Corpuscular Hemoglobin 22.2 pg (28.0-33.3); Mean Corpuscular Volume 75.2 fL (83.0-100.0); Monocytes # 0.6 K/mcL (0.0-1.3); Monocytes % 8.4 %; Neutrophils # 4.5 K/mcL (1.6-8.9); Platelet Count 302 K/mcL (140-400); Red Blood Count 3.51 M/mcL (3.82-4.97); Red Cell Distribution Width 15.3 % (11.5-14.5); Segmented Neutrophils % 61.3 %; White Blood Count 7.3 K/mcL (4.3-11.1)
[2021-04-18] MEDS ORDERED: 0.9 % Sodium Chloride 1,000 ML IV ONE (16:26)
[2021-04-18] MEDS ORDERED: Insulin Human Regular 10 UNIT in 0.9 % Sodium Chloride 10 ML IV ONE ×2 (16:26→17:00)
[2021-04-18 16:37] LABS: Magnesium 1.9 mg/dL (1.6-2.6); Phosphorous 3.1 mg/dL (2.7-4.5)
[2021-04-18 16:38] LABS: Alanine Aminotransferase 19 Units/L (7-52); Albumin 3.7 g/dL (3.5-5.7); Albumin/Globulin Ratio 1.5 (1.1-2.2); Alkaline Phosphatase 127 Units/L (34-104); Amylase 21 Units/L (29-103); Aspartate Amino Transferase 19 Units/L (13-39); BUN/Creatinine Ratio 19 (6-26); Bilirubin,Total 0.3 mg/dL (0.3-1.0); Blood Urea Nitrogen 16 mg/dL (8-23); Calcium 9.5 mg/dL (8.6-10.3); Carbon Dioxide 24 mEq/L (23-29); Chloride 99 mEq/L (98-107); Globulin 2.4 g/dL (2.4-3.5); Glucose 526 mg/dL (70-105); Osmolality,Calculated 297 (280-300); Potassium 4.1 mEq/L (3.5-5.1); Sodium 131 mEq/L (136-145); Total Protein 6.1 g/dL (6.4-8.9); eGFR For African Americans > 60 (> 60); eGFR For Non-African Americans > 60 (> 60)
[2021-04-18 16:39] LABS: Troponin I < 0.03 ng/mL (< 0.04)
[2021-04-18 16:52] LABS: Amphetamine Screen,Urine Negative ng/mL (Cutoff=1000); Barbiturate Screen,Urine Negative ng/mL (Cutoff=200); Benzodiazepines Screen,Urine Negative ng/mL (Cutoff=200); Cannabinoid Screen,Urine Negative ng/mL (Cutoff = 50); Cocaine Screen,Urine Negative ng/mL (Cutoff= 300); Opiate Screen,Urine Negative ng/mL (Cutoff=300); Phencyclidine Screen,Urine Negative ng/mL (Cutoff=25)
[2021-04-18 16:57] LABS: Bilirubin,Urine Negative (Negative); Blood,Urine Negative (Negative); Clarity,Urine Clear (Clear); Color,Urine Yellow (Yellow); Glucose,Urine (UA) 500 mg/dL (Normal); Ketones,Urine Negative (Negative); Leukocyte Esterase,Urine Negative (Negative); Nitrite,Urine Negative (Negative); Protein,Urine Negative (Neg-Trace); Specific Gravity,Urine 1.015 (1.010-1.025); Urobilinogen,Urine Normal (Normal)
[2021-04-18] MEDS ORDERED: *HR* HYDROmorphone (PF) 1 MG/ML SYRINGE IVP ONE (17:00)
[2021-04-18] MEDS ORDERED: Ondansetron 4 MG/2 ML VIAL IVP ONE (17:30)
[2021-04-18 17:35] LABS: Squamous Epithelial Cell,Urine Few per hpf (None-Few)
[2021-04-18] MEDS ORDERED: Insulin Human Regular 5 UNIT in 0.9 % Sodium Chloride 10 ML IV ONE (18:11)
[2021-04-18] MEDS ORDERED: *HR* Dextrose 50 % in Water (Syg) 50 ML SYRINGE IVP PRN (20:24)
[2021-04-18] MEDS ORDERED: Naloxone 0.4 MG/ML INJ IVP PRN (20:24)
[2021-04-18] MEDS ORDERED: Ondansetron 4 MG/2 ML VIAL IVP PRN (20:24)
[2021-04-18] MEDS ORDERED: Oxycodone Myristate [Xtampza Er] 13.5 MG Cap.Spr.12 PO SCH (21:00)
[2021-04-18] MEDS: Sucralfate 1 GM TABLET PO SCH (21:33)
[2021-04-18] MEDS: 0.9 % Sodium Chloride 1,000 ML IVC SCH (21:34)
[2021-04-18] MEDS: *HR* HYDROmorphone (PF) 1 MG/ML SYRINGE IVP PRN (22:34)
[2021-04-19] MEDS: *HR* HYDROmorphone (PF) 1 MG/ML SYRINGE IVP PRN ×2 (05:51→12:52)
[2021-04-19 06:00] LABS: Basophils # 0.1 K/mcL (0.0-0.2); Eosinophils # 0.6 K/mcL (0.0-0.6); Hematocrit 26.9 % (35.3-44.9); Hemoglobin 7.6 g/dL (11.5-15.4); Immature Granulocytes % 0.2 % (0-4); Lymphocytes % 37.9 %; Mean Corpuscular HGB Conc 28.3 g/dL (31.6-35.5); Mean Corpuscular Hemoglobin 21.5 pg (28.0-33.3); Mean Corpuscular Volume 76.2 fL (83.0-100.0); Mean Platelet Volume 10.2 fL (9.4-12.4); Monocytes # 0.5 K/mcL (0.0-1.3); Monocytes % 8.6 %; Neutrophils # 2.1 K/mcL (1.6-8.9); Platelet Count 293 K/mcL (140-400); Red Blood Count 3.53 M/mcL (3.82-4.97); Red Cell Distribution Width 15.3 % (11.5-14.5); Segmented Neutrophils % 40.3 %; White Blood Count 5.3 K/mcL (4.3-11.1)
[2021-04-19 06:21] LABS: BUN/Creatinine Ratio 17 (6-26); Blood Urea Nitrogen 13 mg/dL (8-23); Calcium 9.1 mg/dL (8.6-10.3); Carbon Dioxide 25 mEq/L (23-29); Chloride 105 mEq/L (98-107); Glucose 179 mg/dL (70-105); Osmolality,Calculated 289 (280-300); Potassium 4.2 mEq/L (3.5-5.1); Sodium 137 mEq/L (136-145); eGFR For African Americans > 60 (> 60); eGFR For Non-African Americans > 60 (> 60)
[2021-04-19] MEDS: Sucralfate 1 GM TABLET PO SCH ×2 (06:45→10:10)
[2021-04-19] MEDS ORDERED: predniSONE 5 MG TABLET PO SCH (09:00)
[2021-04-19] MEDS ORDERED: Magnesium Oxide 400 MG TABLET PO SCH (09:00)
[2021-04-19] MEDS ORDERED: Metoprolol XL (24 HR) Succ 50 MG TAB.ER.24H PO SCH (09:00)
[2021-04-19] MEDS ORDERED: Fluconazole 100 MG TABLET PO SCH (09:00)
[2021-04-19] MEDS ORDERED: Multivit/Ca/Min/Fe/FA 1 TAB TABLET PO SCH (09:00)
[2021-04-19] MEDS ORDERED: Pregabalin 50 MG CAPSULE PO SCH (09:00)
[2021-04-19] MEDS ORDERED: Ertapenem 1,000 MG in 0.9 % Sodium Chloride Mini Bag 100 ML IVPB SCH (10:00)
[2021-04-19] MEDS: 0.9 % Sodium Chloride 1,000 ML IVC SCH (10:11)
[2021-04-19 11:49] VITALS: BP 133/75; PULSE 77; RESP 15; O2SAT 96
[2021-04-19] MEDS ORDERED: Folic Acid 1 MG TABLET PO SCH (12:00)
[2021-04-19 12:40] VITALS: TEMP 98
[2021-04-19] MEDS ORDERED: Ketorolac 30 MG/ML VIAL IVP ONE (15:05)
== END 2021-04-19 17:20 | disposition home health service (06) ==
LOC: EMEROOGRE 15:46 → INPGRE 15:46
PROVIDERS: ADMIT Family Medicine; ATTEND Family Medicine